=== PATIENT | female | born 1985 | race Caucasian/White ===

== ENCOUNTER 2018-08-30 10:29 | Observation (INO) | payer MEDICAID, SELFPAY ==
[2018-08-30 11:06] LABS: Absolute Lymphocytes (CBC) 1.1 K/uL (0.7-4.9); Absolute Monocytes 0.5 K/uL (0.1-1.3); Absolute Neutrophil 4.9 K/uL (1.8-8.0); Basophils % 0.8 % (0-1.3); Eosinophils % 2.3 % (0-4.4); Hematocrit 33.5 % (36.0-45.0); Lymphocytes % 15.9 % (15.3-44.8); Monocytes % 6.9 % (3.3-12.3)
[2018-08-30 11:15] LABS: Protime INR 1.18
[2018-08-30] MEDS ORDERED: ACETAMINOPHEN 500 MG TAB ONE (11:15)
[2018-08-30] MEDS ORDERED: NITROGLYCERIN 0.4 MG/TAB SL ONE (11:15)
[2018-08-30 11:27] LABS: ALT/SGPT 23 U/L (12-78); AST/SGOT 24 U/L (15-37); Albumin 2.9 g/dL (3.4-5.0); Alkaline Phosphatase 91 U/L (45-117); BUN Blood Urea Nitrogen 12 mg/dL (7-18); Bicarbonate 27 mmol/L (21-32); Bilirubin Direct 0.2 mg/dL (0-0.2); Bilirubin Total 0.8 mg/dL (0.2-1.0); Glucose Level 263 mg/dL (74-106); Magnesium 1.9 mg/dL (1.8-2.4); NT PRO-BNP 239 pg/mL (<125); Protein, Total 6.8 g/dL (6.4-8.2); Sodium Level 138 mmol/L (136-145); Troponin (Emerg Dept Use Only) < 0.02 ng/mL (0.0-0.045)
--- NOTE | 2018-08-30 11:43 | RAD REPORT ---
EXAM DESCRIPTION: RAD - Chest Pa And Lat (2 Views) - 08/30/2018 11:34 am CLINICAL HISTORY: SOB Chest pain. COMPARISON: Chest Pa And Lat (2 Views) dated 05/09/2017; Chest Single View dated 08/08/2016; CHEST PA AND LAT 2 VIEW dated 01/26/2009 FINDINGS: Mild interstitial pulmonary edema suspected. The heart is mildly enlarged in size. No disp laced fractures. IMPRESSION: Mild CHF versus volume overload pattern.
--- NOTE | 2018-08-30 12:48 | RAD REPORT ---
EXAM DESCRIPTION: CT - Chest For Pe Angio - 08/30/2018 12:36 pm CLINICAL HISTORY: Chest pain. SOB COMPARISON: No comparisons TECHNIQUE: CT angiogram of the pulmonary arteries was performed with MIP. All CT scans are performed using dose optimization technique as appropriate and may include automated exposure control or mA/KV adjustment according to patient size. FINDINGS: No evidence of pulmonary thromboembolism. No acute aortic finding demonstrated. Interstitial lung opacities are present bilaterally suggesting interstitial pneumonia or mild interst itial pulmonary edema. No significant pericardial or pleural fluid. Mild soft tissue prominence in the right hilum suggests mild adenopathy. No concerning bony finding. IMPRESSION: No evidence of pulmonary thromboembolism. Mild interstitial pulmonary edema versus interstitial pneumonitis.
[2018-08-30 13:00] LABS: Urine Blood NEGATIVE (NEG); Urine Glucose 2+ (NEG); Urine Protein TRACE (NEG); Urine Specific Gravity 1.015 (1.005-1.030)
--- NOTE | 2018-08-30 13:01 | EDPHYS ---
Physician Documentation [facility] Name: Pretty Wilson Age: 33 yrs Sex: Female : 1985 Arrival Date: 08/30/2018 Time: 10:32 Bed 5 Private MD: None, None ED Physician James Fowler HPI: 08/30 11:01 This 33 yrs old Female presents to ER via Ambulatory with complaints of Feet wa Swelling, Breathing Difficulty. 11:01 The patient has shortness of breath at rest, and the patient has a history of HTN, wa bronchitis. Onset: The symptoms/episode began/occurred gradually, 1 week(s) ago. Duration: The symptoms are continuous, and are steadily getting worse. The patient's shortness of breath is aggravated by coughing, exertion, light activity, is alleviated by nothing. Associated signs and symptoms: Pertinent positives: productive cough, lower extremity swelling, Pertinent negatives: chest pain, dizziness, fever, hemoptysis, loss of consciousness. Severity of symptoms: At their worst the symptoms were moderate in the emergency department the symptoms are worse moderately. The patient has experienced similar episodes in the past, a few times. The patient has not recently seen a physician. 33 yo F morbidly obese. smoke a pack of cigs per day. h/o HTN non-compliant with meds. no PMD. states Blood glucose has been in the 300's but does not carry a dx of DM nor take meds for it. c/o a week of worsening SOB with minimal exertion. also LE swelling bilaterally. admits to having to sit up to catch breath at night the past 1 week. denies chest pain or dizziness. admits to cough with yellow sputum. denies fever. allergic to motrin. past surgical history noted for tubal ligation and 3 c-sections in the past. 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 - Social history:: Smoking status: Patient uses tobacco products, smokes one pack cigarettes per day. - Ebola Screening: : No symptoms or risks identified at this time. - Family history:: Father has/had hypertension. - Hospitalizations: : No recent hospitalization is reported. ROS: 11:07 Constitutional: Negative for fever, chills, and weight loss, Eyes: Negative for injury, wa pain, redness, and discharge, ENT: Negative for injury, pain, and discharge, Neck: Negative for injury, pain, and swelling, Abdomen/GI: Negative for abdominal pain, nausea, vomiting, diarrhea, and constipation, Back: Negative for injury and pain, : Negative for injury, bleeding, discharge, and swelling, Neuro: Negative for headache, weakness, numbness, tingling, and seizure, Psych: Negative for depression, anxiety, suicide ideation, homicidal ideation, and hallucinations. 11:07 Cardiovascular: Positive for edema, paroxysmal nocturnal dyspnea, Negative for chest pain, orthopnea, palpitations. 11:07 Respiratory: Positive for cough, with yellow sputum, dyspnea on exertion, shortness of breath, at rest. Negative for wheezing. 11:07 MS/extremity: Positive for swelling, of the both lower extremities. 11:07 Skin: Positive for rash, diffusely, psoriatic rash. 11:07 All other systems are negative. Exam: 11:10 Head/Face: Normocephalic, atraumatic. Eyes: Pupils equal round and reactive to light, wa extra-ocular motions intact. Lids and lashes normal. Conjunctiva and sclera are non-icteric and not injected. Cornea within normal limits. Periorbital areas with no swelling, redness, or edema. ENT: Nares patent. No nasal discharge, no septal abnormalities noted. Tympanic membranes are normal and external auditory canals are clear. Oropharynx with no redness, swelling, or masses, exudates, or evidence of obstruction, uvula midline. Mucous membranes moist. Neck: Trachea midline, no thyromegaly or masses palpated, and no cervical lymphadenopathy. Supple, full range of motion without nuchal rigidity, or vertebral point tenderness. No Meningismus. Chest/axilla: Normal chest wall appearance and motion. Nontender with no deformity. No lesions are appreciated. Abdomen/GI: Soft, non-tender, with normal bowel sounds. No distension or tympany. No guarding or rebound. No evidence of tenderness throughout. Back: No spinal tenderness. No costovertebral tenderness. Full range of motion. Neuro: Awake and alert, GCS 15, oriented to person, place, time, and situation. Cranial nerves II-XII grossly intact. Motor strength 5/5 in all extremities. Sensory grossly intact. Cerebellar exam normal. Normal gait. Psych: Awake, alert, with orientation to person, place and time. Behavior, mood, and affect are within normal limits. 11:10 Constitutional: The patient appears in no acute distress, NAD. morbidly obese 11:10 Cardiovascular: Rate: tachycardic, Rhythm: regular, Pulses: no pulse deficits are appreciated, Heart sounds: normal, Edema: 2+ edema to level of left ankle, left foot, left toes, right ankle, right foot and right toes, JVD: is not appreciated. 11:10 Respiratory: the patient does not display signs of respiratory distress, Respirations: tachypnea, that is mild, Breath sounds: decreased breath sounds, that are moderate, all lung flields, Respiratory rate: mild tachypnea 11:10 Musculoskeletal/extremity: Extremities: noted bilateral swelling, edema, 1+ pitting. 11:10 Skin: diffuse psoriatic-like rash noted in all 4 extremities. Vital Signs: 10:38 BP 189 / 104; Pulse 138; Resp 20 S; Temp 97.5(TE); Pulse Ox 96% on R/A; aa5 11:16 BP 168 / 83; Pulse 126; Resp 18; Pulse Ox 97% on 2 lpm NC; hj 12:30 BP 170 / 80; Pulse 120; Resp 18; Pulse Ox 98% on 2 lpm NC; hj 13:46 BP 163 / 98; Pulse 118; Resp 18; Pulse Ox 98% on R/A; hj MDM: 10:36 Patient medically screened. ia 11:13 Differential diagnosis: morbidly obese pt with SOB. tachycardic with elevated BP. wa consider CHF, pna, COPD, PE. will resusc., work up and re-evaluate. Will hold ASA for now due to allergy to ibuprofen. 11:15 Data reviewed: vital signs, nurses notes, EKG. Test interpretation: by ED physician or ia midlevel provider: ECG, EKG: interp. by me: HR 128. sinus tach. isolated Q waves in III. no obvious zonal ischemia. 12:06 Test interpretation: by ED physician or midlevel provider: labs: noted for wa hyperglycemia at 263. BNP elevated at 239. anemia at 10.2/33.5. CXR noted for mild cardiomegaly and pulm edema. Response to treatment: the patient's symptoms have mildly improved after treatment, BP improved with nitro SL to 168/83. will give another dose. still tachy at 126. will await chest CT to r/o PE. 12:51 Test interpretation: by ED physician or midlevel provider: CT chest: no PE. pulm edema wa vs interstitial pneumonitis. 12:52 Response to treatment: the patient's symptoms have markedly improved after treatment, ia will admit for further care. nitro SL. lasix IV. empiric coverage with abx. will admit. BP improved. dyspnea improved. 12:57 Physician consultation: Lucille Rivera MD was called at 12:57. ED course: improved. see ia BP trends. dyspnea improved with ED interventions (see orders). will admit for further care. spoke with admit kathleen Rivera. accepted admit. will see pt in ED. 08/30 10:50 Order name: BMP; Complete Time: 11:44 ia 08/30 10:50 Order name: CBC with Diff ia 08/30 10:50 Order name: Hepatic Function; Complete Time: 11:45 ia 08/30 10:50 Order name: Magnesium; Complete Time: 11:46 ia 08/30 10:50 Order name: NT PRO-BNP; Complete Time: 11:45 ia 08/30 10:50 Order name: PT-INR; Complete Time: 11:45 ia 08/30 10:50 Order name: CT Chest For PE Angio; Complete Time: 12:49 ia 08/30 10:50 Order name: XRAY Chest Pa And Lat (2 Views); Complete Time: 11:45 ia 08/30 10:50 Order name: Troponin (emerg Dept Use Only); Complete Time: 11:46 ia 08/30 11:15 Order name: CBC Smear Scan [facility] 08/30 12:17 Order name: Urine Dipstick--Ancillary (enter results) 08/30 12:17 Order name: Urine --Ancillary (enter results) 08/30 13:09 Order name: TSH; Complete Time: 14:10 ia 08/30 14:11 Order name: Sputum Culture [facility] 08/30 10:50 Order name: EKG; Complete Time: 10:51 ia 08/30 10:50 Order name: Cardiac monitoring; Complete Time: : ia 08/30 10:50 Order name: EKG - Nurse/Tech; Complete Time: : ia 08/30 10:50 Order name: IV Saline Lock; Complete Time: : ia 08/30 10:50 Order name: Labs collected and sent; Complete Time: : ia 08/30 10:50 Order name: O2 Per Protocol; Complete Time: : ia 08/30 14:11 Order name: Heart Healthy [facility] 08/30 14:13 Order name: Echo with Doppler [facility] 08/30 10:50 Order name: O2 Sat Monitoring; Complete Time: : ia 08/30 10:58 Order name: Urine Dipstick-Ancillary (obtain specimen); Complete Time: 12:06 ia 08/30 10:58 Order name: Urine Test (obtain specimen); Complete Time: 12:06 ia Administered Medications: 11:00 Drug: Tylenol 1000 mg Route: PO; hj 11:17 Follow up: Response: No adverse reaction hj 11:00 Drug: Nitroglycerin 0.4 mg Route: Sublingual; hj 11:17 Follow up: Response: No adverse reaction hj 12:05 Drug: Nitroglycerin 0.4 mg Route: Sublingual; hj 12:12 Follow up: Response: No adverse reaction; Pain is decreased hj 12:51 Drug: Lasix 40 mg Route: IVP; Site: left forearm; hj 13:04 Follow up: Response: No adverse reaction hj 13:09 Drug: Metoprolol 25 mg Route: PO; hj 13:40 Follow up: Response: No adverse reaction hj 13:27 Drug: Zithromax 500 mg Route: IVPB; Infused Over: 1 hrs; Site: left forearm; hj 13:40 Follow up: IV Status: Infusion continued hj 14:01 Drug: Rocephin - (cefTRIAXone) 2 grams Route: IVPB; Infused Over: 30 mins; Site: left hj forearm; 14:02 Follow up: IV Status: Completed infusion hj 14:01 Drug: Zofran 4 mg Route: IVP; Site: left forearm; hj 14:01 Follow up: Response: No adverse reaction Disposition: 12:59 Critical Care:. ia Disposition: 08/30/18 13:00 Hospitalization ordered by Lucille Rivera for Observation. Preliminary diagnosis are Acute Dyspnea, Acute CHF, Acute Hyperglycemia. - Bed requested for Telemetry/MedSurg (observation). - Status is Observation. hj - Condition is Stable. - Problem is new. - Symptoms have improved. UTI on Admission? No Critical care time excluding procedures: 12:59 Critical care time: Bedside Care: 15 minutes, Consultation: 5 minutes, Family wa Intervention: 10 minutes. Total time: 30 minutes Signatures: Dispatcher [employer] EDMS Marilee Castaneda Audri, RN RN aa5 Adrian Cazares RN RN James Fowler MD MD wa Corrections: (The following items were deleted from the chart) 14:28 13:00 Hospitalization Ordered by Lucille Rivera MD for Observation. Preliminary bd diagnosis is Acute Dyspnea; Acute CHF; Acute Hyperglycemia. Bed requested for Telemetry/MedSurg (observation). Status is Observation. Condition is Stable. Problem is new. Symptoms have improved. UTI on Admission? No. wa 14:53 14:28 08/30/2018 13:00 Hospitalization Ordered by Lucille Rivera MD for Observation. hj Preliminary diagnosis is Acute Dyspnea; Acute CHF; Acute Hyperglycemia. Bed requested for Telemetry/MedSurg (observation). Status is Observation. Condition is Stable. Problem is new. Symptoms have improved. UTI on Admission? No. bd
--- NOTE | 2018-08-30 13:01 | ER ---
Nurse's Notes [facility] Name: Pretty Wilson Age: 33 yrs Sex: Female : 1985 Arrival Date: 08/30/2018 Time: 10:32 Bed 5 Private MD: None, None Diagnosis: Acute Dyspnea;Acute CHF;Acute Hyperglycemia Presentation: 08/30 10:37 Presenting complaint: Patient states: SOB, slight cough, and marge leg swelling that aa5 began 1 week ago. 10:37 Transition of care: patient was not received from another setting of care. Onset of aa5 symptoms was August 2018. Risk Assessment: Do you want to hurt yourself or someone else? Patient reports no desire to harm self or others. Care prior to arrival: None. 10:37 Acuity: MELYSSA 2 aa5 10:37 Method Of Arrival: Ambulatory aa5 10:50 Initial Sepsis Screen: Does the patient meet any 2 criteria? RR > 20 per min. Does the hj patient have a suspected source of infection?. Triage Assessment: 10:50 General: Appears in no apparent distress. uncomfortable, obese, Behavior is calm, hj cooperative, appropriate for age. Respiratory: Reports shortness of breath labored breathing Onset: The symptoms/episode began/occurred a week, the patient has moderate shortness of breath. 10:50 Pain: Denies pain. hj 10:50 EENT: No signs and/or symptoms were reported regarding the EENT system. Neuro: Level of hj Consciousness is awake, alert, obeys commands, Oriented to person, place, time, situation, Appropriate for age. Cardiovascular: Denies chest pain, Capillary refill < 3 seconds Patient's skin is warm and dry. GI: No signs and/or symptoms were reported involving the gastrointestinal system. : No signs and/or symptoms were reported regarding the genitourinary system. Derm: No signs and/or symptoms reported regarding the dermatologic system. Musculoskeletal: No signs and/or symptoms reported regarding the musculoskeletal system. 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 - Social history:: Smoking status: Patient uses tobacco products, smokes one pack cigarettes per day. - Ebola Screening: : No symptoms or risks identified at this time. - Family history:: Father has/had hypertension. - Hospitalizations: : No recent hospitalization is reported. Screenin:50 Abuse screen: Denies threats or abuse. Denies injuries from another. Nutritional hj screening: No deficits noted. Tuberculosis screening: No symptoms or risk factors identified. Fall Risk None identified. Assessment: 10:50 Cardiovascular: Rhythm is sinus tachycardia. Respiratory: Airway is patent Respiratory hj effort is even, labored, Respiratory pattern is regular, symmetrical, 10:50 General: Appears in no apparent distress. uncomfortable, obese, Behavior is calm, hj cooperative, appropriate for age. Pain: Denies pain. Neuro: Level of Consciousness is awake, alert, obeys commands, Oriented to person, place, time, situation, Appropriate for age. GI: No signs and/or symptoms were reported involving the gastrointestinal system. : No signs and/or symptoms were reported regarding the genitourinary system. EENT: No signs and/or symptoms were reported regarding the EENT system. Derm: No signs and/or symptoms reported regarding the dermatologic system. Musculoskeletal: No signs and/or symptoms reported regarding the musculoskeletal system. 12:01 Reassessment: Patient and/or family updated on plan of care and expected duration. Pain hj level reassessed. Patient is alert, oriented x 3, equal unlabored respirations, skin warm/dry/pink. Patient denies pain at this time. Patient states symptoms have improved. Patient states symptoms have not improved. bathroom;. 13:47 Reassessment: awaiting for room placment;. hj Vital Signs: 10:38 BP 189 / 104; Pulse 138; Resp 20 S; Temp 97.5(TE); Pulse Ox 96% on R/A; aa5 11:16 BP 168 / 83; Pulse 126; Resp 18; Pulse Ox 97% on 2 lpm NC; hj 12:30 BP 170 / 80; Pulse 120; Resp 18; Pulse Ox 98% on 2 lpm NC; hj 13:46 BP 163 / 98; Pulse 118; Resp 18; Pulse Ox 98% on R/A; hj ED Course: 10:32 Patient arrived in ED. mr 10:32 None, None is Private Physician. mr 10:34 Adrian Cazares, THIERRY is Primary Nurse. hj 10:36 James Fowler MD is Attending Physician. wa 10:37 Arm band placed on Patient placed in an exam room, on a stretcher. aa5 10:39 Triage completed. aa5 10:50 Initial lab(s) drawn, by me, sent to lab. Inserted saline lock: 22 gauge in left hj forearm, using aseptic technique. Blood collected. 10:54 EKG done, by transportation engineering technician. reviewed by James Fowler MD. at1 10:55 Patient has correct armband on for positive identification. Placed in gown. Bed in low hj position. Call light in reach. Side rails up X 1. 11:00 Radiology exam delayed due to lab results not completed at this time. (BUN/Creatinine). kw1 11:30 X-ray completed. Patient tolerated procedure well. Patient moved to radiology via ls3 wheelchair. Patient moved back from radiology. 11:31 XRAY Chest Pa And Lat (2 Views) In Process Unspecified. EDMS 11:32 Radiology exam delayed due to test not completed at this time. kw1 11:43 Radiology exam delayed due to test not completed at this time. kw1 12:[address] vr 12:37 CT Chest For PE Angio In Process Unspecified. EDMS 12:37 CT completed. Patient tolerated procedure well. Patient moved back from CT. vr 12:59 Lucille Rivera MD is Hospitalizing Provider. wa 14:42 No provider procedures requiring assistance completed. IV discontinued, intact, hj bleeding controlled, No redness/swelling at site. Pressure dressing applied. Administered Medications: 11:00 Drug: Tylenol 1000 mg Route: PO; hj 11:17 Follow up: Response: No adverse reaction hj 11:00 Drug: Nitroglycerin 0.4 mg Route: Sublingual; hj 11:17 Follow up: Response: No adverse reaction hj 12:05 Drug: Nitroglycerin 0.4 mg Route: Sublingual; hj 12:12 Follow up: Response: No adverse reaction; Pain is decreased hj 12:51 Drug: Lasix 40 mg Route: IVP; Site: left forearm; hj 13:04 Follow up: Response: No adverse reaction hj 13:09 Drug: Metoprolol 25 mg Route: PO; hj 13:40 Follow up: Response: No adverse reaction hj 13:27 Drug: Zithromax 500 mg Route: IVPB; Infused Over: 1 hrs; Site: left forearm; hj 13:40 Follow up: IV Status: Infusion continued hj 14:01 Drug: Rocephin - (cefTRIAXone) 2 grams Route: IVPB; Infused Over: 30 mins; Site: left hj forearm; 14:02 Follow up: IV Status: Completed infusion hj 14:01 Drug: Zofran 4 mg Route: IVP; Site: left forearm; hj 14:01 Follow up: Response: No adverse reaction Outcome: 13:00 Decision to Hospitalize by Provider. ga 14:42 Admitted to Tele accompanied by eron, family with patient, via wheelchair, room 403, with oxygen, with chart, Report called to THIERRY Winters 14:42 Condition: stable 14:42 Instructed on the need for admit, Demonstrated understanding of instructions. 14:53 Patient left the ED. Signatures: Dispatcher [employer] Rain Stanley mr Tamela Grider, RN RN Madelyn Cates Amanda, process development manager EKG Tat1 Adrian Cazares RN RN hj Appiah, William, MD MD wa Wilhelm, Kimberly kw1 Hussein Wright3
[2018-08-30] MEDS ORDERED: CEFTRIAXONE/SWI 1gm 0 GM/0 ML SYR ONE (13:11)
[2018-08-30] MEDS ORDERED: FUROSEMIDE 40 MG/4 ML VIAL ONE (13:11)
[2018-08-30 13:26] LABS: Blood Morphology Comment NOTED (NOT SEEN); Urine White Blood Cell Casts OK
[2018-08-30 13:27] LABS: Anisocytosis 2+; Platelet Estimate ADEQ
[2018-08-30] MEDS ORDERED: METOPROLOL TAR 25 MG TAB ONE (13:29)
[2018-08-30] MEDS ORDERED: AZITHROMYCIN IV 500 MG in NA CHLORIDE 0.9% 250 ML IVPB ONE (14:00)
[2018-08-30] MEDS ORDERED: CEFTRIAXONE/SWI 2gm 2 GM/20 ML SYR IVP ONE (14:00)
[2018-08-30] MEDS ORDERED: ONDANSETRON 4 MG/2 ML VIAL ONE (14:11)
--- NOTE | 2018-08-30 14:20 | EKG ---
Test Date: 2018-08-30 Test Time: 10:50:07 Coupon Clerk: CHERYL MEASUREMENT RESULTS: Intervals: Rate: 128 AK: 134 QRSD: 80 QT: 316 QTc: 461 Craig: P: 58 AK: 134 QRS: 18 T: 66 INTERPRETIVE STATEMENTS: Sinus tachycardia Possible Left atrial enlargement Borderline ECG Compared to ECG 08/08/2016 14:21:20 Sinus rhythm no longer present Electronically Signed On 08-30-18 14:19:17 CDT by Norm Boles
[2018-08-30] MEDS ORDERED: GLUCAGON 1 MG/VIAL IM PRN (15:21)
[2018-08-30] MEDS ORDERED: D50W 25 GM/50 ML SYRINGE IV PRN (15:21)
[2018-08-30 15:24] VITALS: BMI 76.1
[2018-08-30] MEDS: ENOXAPARIN 40 MG/0.4 ML SQ SCH (16:44)
[2018-08-30] MEDS: INSULIN -REGULAR HUMAN 50 UNIT/0.5 ML ML SQ SCH ×2 (16:45→20:25)
[2018-08-30] MEDS: FUROSEMIDE 20 MG/ 2ML VIAL IV SCH (16:46)
--- NOTE | 2018-08-30 16:49 | P.HP ---
Certification for Inpatient Patient admitted to: Observation With expected LOS: <2 Midnights Patient will require the following post-hospital care: None Practitioner: I am a practitioner with admitting privileges, knowledge of patient current condition, hospital course, and medical plan of care. Services: Services provided to patient in accordance with Admission requirements found in Title 42 Section 412.3 of the Code of Federal Regulations Patient History Date of Service: 08/30/18 Primary Care Provider: None Reason for admission: SOB and LE swelling History of Present Illness: 33 y/o F Morbidly obese and Smoker with Pmhx of Uncontrolled Diabetes and HTN due to medication noncompliance presented to the ED with C/o 1 week of SOB and LE Swelling. It has been getting progressively worse and thus patient decided to come to the ER. Pt admits to having to sit up to catch breath at night the past 1 week as well. She is unable to lie flat and now can barely finished 4 word sentences without being SOB. She also c/o admits to cough with Yellow sputum. Pt Denies chest pain, N/V, Abd pain or dizziness. Allergies ibuprofen Allergy (Verified 09/11/11 18:26) Itching/Hives/Rash Home Medications: NK [No Home Meds] 08/30/18 - Past Medical/Surgical History Has patient received pneumonia vaccine in the past: No Diabetic: Yes -: HTN -: frequent Bronchitis -: x 3 - Family History Father -: Heart disease, Hypertension, Diabetes Mother -: Heart disease, Hypertension, Diabetes, Kidney disease - Social History Smoking Status: Current every day smoker Alcohol use: No CD- Drugs: No Caffeine use: Yes Place of Residence: Home Review of Systems 10-point ROS is otherwise unremarkable Physical Examination - Vital Signs Temperature: 98.1 F Blood Pressure: 129/78 Pulse: 103 Respirations: 16 Pulse Ox (%): 93 - Physical Exam General: Alert, Oriented x3, Mild distress, Obese Neck: JVD distended Respiratory: Normal air movement, Crackles/rales Cardiovascular: Regular rate/rhythm, Normal S1 S2, Edema (2+ BL LE) Gastrointestinal: Normal bowel sounds, Soft and benign, Non-distended, No tenderness Musculoskeletal: No tenderness, Swelling Integumentary: Rash(es) (Psorasis) Neurological: Normal speech, Normal strength at 5/5 x4 extr, Normal tone Lymphatics: No axilla or inguinal lymphadenopathy - Studies Laboratory Data (last 24 hrs) 08/30/18 10:50: PT 13.8 H, INR 1.18 08/30/18 10:50: WBC 6.7, Hgb 10.2 L, Hct 33.5 L, Plt Count 218 08/30/18 10:50: Sodium 138, Potassium 4.0, BUN 12, Creatinine 0.55, Glucose 263 H, Magnesium 1.9, Total Bilirubin 0.8, AST 24, ALT 23, Alkaline Phosphatase 91 Assessment and Plan - Problems (Diagnosis) (1) Acute respiratory distress Current Visit: Yes Status: Acute Plan: Acute respiratory Distress 2.2 to CHF vs COPD excaerbation -Currently Saturating 87-90% on RA, and does get Tachypneic while completely 4 word senstences. -Will place on NC and wean as tolerated. (2) CHF exacerbation Current Visit: Yes Status: Acute Plan: BL LE 2+ edema, PE with Crackles consistent with CHF. 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: without truck 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 use Diabetes mellitus complication status: without complication Qualified Code(s): E11.9 - Type 2 diabetes mellitus without complications (5) HTN (hypertension) Current Visit: Yes Status: Acute Plan: Currently Elevated HTN -Will start on BB given concern for CHF and tachycardia Qualifiers: Hypertension type: essential hypertension Qualified Code(s): I10 - Essential (primary) hypertension (6) Obesity Current Visit: Yes Status: Chronic Qualifiers: Obesity type: due to excess calories Obesity classification: unspecified obesity classification Serious obesity comorbidity presence: with serious comorbidity Qualified Code(s): E66.09 - Other obesity due to excess calories Discharge Plan: Home Plan to discharge in: Greater than 2 days - Advance Directives Does patient have a Living Will: No Does patient have a Durable POA for Healthcare: No - Code Status/Comfort Care Code Status Assessed: Yes Critical Care: No
[2018-08-30 18:37] LABS: Urine Appearance CLEAR; Urine Bilirubin NEGATIVE (NEG); Urine Blood NEGATIVE (NEG); Urine Color YELLOW; Urine Glucose NEGATIVE (NEG); Urine Protein NEGATIVE (NEG); Urine Specific Gravity 1.025 (1.005-1.030); Urine Urobilinogen 0.2 mg/dL (0.2-1.0); Urine pH 5.5 (5.0-7.0)
[2018-08-30 19:05] LABS: Urine Microscopic Reflex ORDER UMIC
[2018-08-30] MEDS: LEVALBUTEROL 0.63 MG/3 ML NEB NEB SCH (19:27)
[2018-08-30] MEDS: IPRATROPIUM BROM 0.5MG/2.5ML NEB SCH (19:27)
[2018-08-30 19:32] LABS: Urine Bacteria <20 /HPF (<20); Urine Culture Reflex Order NOT NEEDED; Urine RBC <5 /HPF (NONE SEEN)
[2018-08-31] MEDS: LEVALBUTEROL 0.63 MG/3 ML NEB NEB SCH ×2 (01:20→08:30)
[2018-08-31] MEDS: IPRATROPIUM BROM 0.5MG/2.5ML NEB SCH ×2 (01:20→08:30)
[2018-08-31] MEDS ORDERED: METOPROLOL XL 25 MG TAB PO SCH (06:00)
[2018-08-31 06:36] LABS: Absolute Lymphocytes (CBC) 1.2 K/uL (0.7-4.9); Absolute Monocytes 0.4 K/uL (0.1-1.3); Basophils % 0.7 % (0-1.3); Eosinophils % 2.4 % (0-4.4); Hematocrit 32.4 % (36.0-45.0); Lymphocytes % 17.5 % (15.3-44.8); MPV 9.2 fL (7.6-11.3); Monocytes % 6.5 % (3.3-12.3); RBC Red Blood Cell Count 4.92 M/uL (3.86-4.86)
[2018-08-31 06:46] LABS: ALT/SGPT 25 U/L (12-78); AST/SGOT 24 U/L (15-37); Albumin 2.8 g/dL (3.4-5.0); Alkaline Phosphatase 81 U/L (45-117); BUN Blood Urea Nitrogen 13 mg/dL (7-18); Bicarbonate 29 mmol/L (21-32); Bilirubin Total 0.8 mg/dL (0.2-1.0); Glucose Level 198 mg/dL (74-106); Potassium 3.8 mmol/L (3.5-5.1); Protein, Total 6.4 g/dL (6.4-8.2); Sodium Level 139 mmol/L (136-145)
[2018-08-31] MEDS ORDERED: POTASSIUM CL SA 10 MEQ TAB PO ONE (07:23)
[2018-08-31] MEDS: INSULIN -REGULAR HUMAN 50 UNIT/0.5 ML ML SQ SCH ×2 (07:30→11:30)
[2018-08-31 08:44] VITALS: BP 134/71; TEMP 98.6
[2018-08-31] MEDS: FUROSEMIDE 20 MG/ 2ML VIAL IV SCH (08:50)
[2018-08-31] MEDS: ENOXAPARIN 40 MG/0.4 ML SQ SCH (08:50)
[2018-08-31 08:52] VITALS: O2SAT 94
--- NOTE | 2018-08-31 09:52 | ECHO ---
HEIGHT: 5 ft 4.5 in WEIGHT: 450 lb 8 oz DATE OF STUDY: 08/31/[address]: Lucille Rivera MD 2-DIMENSIONAL: YES M.MODE: YES DOPPLER: YES COLOR FLOW: YES TDS: NO PORTABLE: NO DEFINITY: NO BUBBLE STUDY: NO DIAGNOSIS: CONGESTIVE HEART FAILURE CARDIAC HISTORY: CATHERIZATION: NO SURGERY: NO PROSTHETIC VALVE: NO PACEMAKER: NO MEASUREMENTS (cm) DIASTOLIC (NORMALS) SYSTOLIC (NORMALS) IVSd 1.3 (0.6-1.2) LA Diam 4.3 (1.9-4.0) LVEF 69% LVIDd 5.5 (3.5-5.7) LVIDs 3.4 (2.0-3.5) %FS 39% LVPWd 1.2 (0.6-1.2) Ao Diam 2.8 (2.0-3.7) 2 DIMENSIONAL ASSESSMENT: RIGHT ATRIUM: NORMAL LEFT ATRIUM: DILATED RIGHT VENTRICLE: NORMAL LEFT VENTRICLE: NORMAL TRICUSPID VALVE: NORMAL MITRAL VALVE: NORMAL PULMONIC VALVE: NORMAL AORTIC VALVE: NORMAL PERICARDIAL EFFUSION: NONE AORTIC ROOT: NORMAL LEFT VENTRICULAR WALL MOTION: NORMAL EJECTION FRACTION. DOPPLER/COLOR FLOW: MILD TRICUSPID REGURGITATION RIGHT VENTRICULAR SYSTOLIC PRESSURE 43mmHg. COMMENTS: NORMAL LEFT VENTRICULAR SIZE. NORMAL LEFT VENTRICULAR EJECTION FRACTION. DECREASED LEFT VENTRICULAR COMPLIANCE. LEFT ATRIAL ENLARGEMENT. MILD PULMONARY HYPERTENSION RIGHT VENTRICULAR SYSTOLIC PRESSURE 43mmHg. TECHNOLOGIST: ARUNA YATES
--- NOTE | 2018-08-31 13:20 | P.SSS ---
Patient History Date of Service: 08/31/18 Primary Care Provider: None Reason for admission: SOB and LE swelling History of Present Illness: 33 y/o F Morbidly obese and Smoker with Pmhx of Uncontrolled Diabetes and HTN due to medication noncompliance presented to the ED with C/o 1 week of SOB and LE Swelling. It has been getting progressively worse and thus patient decided to come to the ER. Pt admits to having to sit up to catch breath at night the past 1 week as well. She is unable to lie flat and now can barely finished 4 word sentences without being SOB. She also c/o admits to cough with Yellow sputum. Pt Denies chest pain, N/V, Abd pain or dizziness. Allergies ibuprofen Allergy (Verified 09/11/11 18:26) Itching/Hives/Rash Home Medications: Budesonide/Formoterol Fumarate [Symbicort 80-4.5 Mcg Inhaler] 2 puff IH BID #1 hfa.aer.ad 08/31/18 Levalbuterol Tartrate [Xopenex Hfa] 15 gm IH Q4H PRN #1 hfa.aer.ad 08/31/18 Lisinopril 5 mg PO DAILY #30 tablet 08/31/18 Metformin ER [Glucophage ER*] 1,000 mg PO DAILY #30 tab.sa 08/31/18 Metoprolol Succinate [Toprol Xl*] 25 mg PO [id number] #30 tab 08/31/18 - Past Medical/Surgical History Has patient received pneumonia vaccine in the past: No Diabetic: Yes -: HTN -: frequent Bronchitis -: x 3 - Family History Father -: Heart disease, Hypertension, Diabetes Mother -: Heart disease, Hypertension, Diabetes, Kidney disease - Social History Smoking Status: Current every day smoker Alcohol use: No CD- Drugs: No Caffeine use: Yes Place of Residence: Home Review of Systems 10-point ROS is otherwise unremarkable Physical Examination - Vital Signs Temperature: 98.6 F Blood Pressure: 134/71 Pulse: 111 Respirations: 18 Pulse Ox (%): 98 - Physical Exam General: Alert, In no apparent distress HEENT: Atraumatic, PERRLA, Mucous membr. moist/pink, EOMI, Sclerae nonicteric Neck: Supple, 2+ carotid pulse no bruit, No LAD, Without JVD or thyroid abnormality Respiratory: Clear to auscultation bilaterally, Normal air movement Cardiovascular: Regular rate/rhythm, Normal S1 S2 Gastrointestinal: Normal bowel sounds, No tenderness Musculoskeletal: No tenderness Integumentary: No rashes Neurological: Normal gait, Normal speech, Normal strength at 5/5 x4 extr, Normal tone, Normal affect Lymphatics: No axilla or inguinal lymphadenopathy - Diagnosis (Problem(s)) (1) Acute respiratory distress Current Visit: Yes Status: Acute (2) CHF exacerbation Current Visit: Yes Status: Ruled-out Qualifiers: Heart failure type: diastolic Qualified Code(s): I50.33 - Acute on chronic diastolic (congestive) heart failure (3) COPD exacerbation Current Visit: Yes Status: Acute (4) Diabetes Current Visit: Yes Status: Acute Qualifiers: Diabetes mellitus 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 operator truck driver use Diabetes mellitus complication status: without complication Qualified Code(s): E11.9 - Type 2 diabetes mellitus without complications (5) HTN (hypertension) Current Visit: Yes Status: Acute Qualifiers: Hypertension type: essential hypertension Qualified Code(s): I10 - Essential (primary) hypertension (6) Obesity Current Visit: Yes Status: Chronic Qualifiers: Obesity type: due to excess calories Obesity classification: unspecified obesity classification Serious obesity comorbidity presence: with serious comorbidity Qualified Code(s): E66.09 - Other obesity due to excess calories Treatment Summary: Pt remained stable while here in the hospital Admitted for Acute respiratory Distress 2.2 to Diastolic Dysfunction, Uncontrolled HTN and Uncontrolled Diabetes. Started on IV lasix and ECHO was ordered. ECHO with Diastolic dysfunction and mild Pulmonary HTN. Pt with marked improvement after IV lasix and Duonebs. DC home with F.u with Cardiology and New ppx for metformin, metoprolol and Lisinopril - Disposition Disposition: ROUTINE DISCHARGE Condition: GOOD Patient Discharge Instructions: Please establish Care with PCP and F.u with Cardiology in 1 to 2 week post discharge. Your Echocardiogram is consistent with Pulmonary HTN and dilated Atrium. You will need to be on the following medication. 1. metoprolol 25mg daily. 2. Metformin 1000mg daily. 3. Lisinopril 5mg daily Diet: Regular Activity: Ad ricco
== END 2018-08-31 14:30 | disposition home or self-care (01) ==
LOC: ER 10:29 → ERHOLD 14:10 → 4TH 14:40
PROVIDERS: ADMIT Family Medicine; ATTEND Family Medicine
DX: I11.0 Hypertensive heart disease with heart failure (principal); I50.33 Acute on chronic diastolic (congestive) heart failure; R06.03 Acute respiratory distress; I27.20 Pulmonary hypertension, unspecified; J44.1 Chronic obstructive pulmonary disease with (acute) exacerbation; F17.210 Nicotine dependence, cigarettes, uncomplicated; E11.9 Type 2 diabetes mellitus without complications; E66.9 Obesity, unspecified; Z68.45 Body mass index [BMI] 70 or greater, adult; Z71.3 Dietary counseling and surveillance; Z88.6 Allergy status to analgesic agent; Z91.14 Patient's other noncompliance with medication regimen
CPT/HCPCS: 36415; 71046; 71275; 80048; 80053; 80076; 81003; 81015; 81025; 82962; 83735; 83880; 84443; 84484; 85025; 85610; 87070; 87086; 87088; 87205; 93005; 93306; 94760; 96374; 96375; 99285; G0378; J0456; J0696; J1650; J1940; J2405; Q9967

== ENCOUNTER 2019-06-20 21:14 | Emergency (ER) | payer SELFPAY ==
--- OUTSIDE RECORDS SUMMARY | 2019-06-20 21:15 | XMS REPORT ---
:1985 Author Organization [employer] Care Team Providers Name Role Phone Orin Briscoe Provider Role Unavailable Allergies No Known Allergies Problems Problem Type Condition Code Onset Dates Condition Status Problem Circulation problem I99.9 Active Problem Tobacco use Z72.0 Active Problem Anemia, unspecified type D64.9 Active Problem Morbid obesity E66.01 Active Problem Snoring R06.83 Active Problem Psoriasis L40.9 Active Problem Heart disease I51.9 Active Problem Peripheral edema R60.9 Active Problem Memory problem R41.3 Active Problem Apnea R06.81 Active Problem Congestive heart failure, I50.9 Active unspecified HF chronicity, unspecified heart failure type Problem Hypertension, unspecified type I10 Active Problem Uncontrolled type 2 diabetes E11.65 Active mellitus with hyperglycemia Problem Abnormal heart rhythm I49.9 Active Problem Low TSH level R79.89 Active Problem BMI 70 and over, adult Z68.45 Active Medications No Known Medications Results No Known Results Summary Purpose [employer] Submission
--- OUTSIDE RECORDS SUMMARY | 2019-06-20 21:15 | XMS REPORT ---
:1985 Author Organization [employer] Care Team Providers Name Role Phone KevinOrin estrada Provider Role Unavailable Allergies, Adverse Reactions, Alerts Substance Reaction Event Type Ibuprofen swelling of lips Drug Allergy Problems Problem Type Condition Code Onset Dates Condition Status Assessment Psoriasis L40.9 Active Assessment Tobacco use Z72.0 Active Assessment Apnea R06.81 Active Assessment Snoring R06.83 Active Assessment BMI 70 and over, adult Z68.45 Active Problem Abnormal heart rhythm I49.9 Active Assessment Morbid obesity E66.01 Active Problem BMI 70 and over, adult Z68.45 Active Assessment Follow-up exam Z09 Active Problem Circulation problem I99.9 Active Problem Tobacco use Z72.0 Active Problem Anemia, unspecified type D64.9 Active Problem Morbid obesity E66.01 Active Problem Snoring R06.83 Active Assessment Uncontrolled type 2 diabetes E11.65 Active mellitus with hyperglycemia Assessment Anemia, unspecified type D64.9 Active Problem Psoriasis L40.9 Active Assessment Low TSH level R79.89 Active Problem Heart disease I51.9 Active Problem Peripheral edema R60.9 Active Problem Memory problem R41.3 Active Problem Apnea R06.81 Active Assessment Hypertension, unspecified type I10 Active Assessment Peripheral edema R60.9 Active Assessment Congestive heart failure, I50.9 Active unspecified HF chronicity, unspecified heart failure type Problem Congestive heart failure, I50.9 Active unspecified HF chronicity, unspecified heart failure type Problem Hypertension, unspecified type I10 Active Problem Uncontrolled type 2 diabetes E11.65 Active mellitus with hyperglycemia Problem Low TSH level R79.89 Active Medications Medication Code Code Instructions Start End Status Dosage System Date Date Lisinopril ND 99406414907 10 MG Orally Active 1 tablet Once a day Symbicort ND 98213669108 80-4.5 MCG/ACT Active 2 puffs Inhalation Twice a day Xopenex HFA ND 88264939912 45 MCG/ACT Active 1 puff as Inhalation every needed 4 hrs MetFORMIN HCl ND 72942700190 1000 MG Orally Active 1 tablet ER (MOD) Once a day ProAir HFA [facility] 86033570442 108 (90 Base) Active 2 puffs as MCG/ACT needed Inhalation Every 4-6 hours Metoprolol [facility] 53163580516 25 mg Orally Active 1 capsule Succinate Once a day Furosemide [facility] 92589674194 20 mg Orally August Active 1 tablet as Once a day 2018 needed for swelling Results Name Result Date Reference Range Unit Abnormality Flag HEMOGLOBIN A1C ----A1C 7.3% [id number] Summary Purpose [employer]Works Submission
--- NOTE | 2019-06-20 22:39 | ER ---
Nurse's Notes [facility] Name: Pretty Wilson Age: 34 yrs Sex: Female : 1985 Arrival Date: 06/20/2019 Time: 21:17 Bed 14 Private MD: Diagnosis: Hordeolum internum left upper eyelid Presentation: 06/20 21:22 Presenting complaint: Patient states: L eye has a bump and is bruised since a few days ca1 ago. No visual problems reported. C/O pain on affected area. Transition of care: patient was not received from another setting of care. Mechanism of Injury: No Mechanism of Injury. The patient denies any loss of vision. Onset of symptoms was June 20, 2019. Risk Assessment: Do you want to hurt yourself or someone else? Patient reports no desire to harm self or others. Initial Sepsis Screen: Does the patient meet any 2 criteria? No. Patient's initial sepsis screen is negative. Does the patient have a suspected source of infection? No. Patient's initial sepsis screen is negative. Care prior to arrival: None. 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 - Coronavirus screen:: The patient has NOT traveled to [place], [place], or [place] in the past 14 days. The patient has NOT had contact with known/suspected case of Coronavirus?. - Social history:: Smoking status: Patient reports the use of cigarette tobacco products, smokes one-half pack cigarettes per day. - Ebola Screening: : Patient negative for fever greater than or equal to 101.5 degrees Fahrenheit, and additional compatible Ebola Virus Disease symptoms Patient denies exposure to infectious person Patient denies travel to an Ebola-affected area in the 21 days before illness onset No symptoms or risks identified at this time. Screenin:59 Abuse screen: Denies threats or abuse. Nutritional screening: No deficits noted. jb4 Tuberculosis screening: No symptoms or risk factors identified. Fall Risk None identified. Assessment: 21:59 General: Appears in no apparent distress. comfortable, Behavior is calm, cooperative, jb4 appropriate for age. Pain: Complains of pain in left upper eyelid Pain does not radiate. Pain currently is 0 out of 10 on a pain scale. at worst was 6 out of 10 on a pain scale. Quality of pain is described as aching, Pain began 2-3 days ago. Neuro: Level of Consciousness is awake, alert, obeys commands, confused, Oriented to person, place, time, situation. Cardiovascular: Patient's skin is warm and dry. Respiratory: Airway is patent Respiratory effort is even, unlabored, Respiratory pattern is regular, symmetrical. GI: No signs and/or symptoms were reported involving the gastrointestinal system. : No signs and/or symptoms were reported regarding the genitourinary system. EENT: Eyes are clear. Sclera/Cornea are clear in outer aspect of conjuctiva of right eye, iris of right eye, inner aspect of conjuctiva of right eye, outer aspect of conjuctiva of left eye, iris of left eye and inner aspect of conjunctiva of left eye Lid(s) w/ stye noted left upper eyelid. Derm: Skin is intact, Skin is pink, warm \T\ dry. Musculoskeletal: Circulation, motion, and sensation intact. Range of motion: intact in all extremities. 23:12 Reassessment: Patient appears in no apparent distress at this time. Patient and/or jb4 family updated on plan of care and expected duration. Pain level reassessed. Patient is alert, oriented x 3, equal unlabored respirations, skin warm/dry/pink. Vital Signs: 21:26 BP 146 / 82; Pulse 90; Resp 19 S; Temp 97.4(O); Pulse Ox 99% on R/A; Weight 204.12 kg ca1 (R); Height 5 ft. 5 in. (165.10 cm) (R); 23:12 BP 149 / 77; Pulse 81; Resp 16; Pulse Ox 99% on R/A; jb4 21:26 Body Mass Index 74.88 (204.12 kg, 165.10 cm) ca1 ED Course: 21:17 Patient arrived in ED. cl3 21:23 Triage completed. ca1 21:26 Arm band placed on right wrist. ca1 21:49 Jay Brian NP is PHCP. pm1 21:49 Peter Moran MD is Attending Physician. pm1 21:58 Chandra Ayoub, RN is Primary Nurse. jb4 21:59 Patient has correct armband on for positive identification. Bed in low position. Call jb4 light in reach. Side rails up X 1. 23:12 No provider procedures requiring assistance completed. Patient did not have IV access jb4 during this emergency room visit. Administered Medications: 22:45 Drug: Crucible 5 mg-325 mg 1 tabs {Note: Rass score 0.} Route: PO; jb4 23:14 Follow up: Response: No adverse reaction; Pain is decreased; RASS: Alert and Calm (0) jb4 Outcome: 22:38 Discharge ordered by MD. pm1 23:12 Discharged to home ambulatory, with family. jb4 23:12 Condition: stable 23:12 Discharge instructions given to patient, family, Instructed on discharge instructions, follow up and referral plans. medication usage, Demonstrated understanding of instructions, follow-up care, medications, Prescriptions given X 2. 23:14 Patient left the ED. jb4 Signatures: Jay Brian, [employer] pm1 Chandra Ayoub, RN RN jb4 Rosalva Kay RN RN ca1 Jessica Diaz cl3 Corrections: (The following items were deleted from the chart) 22:45 22:45 Crucible 5 mg-325 mg 1 tabs PO jb4 jb4
--- NOTE | 2019-06-20 22:39 | EDPHYS ---
Physician Documentation [facility] Name: Pretty Wilson Age: 34 yrs Sex: Female : 1985 Arrival Date: 06/20/2019 Time: 21:17 Bed 14 Private MD: ED Physician Peter Moran HPI: 06/20 22:33 This 34 yrs old Female presents to ER via Ambulatory with complaints of Left pm1 Eye Pain. 22:33 The patient is experiencing pain, to the left eye, possible stye. Onset: The pm1 symptoms/episode began/occurred 3 day(s) ago. Duration: the symptoms are continuous. Aggravated by nothing. Alleviated by nothing. Associated signs and symptoms: Pertinent negatives: fever, headache. Severity of symptoms: in the emergency department the symptoms are worse. The patient has not experienced similar symptoms in the past. It is unknown whether or not the patient has recently seen a physician. 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 - Coronavirus screen:: The patient has NOT traveled to [place], [place], or [place] in the past 14 days. The patient has NOT had contact with known/suspected case of Coronavirus?. - Social history:: Smoking status: Patient reports the use of cigarette tobacco products, smokes one-half pack cigarettes per day. - Ebola Screening: : Patient negative for fever greater than or equal to 101.5 degrees Fahrenheit, and additional compatible Ebola Virus Disease symptoms Patient denies exposure to infectious person Patient denies travel to an Ebola-affected area in the 21 days before illness onset No symptoms or risks identified at this time. ROS: 22:33 Constitutional: Negative for fever, chills, and weight loss. pm1 22:33 ENT: Negative for injury, pain, and discharge, Neck: Negative for injury, pain, and swelling, Cardiovascular: Negative for chest pain, palpitations, and edema, Respiratory: Negative for shortness of breath, cough, wheezing, and pleuritic chest pain, MS/Extremity: Negative for injury and deformity, Skin: Negative for injury, rash, and discoloration, Neuro: Negative for headache, weakness, numbness, tingling, and seizure. 22:33 Eyes: Positive for pain, swelling, of the left upper eyelid, Negative for discharge, visual disturbance. 22:33 All other systems are negative. Exam: 22:33 Constitutional: This is a well developed, well nourished patient who is awake, alert, pm1 and in no acute distress. Head/Face: Normocephalic, atraumatic. 22:33 ENT: Nares patent. No nasal discharge, no septal abnormalities noted. Tympanic membranes are normal and external auditory canals are clear. Oropharynx with no redness, swelling, or masses, exudates, or evidence of obstruction, uvula midline. Mucous membranes moist. Cardiovascular: Regular rate and rhythm with a normal S1 and S2. No gallops, murmurs, or rubs Respiratory: Lungs have equal breath sounds bilaterally, clear to auscultation and percussion. No rales, rhonchi or wheezes noted. No increased work of breathing, no retractions or nasal flaring. 22:33 Eyes: Pupils: no acute changes, Extraocular movements: no acute changes, Conjunctiva: normal, Lids and lashes: stye, on the left lid, upper. 22:33 Skin: Appearance: normal except for affected area, consistent with eczema, on the right arm and left arm. 22:33 Neuro: Orientation: is normal, Motor: is normal, moves all fours. Vital Signs: 21:26 BP 146 / 82; Pulse 90; Resp 19 S; Temp 97.4(O); Pulse Ox 99% on R/A; Weight 204.12 kg ca1 (R); Height 5 ft. 5 in. (165.10 cm) (R); 23:12 BP 149 / 77; Pulse 81; Resp 16; Pulse Ox 99% on R/A; jb4 21:26 Body Mass Index 74.88 (204.12 kg, 165.10 cm) ca1 MDM: 21:58 Patient medically screened. pm1 22:33 Data reviewed: vital signs. Data interpreted: Pulse oximetry: on room air is 99 %. pm1 Interpretation: normal. Counseling: I had a detailed discussion with the patient and/or guardian regarding: the historical points, exam findings, and any diagnostic results supporting the discharge/admit diagnosis, the need for outpatient follow up, for definitive care, an opthalmologist, to return to the emergency department if symptoms worsen or persist or if there are any questions or concerns that arise at home. Administered Medications: 22:45 Drug: [place] 5 mg-325 mg 1 tabs {Note: Rass score 0.} Route: PO; jb4 23:14 Follow up: Response: No adverse reaction; Pain is decreased; RASS: Alert and Calm (0) jb4 Disposition: 06/21 05:19 Co-signature as Attending Physician, Peter Moran MD I agree with the assessment and 4 plan of care. Disposition: 06/20/19 22:38 Discharged to Home. Impression: Hordeolum internum left upper eyelid. - Condition is Stable. - Discharge Instructions: Stye. - Prescriptions for Tylenol- Codeine #3 300-30 mg Oral Tablet - take 2 tablets by ORAL route every 6 hours As needed; 20 tablet. Erythromycin 5 mg/gram (0.5 %) Ophthalmic Ointment - apply 1 centimeter by OPHTHALMIC route every 8 hours for 7 days; 1 tube. - Medication Reconciliation Form, Thank You Letter, Antibiotic Education, Prescription Opioid Use form. - Follow up: Emergency Department; When: As needed; Reason: Worsening of condition. Follow up: Private Physician; When: 2 - 3 days; Reason: Recheck today's complaints, Continuance of care, Re-evaluation by your physician. - Problem is new. - Symptoms have improved. Signatures: Jay Brian NP [employer] pm1 Chandra Ayoub RN RN 4 Peter Moran MD MD [facility] Rosalva Kay RN RN ca1 Corrections: (The following items were deleted from the chart) 06/20 23:14 22:38 06/20/2019 22:38 Discharged to Home. Impression: Hordeolum internum left upper jb4 eyelid. Condition is Stable. Forms are Medication Reconciliation Form, Thank You Letter, Antibiotic Education, Prescription Opioid Use. Follow up: Emergency Department; When: As needed; Reason: Worsening of condition. Follow up: Private Physician; When: 2 - 3 days; Reason: Recheck today's complaints, Continuance of care, Re-evaluation by your physician. Problem is new. Symptoms have improved. pm1
[2019-06-20] MEDS ORDERED: HYDROCODONE/APAP 5/325 MG TAB ONE (22:41)
[2019-06-22 23:55] VITALS: TEMP 97.4; O2SAT 99
[2019-06-22 23:56] VITALS: BP 149/77
== END 2019-06-20 23:14 | disposition home or self-care (01) ==
LOC: ER 21:14
DX: H00.024 Hordeolum internum left upper eyelid (principal); I10 Essential (primary) hypertension; E11.9 Type 2 diabetes mellitus without complications; F17.210 Nicotine dependence, cigarettes, uncomplicated; Z88.6 Allergy status to analgesic agent
CPT/HCPCS: 99283

== ENCOUNTER 2019-06-27 12:33 | Emergency (ER) | payer SELFPAY ==
--- OUTSIDE RECORDS SUMMARY | 2019-06-27 12:35 | XMS REPORT ---
[...] Medications Results No Known Results Summary Purpose eClinicalCeram Hyd Submission
--- OUTSIDE RECORDS SUMMARY | 2019-06-27 12:35 | XMS REPORT ---
[...] Status Dosage System Date Date Lisinopril ND 88802478516 10 MG Orally Active 1 tablet Once a day Symbicort ND 82141396050 80-4.5 MCG/ACT Active 2 puffs Inhalation Twice a day Xopenex HFA ND 15407309429 45 MCG/ACT Active 1 puff as Inhalation every needed 4 hrs MetFORMIN HCl ND 05358555652 1000 MG Orally Active 1 tablet ER (MOD) Once a day ProAir HFA [facility] 36301180358 108 (90 Base) Active 2 puffs as MCG/ACT needed Inhalation Every 4-6 hours Metoprolol [facility] 97259358261 25 mg Orally Active 1 capsule Succinate Once a day Furosemide [facility] 22869860201 20 mg Orally August Active 1 tablet as Once a day 2018 needed for swelling Results Name Result Date Reference Range Unit Abnormality Flag HEMOGLOBIN A1C ----A1C 7.3% [id number] Summary Purpose eClinicalWorks Submission
[2019-06-27] MEDS ORDERED: ALBUTEROL 2.5 MG/3 ML NEB SOL ONE (13:25)
[2019-06-27] MEDS ORDERED: IPRATROPIUM BROM 0.5MG/2.5ML ONE (13:25)
[2019-06-27 13:28] LABS: Urine Blood NEGATIVE (NEG); Urine Glucose NEGATIVE (NEG); Urine Protein NEGATIVE (NEG); Urine Specific Gravity 1.015 (1.005-1.030)
--- NOTE | 2019-06-27 14:06 | RAD REPORT ---
EXAM DESCRIPTION: Leonor Harkins (2 Views)06/27/2019 1:59 pm CLINICAL HISTORY: Cough COMPARISON: 2014 FINDINGS: The lungs appear clear of acute infiltrate. The heart is mildly enlarged IMPRESSION: No acute abnormalities displayed
--- NOTE | 2019-06-27 14:07 | RAD REPORT ---
EXAM DESCRIPTION: RAD - Forearm Right - 06/27/2019 1:59 pm CLINICAL HISTORY: Right arm pain FINDINGS: No fracture is seen. No bony lesion. Negative ulnar variance
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
[2019-06-27 14:56] VITALS: BP 151/99; TEMP 98.4
[2019-06-27 14:57] VITALS: O2SAT 97
== END 2019-06-27 14:34 | disposition home or self-care (01) ==
LOC: ER 12:33
DX: J06.9 Acute upper respiratory infection, unspecified (principal); M54.5 Low back pain; M79.631 Pain in right forearm; V43.52XA Car driver injured in collision with other type car in traffic accident, initial encounter; Y93.89 Activity, other specified; Y92.410 Unspecified street and highway as the place of occurrence of the external cause
CPT/HCPCS: 71046; 81003; 81025; 87804; 99284

== ENCOUNTER 2019-07-09 11:21 | Emergency (ER) | payer SELFPAY ==
--- OUTSIDE RECORDS SUMMARY | 2019-07-09 11:23 | XMS REPORT ---
[...] Medications Results No Known Results Summary Purpose eClinicalProspect Accelerator Submission
--- OUTSIDE RECORDS SUMMARY | 2019-07-09 11:23 | XMS REPORT ---
[...] Status Dosage System Date Date Lisinopril ND 23267293688 10 MG Orally Active 1 tablet Once a day Symbicort ND 16010906100 80-4.5 MCG/ACT Active 2 puffs Inhalation Twice a day Xopenex HFA ND 74824080834 45 MCG/ACT Active 1 puff as Inhalation every needed 4 hrs MetFORMIN HCl ND 59155204199 1000 MG Orally Active 1 tablet ER (MOD) Once a day ProAir HFA [facility] 82962322597 108 (90 Base) Active 2 puffs as MCG/ACT needed Inhalation Every 4-6 hours Metoprolol [facility] 25908894638 25 mg Orally Active 1 capsule Succinate Once a day Furosemide [facility] 24442794462 20 mg Orally August Active 1 tablet as Once a day 2018 needed for swelling Results Name Result Date Reference Range Unit Abnormality Flag HEMOGLOBIN A1C ----A1C 7.3% [id number] Summary Purpose eClinicalWorks Submission
[2019-07-09] MEDS ORDERED: lisinopriL 10 MG TAB ONE (12:18)
--- NOTE | 2019-07-09 12:20 | RAD REPORT ---
EXAM DESCRIPTION: RAD - Chest Single View - 07/09/2019 12:09 pm CLINICAL HISTORY: COUGH Chest pain. COMPARISON: Chest Pa And Lat (2 Views) dated 06/27/2019; Chest Pa And Lat (2 Views) dated 08/30/2018; Chest Pa And Lat (2 Views) dated 05/09/2017; Chest Single View dated 08/08/2016 FINDINGS: Portable technique limits examination quality. The lungs are grossly clear. The heart is mildly enlarged in size. No displaced fractures. IMPRESSION: No acute intrathoracic process suspected.
[2019-07-09 13:25] LABS: Absolute Lymphocytes (CBC) 2.1 K/uL (0.7-4.9); Basophils % 0.2 % (0-1.3); Hematocrit 34.7 % (36.0-45.0); Lymphocytes % 24.3 % (15.3-44.8); MPV 10.1 fL (7.6-11.3); RBC Red Blood Cell Count 5.17 M/uL (3.86-4.86)
[2019-07-09 13:46] LABS: ALT/SGPT 17 U/L (12-78); AST/SGOT 16 U/L (15-37); Albumin 3.1 g/dL (3.4-5.0); Alkaline Phosphatase 75 U/L (45-117); BUN Blood Urea Nitrogen 13 mg/dL (7-18); Bicarbonate 24 mmol/L (21-32); Bilirubin Total 0.6 mg/dL (0.2-1.0); Glucose Level 116 mg/dL (74-106); Potassium 4.7 mmol/L (3.5-5.1); Sodium Level 142 mmol/L (136-145)
--- NOTE | 2019-07-09 13:51 | EDPHYS ---
Physician Documentation [facility] Name: Pretty Wilson Age: 34 yrs Sex: Female : 1985 Arrival Date: 07/09/2019 Time: 11:26 Bed 6 Private MD: ED Physician Daniel Sánchez HPI: 11:55 This 34 yrs old Female presents to ER via Unassigned with complaints of High melissa Blood Pressure. 11:55 The patient has elevated blood pressure and discovered this at home. Onset: The melissa symptoms/episode began/occurred 3 day(s) ago. Modifying factors: The symptoms are aggravated by activity, The symptoms are alleviated by remaining still, prescription meds. Associated signs and symptoms: Pertinent positives: headache. Severity of symptoms: At its worst the blood pressure was moderate, in the emergency department the blood pressure is unchanged. The patient has experienced similar episodes in the past, multiple times. 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 - Social history:: Smoking status: Patient reports the use of cigarette tobacco products, smokes one pack cigarettes per day. - Family history:: not pertinent. ROS: 11:55 Constitutional: Negative for fever, chills, and weight loss, Eyes: Negative for injury, melissa pain, redness, and discharge, ENT: Negative for injury, pain, and discharge, Neck: Negative for injury, pain, and swelling, Cardiovascular: Negative for chest pain, palpitations, and edema, Respiratory: Negative for shortness of breath, cough, wheezing, and pleuritic chest pain, Abdomen/GI: Negative for abdominal pain, nausea, vomiting, diarrhea, and constipation, Back: Negative for injury and pain, : Negative for injury, bleeding, discharge, and swelling, MS/Extremity: Negative for injury and deformity, Skin: Negative for injury, rash, and discoloration, Neuro: Negative for headache, weakness, numbness, tingling, and seizure, Psych: Negative for depression, anxiety, suicide ideation, homicidal ideation, and hallucinations, Allergy/Immunology: Negative for hives, rash, and allergies, Endocrine: Negative for neck swelling, polydipsia, polyuria, polyphagia, and marked weight changes, Hematologic/Lymphatic: Negative for swollen nodes, abnormal bleeding, and unusual bruising. Exam: 11:57 Constitutional: This is a well developed, well nourished patient who is awake, alert, melissa and in no acute distress. Head/Face: Normocephalic, atraumatic. Eyes: Pupils equal round and reactive to light, extra-ocular motions intact. Lids and lashes normal. Conjunctiva and sclera are non-icteric and not injected. Cornea within normal limits. Periorbital areas with no swelling, redness, or edema. ENT: Nares patent. No nasal discharge, no septal abnormalities noted. Tympanic membranes are normal and external auditory canals are clear. Oropharynx with no redness, swelling, or masses, exudates, or evidence of obstruction, uvula midline. Mucous membranes moist. Neck: Trachea midline, no thyromegaly or masses palpated, and no cervical lymphadenopathy. Supple, full range of motion without nuchal rigidity, or vertebral point tenderness. No Meningismus. Chest/axilla: Normal chest wall appearance and motion. Nontender with no deformity. No lesions are appreciated. Cardiovascular: Regular rate and rhythm with a normal S1 and S2. No gallops, murmurs, or rubs. Normal PMI, no JVD. No pulse deficits. Respiratory: Lungs have equal breath sounds bilaterally, clear to auscultation and percussion. No rales, rhonchi or wheezes noted. No increased work of breathing, no retractions or nasal flaring. Abdomen/GI: Soft, non-tender, with normal bowel sounds. No distension or tympany. No guarding or rebound. No evidence of tenderness throughout. Back: No spinal tenderness. No costovertebral tenderness. Full range of motion. Skin: Warm, dry with normal turgor. Normal color with no rashes, no lesions, and no evidence of cellulitis. MS/ Extremity: Pulses equal, no cyanosis. Neurovascular intact. Full, normal range of motion. Neuro: Awake and alert, GCS 15, oriented to person, place, time, and situation. Cranial nerves II-XII grossly intact. Motor strength 5/5 in all extremities. Sensory grossly intact. Cerebellar exam normal. Normal gait. Psych: Awake, alert, with orientation to person, place and time. Behavior, mood, and affect are within normal limits. 11:57 Musculoskeletal/extremity: DVT Exam: No signs of deep vein thrombosis. no pain, no swelling, no tenderness, negative Homans' sign noted on exam, no appreciated bluish discoloration, no erythema, no increased warmth. 13:49 Cardiovascular: Rate: normal, Rhythm: regular, Pulses: no pulse deficits are melissa appreciated, Heart sounds: normal, normal S1and S2, no S3 or S4, no murmur, no rub, no gallop, Edema: is not appreciated, JVD: is not appreciated. Vital Signs: 11:45 BP 182 / 81; Pulse 98; Resp 16 S; Temp 97.9(O); Pulse Ox 100% on R/A; ia1 13:37 BP 144 / 97; Pulse 94; Resp 16 S; Pulse Ox 100% on R/A; jl7 14:21 BP 140 / 88; Pulse 90; Resp 16 S; Pulse Ox 100% on R/A; jl7 MDM: 11:41 Patient medically screened. [facility] 11:57 Data reviewed: vital signs, nurses notes, lab test result(s), EKG, radiologic studies, melissa plain films. 11:54 Order name: CBC with Diff [facility] 11:54 Order name: Comprehensive Metabolic Panel; Complete Time: 13:49 [facility] 11:54 Order name: EKG; Complete Time: 11:55 [facility] 11:54 Order name: Chest Single View XRAY; Complete Time: 13:13 [facility] 14:02 Order name: CBC Smear Scan ED[facility] 11:54 Order name: EKG - Nurse/Tech; Complete Time: 14:13 [facility] 12:38 Order name: Labs - recollect needed: cbc recollect; Complete Time: 13:35 12:45 Order name: Labs - recollect needed: chemistry; Complete Time: 13:35 eb Administered Medications: 12:27 Drug: Lisinopril 10 mg Route: PO; jl7 13:30 Follow up: Response: No adverse reaction; Blood pressure is lowered [facility] Disposition: 07/09/19 13:50 Discharged to Home. Impression: Essential (primary) hypertension, Type 2 diabetes mellitus. - Condition is Stable. - Discharge Instructions: Type 2 Diabetes Mellitus, Diagnosis, Adult, Hypertension, Hypertension, Ywvm-[id number], How to Take Your Blood Pressure, Tqnc-bc-Qabo, Aspirin and Your Heart, Type 2 Diabetes Mellitus, Diagnosis, Adult, Cudg-mz-Jrvk, Managing Your Hypertension. - Prescriptions for Lisinopril 10 mg Oral Tablet - take 1 tablet by ORAL route once daily; 20 tablet. - Medication Reconciliation Form, Thank You Letter, Antibiotic Education, Prescription Opioid Use, Work release form form. - Follow up: Private Physician; When: 2 - 3 days; Reason: Recheck today's complaints, Continuance of care, Re-evaluation by your physician. Follow up: Dmitry Saavedra; When: 2 - 3 days; Reason: Recheck today's complaints, Re-evaluation by your physician. - Problem is new. - Symptoms have improved. Signatures: Dispatcher [employer] EDDaniel Georges MD MD cha Williams, Irene, RN RN iw Leal, Jahala, RN RN jl7 Yasmine Clement Ivonne ia1 Corrections: (The following items were deleted from the chart) 12:27 11:55 Urine Test [place]. [place] [id number] 12:28 11:55 Urine Dipstick-Ancillary ordered. melissa [facility] 14:23 13:50 07/09/2019 13:50 Discharged to Home. Impression: Essential (primary) [facility] hypertension; Type 2 diabetes mellitus. Condition is Stable. Discharge Instructions: Hypertension, Hypertension, Ktwr-bs-[id number], How to Take Your Blood Pressure, Hwam-bc-Pdmx, Aspirin and Your Heart, Managing Your Hypertension. Prescriptions for Lisinopril 10 mg Oral Tablet - take 1 tablet by ORAL route once daily; 20 tablet. and Forms are Medication Reconciliation Form, Thank You Letter, Antibiotic Education, Prescription Opioid Use. Follow up: Private Physician; When: 2 - 3 days; Reason: Recheck today's complaints, Continuance of care, Re-evaluation by your physician. Follow up: Dmitry Saavedra; When: 2 - 3 days; Reason: Recheck today's complaints, Re-evaluation by your physician. Problem is new. Symptoms have improved. melissa
--- NOTE | 2019-07-09 13:51 | ER ---
Nurse's Notes [facility] Name: Pretty Wilson Age: 34 yrs Sex: Female : 1985 Arrival Date: 07/09/2019 Time: 11:26 Bed 6 Private MD: Diagnosis: Essential (primary) hypertension;Type 2 diabetes mellitus Presentation: 11:45 Chief complaint: Patient states: Out of BP meds , x2 days intermittent palpitations. ia1 11:45 Coronavirus screen: The patient has NOT traveled to [place] in the past 14 days. Proceed ia1 with normal triage procedures. Ebola Screen: No symptoms or risks identified at this time. Initial Sepsis Screen: Does the patient meet any 2 criteria? No. Patient's initial sepsis screen is negative. Does the patient have a suspected source of infection? No. Patient's initial sepsis screen is negative. Risk Assessment: Do you want to hurt yourself or someone else? Patient reports no desire to harm self or others. 11:45 Method Of Arrival: Ambulatory ia1 11:45 Acuity: MELYSSA 3 jl7 12:00 Onset of symptoms was July 07, 2019. 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 - Social history:: Smoking status: Patient reports the use of cigarette tobacco products, smokes one pack cigarettes per day. - Family history:: not pertinent. Screenin:45 Abuse screen: Denies threats or abuse. Denies injuries from another. Nutritional jl7 screening: No deficits noted. Tuberculosis screening: No symptoms or risk factors identified. Fall Risk None identified. Assessment: 11:45 General: Appears in no apparent distress. uncomfortable, Behavior is calm, cooperative, jl7 appropriate for age. Pain: Denies pain. Neuro: Level of Consciousness is awake, alert, obeys commands, Oriented to person, place, time, situation. Cardiovascular: Patient's skin is warm and dry. Respiratory: Airway is patent Respiratory effort is even, unlabored, Respiratory pattern is regular, symmetrical. Derm: Skin is pink, warm \T\ dry. 13:00 Reassessment: Patient appears in no apparent distress at this time. No changes from jl7 previously documented assessment. Patient and/or family updated on plan of care and expected duration. Pain level reassessed. Patient is alert, oriented x 3, equal unlabored respirations, skin warm/dry/pink. Vital Signs: 11:45 BP 182 / 81; Pulse 98; Resp 16 S; Temp 97.9(O); Pulse Ox 100% on R/A; ia1 13:37 BP 144 / 97; Pulse 94; Resp 16 S; Pulse Ox 100% on R/A; jl7 14:21 BP 140 / 88; Pulse 90; Resp 16 S; Pulse Ox 100% on R/A; jl7 ED Course: 11:26 Patient arrived in ED. mr 11:34 Desean Cruz RN is Primary Nurse. jl7 11:41 Daniel Sánchez MD is Attending Physician. melissa 11:45 Patient has correct armband on for positive identification. Placed in gown. Bed in low jl7 position. Call light in reach. Side rails up X 1. 11:45 Initial lab(s) drawn, by me, sent to lab. Missed attempt(s): 22 gauge in left forearm. jl7 Bleeding controlled, band aid applied, catheter tip intact. 11:57 Triage completed. ia1 12:11 Chest Single View XRAY In Process Unspecified. EDMS 12:28 Arm band placed on right wrist. jl7 13:50 Dmitry Saavedra MD is Referral Physician. melissa 14:21 No provider procedures requiring assistance completed. Patient did not have IV access jl7 during this emergency room visit. Administered Medications: 12:27 Drug: Lisinopril 10 mg Route: PO; jl7 13:30 Follow up: Response: No adverse reaction; Blood pressure is lowered jl7 Outcome: 13:50 Discharge ordered by . melissa 14:21 Attestation : No documentation by student nurse for this pt. jl7 14:21 Discharged to home ambulatory. 14:21 Condition: good 14:21 Discharge instructions given to patient, Instructed on discharge instructions, follow up and referral plans. medication usage, Demonstrated understanding of instructions, follow-up care, medications, Prescriptions given X 1. 14:23 Patient left the ED. jl7 Signatures: Dispatcher [employer] EDDaniel Georges MD MD cha Rivera, Desean Becerril RN RN jl7 Ita Kilpatrick ia1 Corrections: (The following items were deleted from the chart) 13:36 11:45 Acuity: MELYSSA 3 ia1 jlYadiel
[2019-07-09 14:02] LABS: Blood Morphology Comment NOTED (NOT SEEN); Hypochromasia 1+; Platelet Estimate ADEQ; White Blood Cell Scan OK
[2019-07-09 14:45] VITALS: TEMP 97.9; O2SAT 100
[2019-07-09 14:48] VITALS: BP 140/88
--- NOTE | 2019-07-11 15:39 | EKG ---
Test Date: 2019-07-09 Test Time: 13:45:56 Bank Analyst: MACI MEASUREMENT RESULTS: Intervals: Rate: 84 PA: 134 QRSD: 88 QT: 400 QTc: 472 Casey: P: 60 PA: 134 QRS: 64 T: 51 INTERPRETIVE STATEMENTS: Normal sinus rhythm Right atrial enlargement Borderline ECG Compared to ECG 08/30/2018 10:50:07 Sinus tachycardia no longer present Electronically Signed On 07-11-19 15:38:11 RN PARALEGAL by Norm Boles
== END 2019-07-09 14:23 | disposition home or self-care (01) ==
LOC: ER 11:21
DX: I10 Essential (primary) hypertension (principal); E11.9 Type 2 diabetes mellitus without complications
CPT/HCPCS: 36415; 71045; 80053; 85025; 93005; 99284

== ENCOUNTER 2019-11-27 11:16 | Emergency (ER) | payer SELFPAY ==
--- OUTSIDE RECORDS SUMMARY | 2019-11-27 11:19 | XMS REPORT | Continuity of Care Document ---
:1985 Author Organization [facility] Address [address] [place] [address] Dr. Robertson [address] [place] [id number] Care Team Providers Name Role Phone Unavailable Unavailable Unavailable Problems Condition Condition Condition Status Onset Resolution Last Treating Co mments Source Name Details Category Date Date Treatment Clinician Date Psoriasis Psoriasis Problem [facility] Tobacco Tobacco Problem [facility] Apnea Apnea Problem [facility] Snoring Snoring Problem [facility] BMI 70 and BMI 70 and Problem Active [facility] over, over, [facility] adult adult [facility] Abnormal Abnormal Problem Active [facility] heart heart [facility] rhythm rhythm [facility] Morbid Morbid Problem Active [facility] obesity obesity [facility] Circulatio Circulatio Problem Active [facility] n problem n problem [facility] Anemia, Anemia, Problem Active [facility] unspecifie unspecifie Aida kes - d type d type [facility] Uncontroll Uncontroll Problem Active [facility] ed type 2 ed type 2 [facility] - diabetes diabetes Memori a mellitus mellitus l with with [facility] hyperglyce hyperglyce en t [facility] Low TSH Low TSH Problem Active [facility] level level [facility] Heart Heart Problem Active [facility] disease disease [facility] Peripheral Peripheral Problem Active [facility] edema edema [facility] Memory Memory Problem Active [facility] problem problem [facility] Hypertensi Hypertensi Problem Active [facility] on, on, [facility] - unspecifie unspecifie Me moria d type d type l [facility] Congestive Congestive Problem Active [facility] heart heart [facility] - failure, failure, Memori a unspecifie unspecifie l d HF d HF Outpati chronicity chronicity en t , , Clinics unspecifie unspecifie d heart d heart failure failure type type Allergies, Adverse Reactions, Alerts Allergy Allergy Status Severity Reaction(s) Onset Inactive Treating Comm ents Source Name Type Date Date Clinician Ibuprofe Adverse Active swelling of [facility] Reaction lips [facility] Medications Ordered Filled Start Stop Current Ordering Indication Dosage Frequency Signature Comments Components Source Medication Medication Date Date Medication? Clinician (SIG) Name Name Clobetasol Clobetasol 2019- No Orin as [facility] Propionate Propionate 3-16 -15 Millender directed [facility] 00:[facility]: 00:00 [facility] 00 :00 l [facility] ent Clinics Clobetasol Clobetasol 2019- No Orin [address] [facility] Propionate Propionate 3-16 -15 Millender applicatio [facility] - 00:00: 00:00 n to [facility]oria 00 :00 affected l areas; Outpati avoid ent face, Clinics groin, or axillae Lisinopril Lisinopril Yes Orin [address] [facility]ender [facility] MetFORMIN MetFORMIN Yes Orin [address] [address] HCl ER HCl ER Millender [facility] (MOD) (MOD) [facility] Metoprolol Metoprolol Yes Orin [address] [facility] Succinate Succinate Millender [facility] Symbicort Symbicort Yes Orin [address] [facility] Xopenex HFA Xopenex HFA Yes Orin [address] [facility] [address] Millender needed [facility] Furosemide Furosemide Yes Orin [address] [facility] Millender as needed [facility] for [facility] swelling l Outpati ent Clinics ProAir HFA ProAir HFA Yes Orin [address] Millender [facility] Procedures This patient has no known procedures. Encounters Start End Encounter Admission Attending Care Care Encounter Source Date/Time Date/Time Type Type Clinicians Facility Department ID 2019-08-04 2019-08-04 [facility] [id number] [facility] [address] 14:[facility]00 14:56[facility]00 [facility] 2019-07-25 2019-07-25 [facility] [id number] [address] 11:00[facility]00 11:00:00 [facility] 2019-07-20 2019-07-20 [facility] [id number] 13:53:00 13:53:00 [facility] 2018-09-17 2018-09-17 [facility] [id number] [address] 08:05:00 08:05:00 [facility] 2018-09-03 2018-09-03 [facility] [id number] [facility] 14:00[facility]00 14:00:00 [facility] Results This patient has no known results.
--- NOTE | 2019-11-27 12:23 | RAD REPORT ---
EXAM DESCRIPTION: US - Abdomen Exam Limited - 11/27/2019 12:07 pm CLINICAL HISTORY: evaluate abscess to right lateral abd Pain and swelling COMPARISON: No comparisons FINDINGS: Complex cystic collection is present along the area of interest measuring 3.4 x 1.5 cm and just beneath the skin surface, likely representing a subcutaneous abscess.
[2019-11-27] MEDS ORDERED: LIDOCAINE 1% MPF 5 ML VIAL ONE (12:48)
[2019-11-27] MEDS ORDERED: SMZ./TMP. 800/160 MG TABLET ONE (12:49)
[2019-11-27] MEDS ORDERED: HYDROCODONE/APAP 5/325 MG TAB ONE (12:56)
--- NOTE | 2019-11-27 13:50 | EDPHYS ---
Physician Documentation [facility] Name: Pretty Wilson Age: 34 yrs Sex: Female : 1985 Arrival Date: 11/27/2019 Time: 11:21 Bed 18 Private MD: ED Physician Daniel Sánchez HPI: 11/26 12:38 This 34 yrs old Female presents to ER via Ambulatory with complaints of kb Abscess. 13:45 the patient presents with a swollen area of the posterior aspect of right lateral kb abdomen. Description: erythematous, swollen. Onset: The symptoms/episode began/occurred 9 day(s) ago. Possible cause(s): unknown. Associated signs and symptoms: Pertinent positives: erythema, swelling, Pertinent negatives: discharge, drainage, foreign body sensation, fever, headache, nausea, shortness of breath, vomiting. Modifying factors: the symptoms are alleviated by nothing, the symptoms are aggravated by nothing. Severity of symptoms: At their worst the symptoms were moderate, in the emergency department the symptoms are unchanged. The patient has not experienced similar symptoms in the past. The patient has not recently seen a physician. Pt reports reddened area to right lateral abdomen for 9 days. . Historical: - Allergies: 11:41 Ibuprofen; ss - PMHx: 11:41 CHF; Diabetes - NIDDM; frequent bronchitis; Hypertension; psoriasis; ss - PSHx: 11:41 ; Tubal ligation; ss - Immunization history:: Adult Immunizations up to date. - Social history:: Smoking status: Patient denies any tobacco usage or history of. ROS: 13:45 Constitutional: Negative for fever, chills, and weight loss, Cardiovascular: Negative kb for chest pain, palpitations, and edema, Respiratory: Negative for shortness of breath, cough, wheezing, and pleuritic chest pain, Abdomen/GI: Negative for abdominal pain, nausea, vomiting, diarrhea, and constipation, MS/Extremity: Negative for injury and deformity, Neuro: Negative for headache, weakness, numbness, tingling, and seizure. 13:45 Skin: Positive for abscess, of the posterior aspect of right lateral abdomen. Exam: 13:45 Constitutional: This is a well developed, well nourished patient who is awake, alert, kb and in no acute distress. Head/Face: Normocephalic, atraumatic. Chest/axilla: Normal chest wall appearance and motion. Nontender with no deformity. No lesions are appreciated. Cardiovascular: Regular rate and rhythm with a normal S1 and S2. No gallops, murmurs, or rubs. Normal PMI, no JVD. No pulse deficits. Respiratory: Lungs have equal breath sounds bilaterally, clear to auscultation and percussion. No rales, rhonchi or wheezes noted. No increased work of breathing, no retractions or nasal flaring. Abdomen/GI: Soft, non-tender, with normal bowel sounds. No distension or tympany. No guarding or rebound. No evidence of tenderness throughout. Back: No spinal tenderness. No costovertebral tenderness. Full range of motion. MS/ Extremity: Pulses equal, no cyanosis. Neurovascular intact. Full, normal range of motion. Neuro: Awake and alert, GCS 15, oriented to person, place, time, and situation. Cranial nerves II-XII grossly intact. Motor strength 5/5 in all extremities. Sensory grossly intact. Cerebellar exam normal. Normal gait. 13:45 Skin: abscess, that is moderate sized, of the posterior aspect of right lateral abdomen, with fluctuance, with induration. Vital Signs: 11:38 Pulse 105; Resp 18; Temp 98.1(TE); Pulse Ox 99% on R/A; Weight 195.04 kg; Height 5 ft. ss 5 in. (165.10 cm); 11:42 BP 149 / 96; ss 11:38 Body Mass Index 71.56 (195.04 kg, 165.10 cm) ss Procedures: 13:45 I \T\ D: Incision and drainage was performed for an abscess of the right posterior aspect kb of right lateral abdomen Prepped with Betadine, Anesthetized with 1 ml's 1% Lidocaine. Incised with #11 blade. Drained large amount purulent fluid. Packed with pt refused packing. Dressing: sterile 4x4 gauze, the patient tolerated the procedure well. MDM: 11:43 Patient medically screened. kb 13:45 Data reviewed: vital signs, nurses notes. Data interpreted: Pulse oximetry: on room air kb is 99 %. Interpretation: normal. Counseling: I had a detailed discussion with the patient and/or guardian regarding: the historical points, exam findings, and any diagnostic results supporting the discharge/admit diagnosis, the need for outpatient follow up, a family practitioner, to return to the emergency department if symptoms worsen or persist or if there are any questions or concerns that arise at home. 11/26 11:44 Order name: US Abdomen Limited; Complete Time: 12:27 kb 11/26 12:29 Order name: I\T\D Setup; Complete Time: 12:52 kb Administered Medications: 12:52 Drug: Bactrim (160 mg-800 mg (DS) 1 tablet Route: PO; ph 13:33 Follow up: Response: No adverse reaction ss 12:53 Drug: [place] 5 mg-325 mg 1 tabs Route: PO; ph 13:33 Follow up: Response: No adverse reaction ss 13:33 Drug: Lidocaine (1 %) 1 vials {Note: Administered by Jayna Mancuso NP.} Volume: 5 ml; ss Route: Infiltration; 14:00 Follow up: Response: No adverse reaction ph 13:55 Not Given (Other Intervention Used): Zofran (Ondansetron) 4 mg IVP once; over 2 minutes ss 14:00 Drug: Zofran (Ondansetron) 4 mg Route: PO; ph 14:00 Follow up: Response: No adverse reaction ph 14:02 Follow up: Response: Medication administered at discharge. ss Disposition: 18:08 Co-signature as Attending Physician, Daniel Snáchez MD I agree with the assessment and melissa plan of care. Disposition: 11/27/19 13:49 Discharged to Home. Impression: Cutaneous abscess of abdominal wall. - Condition is Stable. - Discharge Instructions: Skin Abscess, Ntod-af-Rafy, Incision and Drainage, Care After. - Prescriptions for Bactrim DS 800- 160 mg Oral Tablet - take 1 tablet by ORAL route every 12 hours for 10 days; 20 tablet. - Medication Reconciliation Form, Thank You Letter, Antibiotic Education, Prescription Opioid Use form. - Follow up: Emergency Department; When: As needed; Reason: Worsening of condition. Follow up: Private Physician; When: 2 - 3 days; Reason: Recheck today's complaints, Continuance of care, Re-evaluation by your physician. Signatures: Dispatcher [employer] EDJayna Tapia, Daniel Luevano MD MD cha Smirch, Shelby, RN RN ss Opal Valentin RN RN ph Corrections: (The following items were deleted from the chart) 14:04 13:49 11/27/2019 13:49 Discharged to Home. Impression: Cutaneous abscess of abdominal ss wall. Condition is Stable. Forms are Medication Reconciliation Form, Thank You Letter, Antibiotic Education, Prescription Opioid Use. Follow up: Emergency Department; When: As needed; Reason: Worsening of condition. Follow up: Private Physician; When: 2 - 3 days; Reason: Recheck today's complaints, Continuance of care, Re-evaluation by your physician. kb
--- NOTE | 2019-11-27 13:50 | ER ---
Nurse's Notes [facility] Name: Pretty Wilson Age: 34 yrs Sex: Female : 1985 Arrival Date: 11/27/2019 Time: 11:21 Bed 18 Private MD: Diagnosis: Cutaneous abscess of abdominal wall Presentation: 11/26 11:38 Chief complaint: Patient states: abscess to R side of abd that began 8-9 days ago. ss Coronavirus screen: Patient denies a cough. Patient denies shortness of breath or difficulty breathing. Patient denies measured and/or subjective temperature greater than 100.4F prior to today's visit. Patient denies travel on a cruise ship or to a country the [facility] currently lists as an affected area. Patient denies contact with known and/or suspected case of COVID-19. Ebola Screen: Patient denies exposure to infectious person. Patient denies travel to an Ebola-affected area in the 21 days before illness onset. Initial Sepsis Screen: Does the patient meet any 2 criteria? No. Patient's initial sepsis screen is negative. Does the patient have a suspected source of infection? No. Patient's initial sepsis screen is negative. Risk Assessment: Do you want to hurt yourself or someone else? Patient reports no desire to harm self or others. Onset of symptoms was November 18, 2019. 11:38 Method Of Arrival: Ambulatory 11:38 Acuity: MELYSSA 4 ss Historical: - Allergies: 11:41 Ibuprofen; ss - PMHx: 11:41 CHF; Diabetes - NIDDM; frequent bronchitis; Hypertension; psoriasis; ss - PSHx: 11:41 ; Tubal ligation; ss - Immunization history:: Adult Immunizations up to date. - Social history:: Smoking status: Patient denies any tobacco usage or history of. Screenin:10 Abuse screen: Denies threats or abuse. Denies injuries from another. Nutritional ss screening: No deficits noted. Tuberculosis screening: Never had TB. Fall Risk None identified. Assessment: 12:10 General: Appears uncomfortable, Behavior is calm, cooperative. General: Appears obese. ss Pain: Complains of pain in posterior aspect of right lateral abdomen Pain currently is 6 out of 10 on a pain scale. Quality of pain is described as tender, Pain began 8-9 days ago Is continuous. Neuro: Level of Consciousness is awake, alert, obeys commands, Oriented to person, place, time, situation. Cardiovascular: Capillary refill < 3 seconds is brisk in bilateral fingers. Respiratory: Respiratory effort is even, unlabored, Respiratory pattern is regular, symmetrical. Derm: Skin is intact, is healthy with good turgor, Skin is pink, warm \T\ dry. normal. Derm: Abscess located on posterior aspect of right lateral abdomen is half dollar sized, has purulent drainage, is red. Musculoskeletal: Circulation, motion, and sensation intact. Range of motion: intact in all extremities. Vital Signs: 11:38 Pulse 105; Resp 18; Temp 98.1(TE); Pulse Ox 99% on R/A; Weight 195.04 kg; Height 5 ft. ss 5 in. (165.10 cm); 11:42 BP 149 / 96; ss 11:38 Body Mass Index 71.56 (195.04 kg, 165.10 cm) ED Course: 11:21 Patient arrived in ED. bp1 11:40 Triage completed. ss 11:41 Arm band placed on left wrist. ss 11:43 Jayna Pineda FNP-C is PHCP. kb 11:43 Daniel Sánchez MD is Attending Physician. kb 12:06 Ultrasound completed. Patient tolerated well. Note: pt ambulated to/from us no issues. sg3 12:07 US Abdomen Limited In Process Unspecified. EDMS 12:10 Jennifer Rausch, THIERRY is Primary Nurse. ss 12:10 Patient has correct armband on for positive identification. Bed in low position. Call light in reach. 14:03 Assist provider with I \T\ D: of an abscess on right abd Performed by Jayna HANKINS Patient tolerated well. Patient did not have IV access during this emergency room visit. Administered Medications: 12:52 Drug: Bactrim (160 mg-800 mg (DS) 1 tablet Route: PO; ph 13:33 Follow up: Response: No adverse reaction ss 12:53 Drug: [place] 5 mg-325 mg 1 tabs Route: PO; ph 13:33 Follow up: Response: No adverse reaction ss 13:33 Drug: Lidocaine (1 %) 1 vials {Note: Administered by Jayna Mancuso NP.} Volume: 5 ml; ss Route: Infiltration; 14:00 Follow up: Response: No adverse reaction ph 13:55 Not Given (Other Intervention Used): Zofran (Ondansetron) 4 mg IVP once; over 2 minutes ss 14:00 Drug: Zofran (Ondansetron) 4 mg Route: PO; ph 14:00 Follow up: Response: No adverse reaction ph 14:02 Follow up: Response: Medication administered at discharge. Outcome: 13:49 Discharge ordered by . kb 14:03 Discharged to home ambulatory. ss 14:03 Condition: good 14:03 Demonstrated understanding of instructions, follow-up care, medications, wound care. 14:04 Patient left the ED. Signatures: Dispatcher [employer] EDMS Jayna Pineda, SMALL ENGINE TRAINER-C SMALL ENGINE TRAINER-Jennifer Shearer RN RN Opal Valentin RN RN [facility] Hospital[facility], Anabel sg3 Karen Tellez [facility]
[2019-11-27] MEDS ORDERED: ONDANSETRON 4 MG (ODT) TAB ONE (14:06)
[2019-11-27 14:08] VITALS: TEMP 98.1; O2SAT 99
[2019-11-27 14:12] VITALS: BP 149/96
== END 2019-11-27 14:04 | disposition home or self-care (01) ==
LOC: ER 11:16
PROC: 0J980ZZ Drainage of Abdomen Subcutaneous Tissue and Fascia, Open Approach (ICD-10-PCS; principal; 2019-11-27)
DX: L02.211 Cutaneous abscess of abdominal wall (principal); I10 Essential (primary) hypertension; Z88.6 Allergy status to analgesic agent
CPT/HCPCS: 76705; 99283

== ENCOUNTER 2021-05-03 23:14 | Observation (INO) | payer SELFPAY ==
--- OUTSIDE RECORDS SUMMARY | 2021-05-03 23:16 | XMS REPORT | Continuity of Care Document ---
:[address] [facility] t Address [address] [place] [address] Care Team Providers Name Role Phone Unavailable Unavailable Unavailable Problems This patient has no known problems. Allergies, Adverse Reactions, Alerts Allergy Allergy Status Severity Reaction(s) Onset Inactive Treating Comm ents Source Name Type Date Date Clinician Ibuprofe Adverse Active swelling of [facility] lips [facility] Medications Ordered Filled Start Stop Current Ordering Indication Dosage Frequency Signature Comments Components Source Medication Medication Date Date Medication? Clinician (SIG) Name Name Metformin Metformin Yes Orin [address] [facility] HCl HCl 8-31 [facility] with a [facility] Lisinopril Lisinopril Yes Orin 1 tablet [facility] [...] Date/Time Type Type Clinicians Facility Department ID 2021-02-21 2021-02-21 Out[facility] [id number] [facility] 2021-02-11 2021-02-11 [facility] [id number] [facility] 2021 2021 [facility] [id number] [facility] 2020-11-29 2020-11-29 [facility] [id number] [facility] 2020-08-30 2020-08-30 [facility] [id number] [facility] 2020-06-06 2020-06-06 [facility] [id number] [facility] 2020-01-09 2020-01-09 [facility] [id number] [facility] 11[facility]40[facility] 11:40:00 [facility] Outpat[facility] Clin[facility] 2020-01-09 2020-01-09 [facility] [id number] [facility] 2019-08-04 2019-08-04 [facility] [id number] [facility] 14:56[facility]00 14:56:00 [facility] Medicine [facility] Medicine Outpat[facility] Clinics 2019-07-25 2019-07-25 [facility] [id number] 11:00[facility]00 11:00:00 [facility] Medicine [facility] Medicine Outpat[facility] Clinics 2019-07-20 2019-07-20 [facility] [id number] 13:53:00 13:53:00 [facility] ent Clinics 2018-09-17 2018-09-17 Outpatient Rhonda Ellist [id number] [address] 08:05:00 08:05:00 [facility] ent [facility] 2018-09-03 2018-09-03 Outpatient Rhonda Jiménez [id number] 14:00:00 14:00:00 [facility] ent Clinics Results This patient has no known results.
[2021-05-04 01:39] LABS: Urine Blood Trace-intact (Negative); Urine Glucose 2+ (Negative); Urine Protein Negative (Negative); Urine Specific Gravity 1.025 (1.005-1.030)
[2021-05-04 01:47] LABS: Absolute Lymphocytes (CBC) 1.9 K/uL (0.7-4.9); Hematocrit 32.8 % (36.0-45.0); Lymphocytes % 19.5 % (15.3-44.8); MPV 8.7 fL (7.6-11.3); RBC Red Blood Cell Count 5.14 M/uL (3.86-4.86)
[2021-05-04 01:49] LABS: Urine Specific Gravity/Preg 1.025 (1.005-1.030)
--- NOTE | 2021-05-04 01:54 | ER ---
Nurse's Notes [facility] Name: Pretty Wilson Age: 36 yrs Sex: Female : 1985 Arrival Date: 05/03/2021 Time: 23:20 Bed 6 Private MD: Diagnosis: Cutaneous abscess of other sites-right breast;Cellulitis of other sites-right breast Presentation: 05/03 23:46 Chief complaint: Patient states: " This really nasty thing." Patient exposes sore on tw5 right breast. Coronavirus screen: Vaccine status: Patient reports being unvaccinated. Ebola Screen: Patient negative for fever greater than or equal to 101.5 degrees Fahrenheit, and additional compatible Ebola Virus Disease symptoms Patient denies exposure to infectious person. Patient denies travel to an Ebola-affected area in the 21 days before illness onset. Initial Sepsis Screen: Does the patient meet any 2 criteria? HR > 90 bpm. Does the patient have a suspected source of infection? Yes: Skin breakdown/wound. Risk Assessment: Do you want to hurt yourself or someone else? Patient reports no desire to harm self or others. Onset of symptoms is unknown. 23:46 Method Of Arrival: Wheelchair tw5 23:46 Acuity: MELYSSA 3 tw5 Triage Assessment: 23:48 General: Appears obese, unkempt, Behavior is calm, cooperative, appropriate for age. tw5 Pain: Complains of pain in right breast Pain currently is 6 out of 10 on a pain scale. 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 - Social history:: Smoking status: Patient reports the use of cigarette tobacco products, smokes one pack cigarettes per day. Screenin:50 Abuse screen: Denies threats or abuse. Denies injuries from another. Nutritional tw5 screening: No deficits noted. Tuberculosis screening: No symptoms or risk factors identified. Fall Risk No fall in past 12 months (0 pts). Secondary diagnosis (15 points) Vital Signs: 23:45 BP 113 / 67; Pulse 104; Resp 18; Temp 98.7; Pulse Ox 99% on R/A; Weight 183.7 kg; tw5 Height 5 ft. 5 in. (165.10 cm); Pain 6/10; 23:45 Body Mass Index 67.39 (183.70 kg, 165.10 cm) tw5 ED Course: 23:20 Patient arrived in ED. bp1 23:48 Triage completed. tw5 23:48 Arm band placed on left wrist. tw5 05/04 01:11 Daniel Bermudez PA is PHCP. cp 01:11 Daniel Sánchez MD is Attending Physician. cp 01:51 Garret Rhodes MD is Hospitalizing Provider. cp 02:05 Mando Cornelius, THIERRY is Primary Nurse. mr2 06:49 Primary Nurse role handed off by Mando Cornelius, RN cs9 Administered Medications: 02:20 Drug: morphine 4 mg Route: IVP; Site: left antecubital; mr2 02:30 Drug: vancoMYCIN 1 grams Route: IVPB; Infused Over: 2 hrs; Site: left antecubital; mr2 02:40 Drug: Zosyn (piperacillin-tazobactam) 4.5 grams Route: IVPB; Infused Over: 60 mins; mr2 Site: left antecubital; Outcome: 01:54 Decision to Hospitalize by Provider. cp 18:48 Patient left the ED. vg1 Signatures: Daniel Bermudez PA PA Madelyn Garrido RN RN vg1 Karen Tellez [facility] Mando Cornelius, THIERRY RN mr2 Tamy Ward tw5 Juliana [place] cs9
--- NOTE | 2021-05-04 01:54 | EDPHYS ---
Physician Documentation [facility] Name: Pretty Wilson Age: 36 yrs Sex: Female : 1985 Arrival Date: 05/03/2021 Time: 23:20 Bed 6 Private MD: ISAMAR Physician Daniel Sánchez HPI: 05/04 01:00 This 36 yrs old Female presents to ER via Wheelchair with complaints of Boil, Wound cp Infection. 01:00 The patient presents with an abscess of the right breast, The patient presents with cp cellulitis of the right breast. Description: draining, erythematous, warm. Onset: The symptoms/episode began/occurred 1 week(s) ago. Associated signs and symptoms: Pertinent positives: drainage, erythema, Pertinent negatives: fever. 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 - Social history:: Smoking status: Patient reports the use of cigarette tobacco products, smokes one pack cigarettes per day. ROS: 05/04 01:05 Constitutional: Negative for body aches, chills, fever, poor PO intake. cp 01:05 Eyes: Negative for injury, pain, redness, and discharge. cp 01:05 ENT: Negative for ear pain, sore throat, difficulty swallowing, difficulty handling secretions. 01:05 Cardiovascular: Negative for chest pain. 01:05 Respiratory: Negative for cough, shortness of breath, wheezing. 01:05 Abdomen/GI: Negative for abdominal pain, nausea, vomiting, and diarrhea. 01:05 Skin: Positive for abscess, cellulitis, of the right breast. 01:05 Neuro: Negative for altered mental status, headache, weakness. 01:05 All other systems are negative. Exam: 01:10 Constitutional: The patient appears in no acute distress, alert, awake, cp non-diaphoretic, non-toxic, well developed, well nourished, obese. 01:10 Head/Face: Normocephalic, atraumatic. cp 01:10 Eyes: Periorbital structures: appear normal, Conjunctiva: normal, no exudate, no injection, Sclera: no appreciated abnormality, Lids and lashes: appear normal, bilaterally. 01:10 ENT: External ear(s): are unremarkable, Nose: is normal, Mouth: Lips: moist, Oral mucosa: moist, Posterior pharynx: Airway: no evidence of obstruction, patent. 01:10 Chest/axilla: Breasts: abscess, that is moderate-sized, with discharge, with warmth, cellulitis, that is moderate, of the right breast. 01:10 Cardiovascular: Rate: tachycardic, Rhythm: regular. 01:10 Respiratory: the patient does not display signs of respiratory distress, Respirations: normal, no use of accessory muscles, no retractions, labored breathing, is not present, Breath sounds: are clear throughout, no decreased breath sounds. 01:10 Neuro: Orientation: to person, place \\T\\ time. Mentation: is normal. Vital Signs: 05/03 23:45 BP 113 / 67; Pulse 104; Resp 18; Temp 98.7; Pulse Ox 99% on R/A; Weight 183.7 kg; tw5 Height 5 ft. 5 in. (165.10 cm); Pain 6/10; 23:45 Body Mass Index 67.39 (183.70 kg, 165.10 cm) tw5 MDM: 05/04 01:18 Patient medically screened. [facility] 01:45 Differential diagnosis: abscess, cellulitis, sepsis. 02:00 Physician consultation: Chandra Rivera MD was called at 01:50, was contacted at 01:50, regarding consult, patient's condition, and will see patient later today, would like admission per Dr. Casey Ray. 02:15 Data reviewed: vital signs, nurses notes, lab test result(s), I have discussed the patient's presentation/case with the attending Emergency Department Physician;. 05/04 01:10 Order name: Basic Metabolic Panel; Complete Time: 02:11 tw5 05/04 01:10 Order name: CBC with Diff; Complete Time: 02:06 tw5 05/04 01:51 Interpretation: Normal except: RBC 5.14; HGB 10.0; HCT 32.8; MCV 63.9; MCH 19.4; MCHC cp 30.4; RDW 19.6. 05/04 01:10 Order name: Hepatic Function; Complete Time: 02:11 [email or web address] 05/04 01:10 Order name: Lipase; Complete Time: 02:11 tw 05/04 01:18 Order name: Wound Culture [facility] [[email or web address] 05/04 01:19 Order name: Wound Culture 05/04 01:19 Order name: Lactate; Complete Time: 17:09 05/04 01:19 Order name: Procalcitonin; Complete Time: 17:09 05/04 01:19 Order name: Blood Culture Adult (2) 05/04 01:20 Order name: COVID-19 SARS RT PCR (Document "Date of Onset" if Symptomatic); Complete la Time: 17:05/04 01:39 Order name: Urine Dipstick-Ancillary; Complete Time: 01:47 [facility] 05/04 01:51 Interpretation: Normal except: UGLUC 2+; UKET Trace; UBLD Trace-intact. 05/04 01:40 Order name: Urine Dipstick-Ancillary [facility] 05/04 01:45 Order name: Urine --Ancillary (enter results); Complete Time: 01:50 [facility] 05/04 00:56 Order name: Urine Dipstick-Ancillary (obtain specimen) [facility] [[email or web address] 05/04 01:10 Order name: IV Saline Lock [facility] [[email or web address] 05/04 01:10 Order name: Labs collected and sent [facility] [[email or web address] 05/04 01:19 Order name: Urine Test (obtain specimen) 05/04 01:48 Order name: CBC Smear Scan; Complete Time: 02:06 EDPR 05/04 01:54 Order name: NPO 05/04 02:23 Order name: BNP; Complete Time: 17:09 la 05/04 02:23 Order name: Troponin (emerg Dept Use Only); Complete Time: 17:09 la1 05/04 02:23 Order name: Chest Single View XRAY [facility] 05/04 07:13 Order name: RAD; Complete Time: 17:09 EDMS 05/04 09:35 Order name: Glucose, Ancillary Testing; Complete Time: 17:09 EDPR 05/04 13:02 Order name: Glucose, Ancillary Testing; Complete Time: 17:09 EDMS 05/04 17:39 Order name: Glucose, Ancillary Testing EDMS Administered Medications: 02:20 Drug: morphine 4 mg Route: IVP; Site: left antecubital; mr2 02:30 Drug: vancoMYCIN 1 grams Route: IVPB; Infused Over: 2 hrs; Site: left antecubital; mr2 02:40 Drug: Zosyn (piperacillin-tazobactam) 4.5 grams Route: IVPB; Infused Over: 60 mins; mr2 Site: left antecubital; Disposition Summary: 05/04/21 01:54 Hospitalization Ordered Hospitalization Status: Observation cp Provider: Garret Rhodes cp Condition: Stable cp Problem: new cp Symptoms: have improved cp Bed/Room Type: Standard cp Location: [facility] ER HOLD(05/04/21 18:08) iw Room Assignment: ERHOLD-(05/04/21 18:08) iw Diagnosis - Cutaneous abscess of other sites - right breast cp - Cellulitis of other sites - right breast cp Forms: - Medication Reconciliation Form cp - SBAR form cp Addendum: 05/07/2021 12:46 Co-signature as Attending Physician, Daniel Sánchez MD I agree with the assessment and c mata plan of care. Signatures: Dispatcher [employer] EDMS Marilee Castaneda Martha RN Daniel Womack MD MD cha Williams, Irene, RN RN iw Casey Ray, [employer] Daniel Bermudez PA PA cp Heriberto Go MD MD pa2 Mando Cornelius RN RN mr2 Tamy Ward tw5 Corrections: (The following items were deleted from the chart) 05/04 01:40 01:19 Wound Culture ordered. EDMS EDMS 02:35 01:54 Telemetry/MedSurg (observation) cp mw 02:35 01:54 cp mw 14:51 02:35 [facility] ER HOLD mw bd 14:51 02:35 ERHOLD- mw bd 18:08 14:51 Telemetry/MedSurg (observation) bd iw 18:08 14:51 212 bd iw
[2021-05-04 02:05] LABS: Anisocytosis 1+; Blood Morphology Comment NOTED (NOT SEEN); Elliptocytes 1+; Hypochromasia 2+; Platelet Estimate ADEQ; White Blood Cell Scan OK (OK)
[2021-05-04 02:09] LABS: ALT/SGPT 18 U/L (12-78); AST/SGOT 5 U/L (15-37); Alkaline Phosphatase 94 U/L (45-117); BUN Blood Urea Nitrogen 10 mg/dL (7-18); Bicarbonate 28 mmol/L (21-32); Bilirubin Direct 0.1 mg/dL (0-0.2); Bilirubin Total 0.6 mg/dL (0.2-1.0); Glucose Level 272 mg/dL (74-106); Lipase 170 U/L (73-393); Potassium 3.7 mmol/L (3.5-5.1); Protein, Total 7.4 g/dL (6.4-8.2); Sodium Level 138 mmol/L (136-145)
[2021-05-04] MEDS ORDERED: VANCOMYCIN 1 GM/VIAL ONE ×2 (02:09→10:47)
[2021-05-04] MEDS ORDERED: MORPHINE 4 MG/ML SYR ONE (02:09)
[2021-05-04] MEDS ORDERED: PIPERACIL/TAZO 3.375 GM VIAL IV ONE ×3 (02:09→16:12)
[2021-05-04] MEDS ORDERED: NA CHLORIDE 0.9% 0 ML ONE (02:09)
[2021-05-04] MEDS ORDERED: NA CHLORIDE 0.9% 100 ML ONE ×2 (02:11→10:47)
--- NOTE | 2021-05-04 02:31 | P.HP ---
Certification for Inpatient Patient admitted to: Inpatient With expected LOS: >2 Midnights Patient will require the following post-hospital care: None Practitioner: I am a practitioner with admitting privileges, knowledge of patient current condition, hospital course, and medical plan of care. Services: Services provided to patient in accordance with Admission requirements found in Title 42 Section 412.3 of the Code of Federal Regulations Patient History Date of Service: 05/04/21 Reason for admission: Breast abscess History of Present Illness: 36-year-old female with history of CHF, diabetes mellitus type 2, obesity, hypertension presents the emergency department for breast abscess. Patient reports approximate 1 week ago she noticed that a small cystlike structure to the medial aspect of her right breast has been present for many years was becoming inflamed over the course of last 1 week she has developed cellulitis of the right breast in addition to a approximate golf ball sized abscess to the right medial breast. Patient was evaluated in the emergency department labs were significant for white blood cell count 9.7 hemoglobin 10 hematocrit 32.8 glucose 272. Due to large abscess with surrounding cellulitis emergency department provider believes patient would best benefit from surgical incision and drainage in the operating room. General surgery was consulted while patient was in the emergency department recommends admission to the hospital service given patient's comorbidities with consultation for general surgery, IV antibiotics and n.p.o. Allergies ibuprofen Allergy (Verified 09/11/11 18:26) Itching/Hives/Rash Home Medications: Budesonide/Formoterol Fumarate [Symbicort 80-4.5 Mcg Inhaler] 2 puff IH BID #1 hfa.aer.ad 08/31/18 Levalbuterol Tartrate [Xopenex Hfa] 15 gm IH Q4H PRN #1 hfa.aer.ad 08/31/18 Metformin ER [Glucophage ER*] 1,000 mg PO DAILY #30 tab.sa 08/31/18 Metoprolol Succinate [Toprol Xl*] 25 mg PO [id number] #30 tab 08/31/18 lisinopriL [Lisinopril] 5 mg PO DAILY #30 tablet 08/31/18 - Past Medical/Surgical History Diabetic: Yes -: HTN -: frequent Bronchitis -: CHF -: Diabetes mellitus type 2 -: x 3 -: Tubal Psychosocial/ Personal History: Unemployed, lives with family - Family History Father -: Heart disease, Hypertension, Diabetes Mother -: Heart disease, Hypertension, Diabetes, Kidney disease - Social History Smoking Status: Current every day smoker Counseled patient to stop smoking for: less than 10 minutes Smoking therapy provided: No (Patient declined) Alcohol use: No CD- Drugs: No Caffeine use: Yes Place of Residence: Home Review of Systems 10-point ROS is otherwise unremarkable Integumentary: As per HPI Physical Examination - Physical Exam General: Alert, In no apparent distress, Oriented x3 HEENT: Atraumatic, PERRLA, Mucous membr. moist/pink, EOMI, Sclerae nonicteric Neck: Supple, 2+ carotid pulse no bruit, No LAD, Without JVD or thyroid abnormality Respiratory: Clear to auscultation bilaterally, Normal air movement Cardiovascular: Regular rate/rhythm, Normal S1 S2 Gastrointestinal: Normal bowel sounds, No tenderness Musculoskeletal: No tenderness Integumentary: Tenderness/swelling, Erythema, Warmth, Other (Approximate golf ball sized abscess medial aspect of right breast with surrounding cellulitis) Neurological: Normal gait, Normal speech, Normal strength at 5/5 x4 extr, Normal tone, Normal affect Lymphatics: No axilla or inguinal lymphadenopathy - Studies Laboratory Data (last 24 hrs) 05/04/21 01:27: WBC 9.70, Hgb 10.0 L, Hct 32.8 L, Plt Count 258 05/04/21 01:27: Sodium 138, Potassium 3.7, BUN 10, Creatinine 0.61, Glucose 272 H, Total Bilirubin 0.6, AST 5 L, ALT 18, Alkaline Phosphatase 94, Lipase 170 Assessment and Plan - Plan Assessment: Abscess of the right breast with surrounding cellulitis Diabetes mellitus type 2 with hyperglycemianot insulin-dependent Chronic diastolic congestive heart failure Hypertension Tobacco abuse Morbid obesity Plan: Abscess of the right breast with surrounding cellulitis: N.p.o., vancomycin/Zosyn for cellulitis/abscess. General surgery consult in place. As needed pain medications. Diabetes mellitus type 2 with hyperglycemianot insulin-dependent: Every 6 hours Accu-Chek, sliding scale insulin, A1c with morning labs. Chronic diastolic congestive heart failure: Last echocardiogram demonstrated normal ejection fraction, patient does not appear to be overloaded at this time, troponin/BNP/chest x-ray pending given patient likely have surgical intervention. Obtain and continue medications as appropriate Hypertension: Obtain and continue medication Tobacco abuse: Counseled on need for tobacco cessation, offered nicotine patch but patient declined at this time. Morbid obesity: Counseled on lifestyle change. DVT PPX: SCDs at this time given plan for surgical intervention Code status: Full code Discharge Plan: Home Plan to discharge in: 48 Hours - Advance Directives Does patient have a Living Will: No Does patient have a Durable POA for Healthcare: No - Code Status/Comfort Care Code Status Assessed: Yes (Full code) Critical Care: No Time Spent Managing Pts Care (In Minutes): 55
[2021-05-04 02:44] LABS: NT PRO-BNP 47 pg/mL (<125); Troponin (Emerg Dept Use Only) < 0.02 ng/mL (0.0-0.045)
--- NOTE | 2021-05-04 07:12 | RAD REPORT ---
EXAM DESCRIPTION: RAD - Chest Single View - 05/04/2021 2:55 am CLINICAL HISTORY: abscess/pre-op COMPARISON: Chest Single View dated 07/09/2019; Chest Pa And Lat (2 Views) dated 06/27/2019; Chest Pa And Lat (2 Views) dated 08/30/2018; Chest Pa And Lat (2 Views) dated 05/09/2017 FINDINGS: Lines: None. Lungs: No evidence of edema or pneumonia. Pleural: No significant pleural effusions or pneumothorax. Cardiac: The heart size is within normal limits. Bones: No acute fractures. Other: IMPRESSION: No acute cardiopulmonary disease.
[2021-05-04] MEDS ORDERED: DOXYCYCLINE 100 MG CAP PO SCH (09:23)
[2021-05-04] MEDS ORDERED: MORPHINE 2 MG/ML SYR IV PRN (09:23)
[2021-05-04] MEDS: INSULIN -REGULAR HUMAN 50 UNIT/0.5 ML ML SQ SCH ×3 (09:23→16:30)
[2021-05-04] MEDS ORDERED: VANCOMYCIN 1 GM in NA CHLORIDE 0.9% 250 ML IVPB SCH (09:23)
[2021-05-04 10:31] VITALS: BMI 67.3
[2021-05-04] MEDS ORDERED: DOXYCYCLINE 100 MG CAP PO ONE (10:47)
[2021-05-04] MEDS ORDERED: NA CHLORIDE 0.9% 250 ML ONE ×2 (10:48→16:19)
[2021-05-04] MEDS: PIPER TAZO 3.375 GM in NA CHLORIDE 0.9% 100 ML IV SCH ×2 (10:51→16:20)
[2021-05-04] MEDS ORDERED: MORPHINE 2 MG/ML SYR ONE (10:54)
[2021-05-04] MEDS ORDERED: VANCOMYCIN 2 GM in NA CHLORIDE 0.9% 500 ML IVPB SCH (11:00)
[2021-05-04 16:29] VITALS: BP 130/81; TEMP 97.3
--- NOTE | 2021-05-04 17:29 | P.DS ---
Admission Date: 05/04/21 Discharge Date: 05/04/21 Disposition: ROUTINE DISCHARGE Discharge Condition: FAIR Reason for Admission: Breast abscess Consultations: Erika Brief History of Present Illness: Pt aW R sided abscess and mastitis Hospital Course: AGe 36 aw Abscess and mastitis of R breast/ SB DrJovon James PT was DC on on Clinamicin fir 10 days/ Microcutic anemia with normalWBC/ Tx with Vanc and Zosyn and Doxy while in ER/ Labs ordered Vital Signs/Physical Exam: Temp Pulse Resp BP Pulse Ox 97.3 F 90 17 130/81 100 05/04/21 16:00 05/04/21 16:00 05/04/21 16:00 05/04/21 16:00 05/04/21 16:00 Laboratory Data at Discharge: WBC 9.70 K/uL (4.3-10.9) 05/04/21 01:27 Hgb 10.0 g/dL (12.0-15.0) L 05/04/21 01:27 Hct 32.8 % (36.0-45.0) L 05/04/21 01:27 Plt Count 258 K/uL (152-406) 05/04/21 01:27 Sodium 138 mmol/L (136-145) 05/04/21 01:27 Potassium 3.7 mmol/L (3.5-5.1) 05/04/21 01:27 BUN 10 mg/dL (7-18) 05/04/21 01:27 Creatinine 0.61 mg/dL (0.55-1.3) 05/04/21 01:27 Glucose 272 mg/dL (74-106) H 05/04/21 01:27 Total Bilirubin 0.6 mg/dL (0.2-1.0) 05/04/21 01:27 AST 5 U/L (15-37) L 05/04/21 01:27 ALT 18 U/L (12-78) 05/04/21 01:27 Alkaline Phosphatase 94 U/L (45-117) 05/04/21 01:27 Lipase 170 U/L (73-393) 05/04/21 01:27 Home Medications: Metformin ER [Glucophage ER*] 1,000 mg PO DAILY #30 tab.sa 08/31/18 Metoprolol Succinate [Toprol Xl*] 25 mg PO [id number] #30 tab 08/31/18 clindamycin HCL [Clindamycin HCl] 300 mg PO Q6HR 10 Days #30 capsule 05/04/21 lisinopriL [Lisinopril] 10 mg PO DAILY 05/04/21 New Medications: clindamycin HCL [Clindamycin HCl] 300 mg PO Q6HR 10 Days #30 capsule Followup: Unknown,U [Primary Care Provider] -
--- NOTE | 2021-05-04 17:43 | P.CNS ---
Date of Consult: 05/04/21 PC: I was asked to see this 36-year-old female in regards to a abscess on her right breast. HPC: Patient noticed a lump on the medial portion of her right breast a couple of weeks ago. Over the course of the last week or so has had an area of induration redness that is now developed into a multifocal abscess. Has been draining some purulent material that has a foul odor. PSHx: Previous episodes of abscesses with MRSA PMHx: Diabetes, coronary artery disease, cardiac failure Social Hx: States she is allergic to ibuprofen Sys R: No cough, wheeze, shortness of breath. No chest pain or palpitations. Denies any urinary complaints O/E: Wake alert vital signs are stable HEENT: Negative Breast: On the medial aspect of the breast just at the inframammary fold has an area of multifocal abscesses that are draining. The total abscessed area is approximately 2.5 cm in size. There is an area of demarcation approximately the same distance from the central portion where normal breast tissue could be palpated. Chest: Chest movement equal bilaterally Abd: NAD [place]: Negative Data: Normal white cell count [hemoglobin 10] Impression: Patient is area of abscess formation on the inner medial portion of her right breast. Has been on antibiotics in the hospital. Plan: I have discussed this with the patient. We will hold on doing incision and drainage at this time. We will treat with p.o. antibiotics as outpatient. She will see me Thursday in my office. Once this abscess and infected area has resolved, she will get a mammogram. I estimate that to be in about 4 to 6 weeks. At that time we will determine if any further treatment is required. Patient is comfortable with this plan. It is , and we will try and get her prescriptions filled. She will be seeing me on Thursday in my office.
[2021-05-04 19:16] VITALS: O2SAT 99
== END 2021-05-04 18:48 | disposition home or self-care (01) ==
LOC: ER 23:14 → ERHOLD 05-04 02:32 → INTOOBSV 05-04 02:32 → 2ND 05-04 17:47
PROVIDERS: ADMIT Internal Medicine Sleep Medicine; ATTEND Internal Medicine Sleep Medicine
DX: N61.1 Abscess of the breast and nipple (principal); E11.65 Type 2 diabetes mellitus with hyperglycemia; I11.0 Hypertensive heart disease with heart failure; I50.32 Chronic diastolic (congestive) heart failure; I25.10 Atherosclerotic heart disease of native coronary artery without angina pectoris; E66.01 Morbid (severe) obesity due to excess calories; Z68.44 Body mass index [BMI] 60.0-69.9, adult; F17.210 Nicotine dependence, cigarettes, uncomplicated; Z71.6 Tobacco abuse counseling; Z20.822 Contact with and (suspected) exposure to COVID-19; Z86.14 Personal history of Methicillin resistant Staphylococcus aureus infection; Z88.6 Allergy status to analgesic agent; Z98.51 Tubal ligation status; Z82.49 Family history of ischemic heart disease and other diseases of the circulatory system; Z83.3 Family history of diabetes mellitus
CPT/HCPCS: 36415; 71045; 80048; 80076; 81003; 81025; 82947; 83605; 83690; 83880; 84145; 84484; 85025; 87040; 87070; 87205; 96374; 96375; 99282; G0378; J2270; J2543; J3370; J7040; J7050; U0003

== ENCOUNTER 2022-02-03 05:56 | Emergency (ER) | payer SELFPAY ==
--- OUTSIDE RECORDS SUMMARY | 2022-02-03 05:59 | XMS REPORT | Continuity of Care Document ---
:1985 Author Organization [facility] t Address [address] [place] [address] Care Team Providers Name Role Phone Praveena Santana Attending Clinician Unavailable Orin Briscoe Attending Clinician Unavailable Problems This patient has no known problems. Allergies, Adverse Reactions, Alerts Allergy Allergy Status Severity Reaction(s) Onset Inactive Treating Comm ents Source Name Type Date Date Clinician Ibuprofe Adverse Active swelling of Co mmon n Reaction lips [facility] Medications Ordered Filled Start Stop Current Ordering Indication Dosage Frequency Signature Comments Components Source Medication Medication Date Date Medication? Clinician (SIG) Name Name Metformin Metformin Yes Orin 1 tablet Common HCl HCl 8-31 [facility] 00:00: meal - [facility] Lisinopril Lisinopril Yes Orin 1 tablet Common Millender [facility] MetFORMIN MetFORMIN Yes Orin 1 tablet Common HCl ER HCl ER Millender Spirit (MOD) (MOD) [facility] Metoprolol Metoprolol Yes Orin 1 capsule Common Succinate Succinate Millender [facility] Symbicort Symbicort Yes Orin 2 puffs C ommon Millender [facility] Xopenex HFA Xopenex HFA Yes Orin 1 puff as Common Millender needed [facility] Furosemide Furosemide Yes Orin 1 tablet Common Millender as needed Spiri t for - [facility] swelling [facility] ProAir HFA ProAir HFA Yes Orin 2 puffs as Common Millender needed [facility] Procedures This patient has no known procedures. Encounters Start End Encounter Admission Attending Care Care Encounter Source Date/Time Date/Time Type Type Clinicians Facility Department ID 2021-09-09 Outpatient [place], STLMLC STLMLC [id number] Common 11:46:00 Praveena [facility] 2021-06-05 Outpatient [place], STLMLC STLMLC [id number] Common 13:55:56 Praveena [id number] [facility] 2021-06-05 Outpatient [place], STLMLC STLMLC [id number] Common 12:40:15 Praveena [id number] [facility] 2021-06-05 Outpatient STLMLC STLMLC [id number] Common 12:24:00 [id number] [facility] 2021-06-05 Outpatient [place], STLMLC STLMLC [id number] Common 11:42:03 Orin [id number] [facility] 2021-06-05 Outpatient [place], STLMLC STLMLC [id number] Common 11:14:01 Orin [id number] [facility] 2021-05-09 2021-05-09 ambulatory STLMLC STLMLC [id number] Common 00:00:00 00:00:00 [facility] 2021-02-21 2021-02-21 Outpatient STLMLC STLMLC [id number] Common 00:00:00 00:00:00 [facility] 2021-02-11 2021-02-11 Outpatient STLMLC STLMLC [id number] Common 00:00:00 00:00:00 [facility] 2021 2021 Outpatient STLMLC STLMLC [id number] Common 00:00:00 00:00:00 [facility] 2020-11-29 2020-11-29 Outpatient STLMLC STLMLC [id number] Common 00:00:00 00:00:00 [facility] 2020-08-30 2020-08-30 Outpatient STLMLC STLMLC [id number] Common 00:00:00 00:00:00 [facility] 2020-06-06 2020-06-06 Outpatient STLMLC STLMLC [id number] Common 00:00:00 00:00:00 [facility] 2020-01-09 2020-01-09 [id number] Common 11:40:00 11:40:[address] [facility] 2020-01-09 2020-01-09 Outpatient STLMLC STLMLC [id number] Common 00:00:00 00:00:00 [facility] 2019-08-04 2019-08-04 [facility] [id number] Common 14:56:00 14:56:[address] [facility] 2019-07-25 2019-07-25 [facility] [id number] Common 11:00:00 11:00:[address] [facility] 2019-07-20 2019-07-20 [facility] [id number] Common 13:53:00 13:53:[address] [facility] 2018-09-17 2018-09-17 [facility] [id number] Common 08:05:00 08:05:[address] [facility] 2018-09-03 2018-09-03 [facility] [id number] Common 14:00:00 14:00:[address] [facility] Results This patient has no known results.
[2022-02-03] MEDS ORDERED: LIDOCAINE 1% MPF 2 ML AMPULE ONE (06:25)
[2022-02-03] MEDS ORDERED: LORAZEPAM 1 MG TABLET ONE (07:10)
--- NOTE | 2022-02-03 07:45 | ER ---
Nurse's Notes [facility] Name: Pretty Wilson Age: 37 yrs Sex: Female : 1985 Arrival Date: 02/03/2022 Time: 05:59 Bed 5 Private MD: Diagnosis: Foreign body in right ear Presentation: 02/03 06:12 Chief complaint: Patient states: there is a bug in my right ear "I tried to get it out bb with water but it didn't come out". Coronavirus screen: At this time, the client does not indicate any symptoms associated with coronavirus-19. Ebola Screen: No symptoms or risks identified at this time. Initial Sepsis Screen: Does the patient meet any 2 criteria? No. Patient's initial sepsis screen is negative. Does the patient have a suspected source of infection? No. Patient's initial sepsis screen is negative. Risk Assessment: Do you want to hurt yourself or someone else? Patient reports no desire to harm self or others. Onset of symptoms was February 03, 2022. 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 - Social history:: Smoking status: unknown. Screenin:32 Abuse screen: Denies threats or abuse. Denies injuries from another. Nutritional ha1 screening: No deficits noted. Tuberculosis screening: No symptoms or risk factors identified. Fall Risk None identified. Assessment: 06:15 General: Appears uncomfortable, Behavior is cooperative, anxious. Pain: Denies pain. ha1 Neuro: Level of Consciousness is awake, alert, obeys commands, Oriented to person, place, time, situation. Cardiovascular: Patient's skin is warm and dry. Respiratory: Airway is patent Trachea midline Respiratory effort is even, unlabored, Respiratory pattern is regular, symmetrical. GI: No signs and/or symptoms were reported involving the gastrointestinal system. EENT: Ear canal w/ foreign body noted from right ear Reports a bag went into the ear.. 06:50 Reassessment: Patient and/or family updated on plan of care and expected duration. Pain ha1 level reassessed. awaiting for removal of insect. 07:15 Reassessment: Patient and/or family updated on plan of care and expected duration. Pain em6 level reassessed. General: Appears uncomfortable, Behavior is cooperative. Pain: Denies pain. Neuro: Level of Consciousness is awake, alert, obeys commands, Oriented to person, place, time, situation. Cardiovascular: Patient's skin is warm and dry. Respiratory: Airway is patent Respiratory effort is even, unlabored, Respiratory pattern is regular, symmetrical. GI: No signs and/or symptoms were reported involving the gastrointestinal system. EENT: Ear canal w/ foreign body noted from right ear. Musculoskeletal: Circulation, motion, and sensation intact. Range of motion: intact in all extremities. Vital Signs: 06:12 BP 145 / 60; Pulse 95; Resp 20 S; Temp 98.1(O); Pulse Ox 100% on R/A; Weight 195.04 kg bb (R); Height 5 ft. 5 in. (165.10 cm) (R); Pain 0/10; 06:15 BP 145 / 60; Pulse 95; Resp 19 S; Pulse Ox 100% on R/A; ha1 07:00 BP 142 / 65; Pulse 90; Resp 20; Pulse Ox 100% ; ha1 06:12 Body Mass Index 71.56 (195.04 kg, 165.10 cm) ED Course: 05:59 Patient arrived in ED. ja2 06:00 Stacey Sánchez MD is Attending Physician. sd2 06:14 Triage completed. bb 06:14 Arm band placed on Patient placed in an exam room, on a stretcher, on pulse oximetry. bb 06:28 Cindy Panda, THIERRY is Primary Nurse. ha1 06:32 Patient has correct armband on for positive identification. Bed in low position. Call ha1 light in reach. Side rails up X 1. 07:54 No provider procedures requiring assistance completed. Patient did not have IV access em6 during this emergency room visit. Administered Medications: 06:54 Drug: Lidocaine (1 %) 5 mg {Note: administered in the ear by in shift. for insect ha1 removal.} Route: Infiltration; 07:50 Follow up: Response: No adverse reaction em6 07:03 Drug: Ativan (LORazepam) 1 mg Route: PO; ha1 07:50 Follow up: Response: No adverse reaction; RASS: Alert and Calm (0) em6 Medication: 07:49 VIS not applicable for this client. em6 Outcome: 07:44 Discharge ordered by . sd2 07:54 Discharged to home ambulatory, with family. em6 07:54 Condition: stable 07:54 Discharge instructions given to patient, family, Instructed on discharge instructions, follow up and referral plans. Demonstrated understanding of instructions, follow-up care. 07:55 Patient left the ED. em6 Signatures: Sheryl Duncan RN RN Rupa Hough Stephanie, MD MD sd2 Cindy Panda RN RN ha1 Vivi Schwartz RN RN em6
--- NOTE | 2022-02-03 07:45 | EDPHYS ---
Physician Documentation [facility] Name: Pretty Wilson Age: 37 yrs Sex: Female : 1985 Arrival Date: 02/03/2022 Time: 05:59 Bed 5 Private MD: ED Physician Stacey Sánchez HPI: 02/03 06:29 This 37 yrs old Female presents to ER via Ambulatory with complaints of Foreign Body In sd2 Ear. 06:29 37 yo F presents with CC of foreign body in R ear. Reports woke up feeling as if a bug sd2 was in her ear moving around. Reports she dropped water into the ear but it did not come out. Denies any other complaints. . 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 - Social history:: Smoking status: unknown. ROS: 06:29 Constitutional: Negative for fever, chills, and weight loss, Eyes: Negative for injury, sd2 pain, redness, and discharge, ENT: Negative for injury and discharge, Positive for pain and foreign body. Cardiovascular: Negative for chest pain, palpitations, and edema, Respiratory: Negative for shortness of breath, cough, wheezing. Skin: Negative for injury, rash, and discoloration. Exam: 06:29 Constitutional: This is a well developed, well nourished patient who is awake, alert, sd2 and in no acute distress. Head/Face: Normocephalic, atraumatic. Eyes: EOMI, normal conjunctiva bilaterally ENT: Nares patent. No nasal discharge, no septal abnormalities noted. Foreign body visualized within R ear. Lidocaine dropped into the ear and insect able to be visualized with some surrounding oozing in the ear canal. Oropharynx with no redness, swelling, or masses, exudates, or evidence of obstruction, uvula midline. Mucous membranes moist. Vital Signs: 06:12 BP 145 / 60; Pulse 95; Resp 20 S; Temp 98.1(O); Pulse Ox 100% on R/A; Weight 195.04 kg bb (R); Height 5 ft. 5 in. (165.10 cm) (R); Pain 0/10; 06:15 BP 145 / 60; Pulse 95; Resp 19 S; Pulse Ox 100% on R/A; ha1 07:00 BP 142 / 65; Pulse 90; Resp 20; Pulse Ox 100% ; ha1 06:12 Body Mass Index 71.56 (195.04 kg, 165.10 cm) bb Procedures: 06:29 Performed Foreign body removal from ear. Lidocaine 2 mL dropped into the ear to kill sd2 visualized insect. Following this insect was able to be fully visualized up against the TM. Attempted removal with alligator forceps unsuccessful as patient not tolerating well and will not allow me to go into the ear canal deep enough to remove the insect. Further attempts made with irrigation with lukewarm water in a 60 cc syringe attached to an 18G angiocatheter and was successful with insect removed in whole. Pt tolerated the procedure well without complication. . MDM: 06:29 Patient medically screened. sd2 06:29 Differential Diagnosis Foreign body, TM rupture, abrasion among others. Data reviewed: sd2 vital signs, nurses notes. Administered Medications: 06:54 Drug: Lidocaine (1 %) 5 mg {Note: administered in the ear by in shift. for insect ha1 removal.} Route: Infiltration; 07:50 Follow up: Response: No adverse reaction em6 07:03 Drug: Ativan (LORazepam) 1 mg Route: PO; ha1 07:50 Follow up: Response: No adverse reaction; RASS: Alert and Calm (0) em6 Disposition Summary: 02/03/22 07:44 Discharge Ordered Location: Home sd2 Problem: new sd2 Symptoms: are resolved sd2 Condition: Stable sd2 Diagnosis - Foreign body in right ear sd2 Followup: sd2 - With: Private Physician - When: 2 - 3 days - Reason: Recheck today's complaints, Continuance of care, Re-evaluation by your physician Discharge Instructions: - Discharge Summary Sheet sd2 - Ear Foreign Body sd2 Forms: - Medication Reconciliation Form sd2 - Thank You Letter sd2 - Antibiotic Education sd2 - Prescription Opioid Use sd2 Signatures: Sheryl Duncan RN RN Satcey Evans MD MD sd2 Cindy Panda RN RN ha1 Vivi Schwartz RN RN em6 Corrections: (The following items were deleted from the chart) 07:44 06:29 Performed Foreign body removal from ear. Lidocaine 2 mL dropped into the ear to sd2 kill visualized insect. Following this insect was able to be fully visualized up against the TM. Attempted removal with alligator forceps unsuccessful as patient not tolerating well and will not allow me to go into the ear canal deep enough to remove the insect. . sd2
[2022-02-05 07:56] VITALS: TEMP 98.1; O2SAT 100
[2022-02-05 08:10] VITALS: BP 142/65
== END 2022-02-03 07:55 | disposition home or self-care (01) ==
LOC: ER 05:56
PROC: 09C3XZZ Extirpation of Matter from Right External Auditory Canal, External Approach (ICD-10-PCS; principal; 2022-02-03)
DX: T16.1XXA Foreign body in right ear, initial encounter (principal)
CPT/HCPCS: 99283

== ENCOUNTER 2022-04-05 21:18 | Emergency (ER) | payer SELFPAY ==
--- OUTSIDE RECORDS SUMMARY | 2022-04-05 21:21 | XMS REPORT | Continuity of Care Document ---
:1985 Author Organization [facility] t Address [address] [place] [address] Care Team Providers Name Role Phone Esther Praveena Attending Clinician Unavailable Orin Briscoe Attending Clinician Unavailable Problems Condition Condition Condition Status Onset Resolution Last Treating Co mments Source Name Details Category Date Date Treatment Clinician Date [id number] Anemia, Problem Active Commo n unspecifie [facility] d type [facility] Disorder Circulatio Problem Active Com mon of n problem [facility] cardiovasc [facility] ular [facility] [id number] Peripheral Problem Active Co mmon edema [facility] [id number] Tobacco Problem Active Commo n use [facility] [id number] Apnea Problem Active Common [facility] Heart Heart Problem Active Common disease disease [facility] [id number] Morbid Problem Active Common obesity [facility] [id number] Psoriasis Problem Active Commo n [facility] [id number] Uncontroll Problem Active Co mmon ed type 2 [facility] diabetes [facility] mellitus [facility] hyperglyce [facility] [id number] BMI 70 and Problem Active Co mmon over, [facility] adult [facility] [id number] Snoring Problem Active Common [facility] [id number] Acute pain Problem Active Com mon of right [facility] knee [facility] Memory Memory Problem Active Common problem problem [facility] [id number] Low TSH Problem Active Commo n level [facility] [id number] Congestive Problem Active Com mon heart [facility] failure, - [facility] chronicity [facility] unspecifie d heart failure type [id number] Hypertensi Problem Active Com mon on, Spirit unspecifie - [facility] d type [facility] Cardiac Abnormal Problem Active Common arrhythmia heart [facility] rhythm - [facility] Allergies, Adverse Reactions, Alerts Allergy Allergy Status Severity Reaction(s) Onset Inactive Treating Comm ents Source Name Type Date Date Clinician ibuprofe ibuprofe Active swelling of C ommon n n lips [facility] Social History Social Habit Start Date Stop Date Quantity Comments Source History of Tobacco Current Smoker Co mmon [facility] - [facility] Use [facility] Sex Assigned At Com [facility] Smoking Status Start Date Stop Date Source Current Smoker 2021-02-10 00:00:00 Common Spiri t [facility] Medications Ordered Filled Start Stop Current Ordering Indication Dosage Frequency Signature Comments Components Source Medication Medication Date Date Medication? Clinician (SIG) Name Name Triamcinolo Triamcinolo No 1{appli Triamcinol ne ne 8-03 cation} one Acetonide Acetonide 00:00: Acetonide 0.1 % 0.1 % 00 0.1 % Triamcinolo Triamcinolo No 1{appli Triamcinol ne ne 8-03 cation} one Acetonide Acetonide 00:00: Acetonide 0.1 % 0.1 % 00 0.1 % Triamcinolo Triamcinolo No 1{appli ne ne 8-03 cation} Acetonide Acetonide 00:00: 0.1 % 0.1 % 00 Triamcinolo Triamcinolo No 1{appli Triamcinol ne ne 8-03 cation} one Acetonide Acetonide 00:00: Acetonide 0.1 % 0.1 % 00 0.1 % Triamcinolo Triamcinolo No 1{appli Triamcinol ne ne 8-03 cation} one Acetonide Acetonide 00:00: Acetonide 0.1 % 0.1 % 00 0.1 % Metformin Metformin Yes Orin 1 tablet Common HCl HCl 8-31 Millender with a Spirit 00:00: meal - [facility] 00 [facility] metFORMIN metFORMIN 0 No 1{table QD metFORMIN HCl 1000 MG HCl 1000 MG 8-31 t_with_ HCl 1000 00:00: a_meal} MG 00 metFORMIN metFORMIN No 1{table QD metFORMIN HCl 1000 MG HCl 1000 MG 8-31 t_with_ HCl 1000 00:00: a_meal} MG 00 Metformin Metformin No 1{table QD Metformin HCl 1000 MG HCl 1000 MG 8-31 t_with_ HCl 1000 00:00: a_meal} MG 00 Metformin Metformin No 1{table QD Metformin HCl 1000 MG HCl 1000 MG 8-31 t_with_ HCl 1000 00:00: a_meal} MG 00 metFORMIN metFORMIN No 1{table QD HCl 1000 MG HCl 1000 MG 8-31 t_with_ 00:00: a_meal} 00 metFORMIN metFORMIN No 1{table QD metFORMIN HCl 1000 MG HCl 1000 MG 8-31 t_with_ HCl 1000 00:00: a_meal} MG 00 metFORMIN metFORMIN No 1{table QD metFORMIN HCl 1000 MG HCl 1000 MG 8-31 t_with_ HCl 1000 00:00: a_meal} MG 00 Metoprolol Metoprolol No 1{capsu QD Metoprolol Succinate Succinate le} Succinate 25 MG 25 MG 25 MG Furosemide Furosemide No QD Furosemide 20 mg 20 mg 20 mg Metoprolol Metoprolol No 1{capsu QD Metoprolol Succinate Succinate le} Succinate 25 MG 25 MG 25 MG ProAir HFA ProAir HFA No 2{puffs ProAir HFA 108 (90 108 (90 _as_nee 108 (90 Base) Base) ded} Base) MCG/ACT MCG/ACT MCG/ACT Lisinopril Lisinopril No 1{table QD Lisinopril 10 MG 10 MG t} 10 MG Furosemide Furosemide No QD Furosemide 20 mg 20 mg 20 mg Symbicort Symbicort No 2{puffs BID Symbicort 80-4.5 80-4.5 } 80-4.5 MCG/ACT MCG/ACT MCG/ACT Lisinopril Lisinopril Yes Orin 1 tablet Common [facility] - [facility] MetFORMIN MetFORMIN Yes Orin 1 tablet Common HCl ER HCl ER [facility] (MOD) (MOD) - [facility] Metoprolol Metoprolol Yes Orin 1 capsule Common Succinate Succinate Millender [facility] Symbicort Symbicort Yes Orin 2 puffs C ommon Millender [facility] Xopenex HFA Xopenex HFA Yes Orin 1 puff as Common Millender needed [facility] Furosemide Furosemide Yes Orin 1 tablet Common Millender as needed Spiri t for - [facility] swelling [facility] ProAir HFA ProAir HFA Yes Orin 2 puffs as Common Millender needed [facility] Lisinopril Lisinopril No 1{table QD Lisinopril 10 MG 10 MG t} 10 MG Furosemide Furosemide No QD Furosemide 20 mg 20 mg 20 mg Metoprolol Metoprolol No Metoprolol Succinate Succinate Succinate ER 25 MG ER 25 MG ER 25 MG ProAir HFA ProAir HFA No 2{puffs ProAir HFA 108 (90 108 (90 _as_nee 108 (90 Base) Base) ded} Base) MCG/ACT MCG/ACT MCG/ACT Symbicort Symbicort No 2{puffs BID Symbicort 80-4.5 80-4.5 } 80-4.5 MCG/ACT MCG/ACT MCG/ACT Lisinopril Lisinopril No 1{table QD Lisinopril 10 MG 10 MG t} 10 MG Symbicort Symbicort No 2{puffs BID Symbicort 80-4.5 80-4.5 } 80-4.5 MCG/ACT MCG/ACT MCG/ACT ProAir HFA ProAir HFA No 2{puffs ProAir HFA 108 (90 108 (90 _as_nee 108 (90 Base) Base) ded} Base) MCG/ACT MCG/ACT MCG/ACT Metoprolol Metoprolol No Metoprolol Succinate Succinate Succinate ER 25 MG ER 25 MG ER 25 MG Furosemide Furosemide No QD Furosemide 20 mg 20 mg 20 mg Symbicort Symbicort No 2{puffs BID Symbicort 80-4.5 80-4.5 } 80-4.5 MCG/ACT MCG/ACT MCG/ACT Furosemide Furosemide No QD Furosemide 20 mg 20 mg 20 mg Metoprolol Metoprolol No 1{capsu QD Metoprolol Succinate Succinate le} Succinate 25 mg 25 mg 25 mg Lisinopril Lisinopril No 1{table QD Lisinopril 10 MG 10 MG t} 10 MG ProAir HFA ProAir HFA No 2{puffs ProAir HFA 108 (90 108 (90 _as_nee 108 (90 Base) Base) ded} Base) MCG/ACT MCG/ACT MCG/ACT Xopenex HFA Xopenex HFA No 1{puff_ 6xD Xopenex 45 MCG/ACT 45 MCG/ACT as_need HFA 45 ed} MCG/ACT MetFORMIN MetFORMIN No 1{table QD MetFORMIN HCl ER HCl ER t} HCl ER (MOD) 1000 (MOD) 1000 (MOD) 1000 MG MG MG ProAir HFA ProAir HFA No 2{puffs ProAir HFA 108 (90 108 (90 _as_nee 108 (90 Base) Base) ded} Base) MCG/ACT MCG/ACT MCG/ACT Lisinopril Lisinopril No 1{table QD Lisinopril 10 MG 10 MG t} 10 MG Furosemide Furosemide No QD Furosemide 20 mg 20 mg 20 mg Metoprolol Metoprolol No 1{capsu QD Metoprolol Succinate Succinate le} Succinate 25 mg 25 mg 25 mg Symbicort Symbicort No 2{puffs BID Symbicort 80-4.5 80-4.5 } 80-4.5 MCG/ACT MCG/ACT MCG/ACT Lisinopril Lisinopril No 1{table QD 10 MG 10 MG t} Symbicort Symbicort No 2{puffs BID 80-4.5 80-4.5 } MCG/ACT MCG/ACT Metoprolol Metoprolol No 1{capsu QD Succinate Succinate le} 25 mg 25 mg ProAir HFA ProAir HFA No 2{puffs 108 (90 108 (90 _as_nee Base) Base) ded} MCG/ACT MCG/ACT Furosemide Furosemide No QD 20 mg 20 mg Symbicort Symbicort No 2{puffs BID Symbicort 80-4.5 80-4.5 } 80-4.5 MCG/ACT MCG/ACT MCG/ACT ProAir HFA ProAir HFA No 2{puffs ProAir HFA 108 (90 108 (90 _as_nee 108 (90 Base) Base) ded} Base) MCG/ACT MCG/ACT MCG/ACT Lisinopril Lisinopril No 1{table QD Lisinopril 10 MG 10 MG t} 10 MG Vital Signs Vital Name Observation Time Observation Value Comments Source blood pressure 2021-02-11 13:20:00 134 mm[Hg] Common [facility] systolic [facility] blood pressure 2021-02-11 13:20:00 74 mm[Hg] Common [facility] - diastolic [facility] height 2021-02-11 13:20:00 64.00 [in_i] Common [facility] weight 2021-02-11 13:20:00 425 [lb_av] [facility] temperature 2021-02-11 13:20:00 97.2 [degF] [facility] bmi 2021-02-11 13:20:00 72.94 kg/m2 [facility] oximetry 2021-02-11 13:20:00 97 % [facility] respiratory rate 2021-02-11 13:20:00 20 /min Comm on [facility] height 2020-08-30 15:20:00 64.00 [in_i] [facility] weight 2020-08-30 15:20:00 430 [lb_av] [facility] temperature 2020-08-30 15:20:00 97.5 [degF] [facility] bmi 2020-08-30 15:20:00 73.8 kg/m2 [facility] oximetry 2020-08-30 15:20:00 97 % [facility] respiratory rate 2020-08-30 15:20:00 15 /min Comm on [facility] blood pressure 2020-08-30 15:20:00 120 mm[Hg] [facility] systolic [facility] blood pressure 2020-08-30 15:20:00 80 mm[Hg] Common [facility] diastolic [facility] Procedures This patient has no known procedures. Encounters Start End Encounter Admission Attending Care Care Encounter Source Date/Time Date/Time Type Type Clinicians Facility Department ID 2021-09-09 Outpatient [place], STLMLC STLMLC [id number] Common 11:46:00 Praveena [facility] 2021-06-05 Outpatient [place], STLMLC STLMLC [id number] Common 13:55:56 Praveena [id number] [facility] 2021-06-05 Outpatient [place], STLMLC STLMLC [id number] Common 12:40:15 Praveena [id number] [facility] 2021-06-05 Outpatient STLMLC STLMLC [id number] Common 12:24:00 [id number] [facility] 2021-06-05 Outpatient Millender, STLMLC STLMLC [id number] Common 11:42:03 Orin [id number] [facility] 2021-06-05 Outpatient Millender, STLMLC STLMLC [id number] Common 11:14:01 Orin [id number] [facility] 2021-05-09 2021-05-09 (TEL) STLMLC STLMLC [id number] Co mmon 00:00:00 00:00:00 [facility] 2021-02-21 2021-02-21 (TEL) STLMLC STLMLC [id number] Co mmon 00:00:00 00:00:00 [facility] 2021-02-11 2021-02-11 OFFICE STLMLC STLMLC [id number] Co mmon 00:00:00 00:00:00 VISIT EST Spir it PT LEVEL 3 [facility] 2021 2021 (TEL) STLMLC STLMLC [id number] Co mmon 00:00:00 00:00:00 [facility] 2020-11-29 2020-11-29 (TEL) STLMLC STLMLC [id number] Co mmon 00:00:00 00:00:00 [facility] 2020-08-30 2020-08-30 OFFICE STLMLC STLMLC [id number] Co mmon 00:00:00 00:00:00 VISIT EST Spir it PT LEVEL 3 - [facility] 2020-06-06 2020-06-06 (TEL) STLMLC STLMLC [id number] Co mmon 00:00:00 00:00:00 [facility] 2020-01-09 2020-01-09 [id number] Common 11:40:00 11:40:00 t [facility] [address] [facility] 2020-01-09 2020-01-09 Outpatient STLMLC STLMLC [id number] Common 00:00:00 00:00:00 [facility] 2019-08-04 2019-08-04 [facility] [id number] Common 14:56:00 14:56:00 t [facility] [address] [facility] 2019-07-25 2019-07-25 [facility] [id number] Common 11:00:00 11:00:00 t [facility] [address] [facility] 2019-07-20 2019-07-20 [facility] [id number] Common 13:53:00 13:53:00 t [facility] [address] [facility] 2018-09-17 2018-09-17 [facility] [id number] Common 08:05:00 08:05:00 t [facility] [address] [facility] 2018-09-03 2018-09-03 [facility] [id number] Common 14:00:00 14:00:00 t [facility] [address] [facility] Results Test Description Test Time Test Comments Results Result Comments Source HEMOGLOBIN A1C 2021-02-11 00:00:00 Test Item Value Reference Range Interpretation Comme nts A1C (test code = 4548-4) 8.3% HEMOGLOBIN A1C Test Item Value Reference Range Interpretation Comments A1C (test code = 4548-4) 8.2
--- NOTE | 2022-04-05 22:19 | EDPHYS ---
Physician Documentation [facility] Name: Pretty Wilson Age: 37 yrs Sex: Female : 1985 Arrival Date: 04/05/2022 Time: 21:21 Bed 11 Private MD: ED Physician Mendez Barton HPI: 04/05 22:25 This 37 yrs old Female presents to ER via Ambulatory with complaints of Ear Pain. snw 22:25 The patient presents with swelling, tenderness. The complaints affect the right ear. snw Onset: The symptoms/episode began/occurred gradually, 2 month(s) ago, and became persistent. Associated signs and symptoms: The patient has no apparent associated signs or symptoms. Severity of symptoms: At their worst the symptoms were moderate severe. It is unknown whether or not the patient has had similar symptoms in the past. The patient has not recently seen a physician. 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 Last tetanus immunization: unknown. - Social history:: Smoking status: Patient reports the use of cigarette tobacco products, smokes one pack cigarettes per day. ROS: 22:24 Constitutional: Negative for fever, chills, and weight loss, Eyes: Negative for injury, snw pain, redness, and discharge, Neck: Negative for injury, pain, and swelling, Cardiovascular: Negative for chest pain, palpitations, and edema, Respiratory: Negative for shortness of breath, cough, wheezing, and pleuritic chest pain, Abdomen/GI: Negative for abdominal pain, nausea, vomiting, diarrhea, and constipation, Back: Negative for injury and pain, : Negative for injury, bleeding, discharge, and swelling, MS/Extremity: Negative for injury and deformity, Skin: Negative for injury, rash, and discoloration, Neuro: Negative for headache, weakness, numbness, tingling, and seizure. 22:24 ENT: Positive for ear pain, foreign body sensation. Exam: 22:21 Head/Face: Normocephalic, atraumatic. Eyes: Pupils equal round and reactive to light, snw extra-ocular motions intact. Lids and lashes normal. Conjunctiva and sclera are non-icteric and not injected. Cornea within normal limits. Periorbital areas with no swelling, redness, or edema. 22:21 Neck: Trachea midline, no thyromegaly or masses palpated, and no cervical lymphadenopathy. Supple, full range of motion without nuchal rigidity, or vertebral point tenderness. No Meningismus. Chest/axilla: Normal chest wall appearance and motion. Nontender with no deformity. No lesions are appreciated. Cardiovascular: Regular rate and rhythm with a normal S1 and S2. No gallops, murmurs, or rubs. Normal PMI, no JVD. No pulse deficits. 22:21 Abdomen/GI: Soft, non-tender, with normal bowel sounds. No distension or tympany. No guarding or rebound. No evidence of tenderness throughout. Back: No spinal tenderness. No costovertebral tenderness. Full range of motion. Skin: Warm, dry with normal turgor. Normal color with no rashes, no lesions, and no evidence of cellulitis. multiple areas of silvery plaques/scales MS/ Extremity: Pulses equal, no cyanosis. Neurovascular intact. Full, normal range of motion. 22:21 Constitutional: The patient appears alert, awake, obese, uncomfortable. 22:21 ENT: Ear canal(s): dry scaly flaking to canal, unable to see down to TM on right, TM's: not visable, because of discharge, Nose: is normal, Mouth: is normal, Posterior pharynx: Tonsils: bilaterally enlarged. 22:21 Respiratory: the patient does not display signs of respiratory distress, Respirations: normal, Breath sounds: wheezing: expiratory is heard in the right upper lobe. Vital Signs: 21:48 BP 157 / 102; Pulse 107; Resp 20; Temp 98.1; Pulse Ox 99% ; Weight 195.04 kg; Height 5 kb3 ft. 5 in. (165.10 cm); Pain 5/10; 22:05 BP 147 / 83; Pulse 115; Resp 15; Temp 98.9; Pulse Ox 99% ; rv1 21:48 Body Mass Index 71.56 (195.04 kg, 165.10 cm) kb3 MDM: 22:00 Patient medically screened. snw 22:24 Data reviewed: vital signs, nurses notes. Data interpreted: Pulse oximetry: on room air snw is 99 %. Interpretation: normal. Counseling: I had a detailed discussion with the patient and/or guardian regarding: the historical points, exam findings, and any diagnostic results supporting the discharge/admit diagnosis, the need for outpatient follow up, to return to the emergency department if symptoms worsen or persist or if there are any questions or concerns that arise at home. Response to treatment: the patient's symptoms have mildly improved after treatment. Special discussion: I have referred the patient to see his PCP for further evaluation of high blood pressure. Based on the history and exam findings, there is no indication for further emergent testing or inpatient evaluation. I discussed with the patient/guardian the need to see the licensing engineer for further evaluation of the symptoms. I discussed with the patient/guardian the need to see the ENT specialist for further evaluation of the symptoms. I discussed with the patient/guardian the need to see the primary care provider for further evaluation of the symptoms. Administered Medications: No medications were administered Disposition: 04/06 02:12 Co-signature as Attending Physician, Mendez Barton MD I agree with the assessment and rt plan of care. Disposition Summary: 04/05/22 22:18 Discharge Ordered Location: Home snw Condition: Stable snw Diagnosis - Essential (primary) hypertension snw - Bronchitis, not specified as acute or chronic snw - Psoriasis, unspecified snw Followup: snw - With: Emergency Department - When: As needed - Reason: Worsening of condition Followup: snw - With: Private Physician - When: 2 - 3 days - Reason: Recheck today's complaints, Continuance of care, Re-evaluation by your physician Discharge Instructions: - Discharge Summary Sheet snw - Acute Bronchitis, Adult snw - Hypertension, Adult snw - Psoriasis snw - Cough, Adult snw - DASH Eating Plan snw - Rehydration, Adult snw Forms: - Medication Reconciliation Form snw - Thank You Letter snw - Antibiotic Education snw - Prescription Opioid Use snw Prescriptions: - LORTISONE LOTION - instill 1 application by OTIC route 1-2 times daily; 30 milliliter; Refills: 0, snw Product Selection Permitted - albuterol sulfate 90 mcg/actuation Inhalation HFA aerosol inhaler - inhale 2 puff by INHALATION route every 4-6 hours; 1 vial; Refills: 0, Product snw Selection Permitted - Zyrtec 10 mg Oral Tablet - take 1 tablet by ORAL route once daily As needed; 20 tablet; Refills: 0, snw Product Selection Permitted - Metoprolol Tartrate 25 mg Oral Tablet - take 1 tablet by ORAL route 2 times per day with a meal; 20 tablet; Refills: 0, snw Product Selection Permitted - Lisinopril 10 mg Oral Tablet - take 1 tablet by ORAL route once daily; 20 tablet; Refills: 0, Product snw Selection Permitted - Pepcid 20 mg Oral Tablet - take 1 tablet by ORAL route once daily; 20 tablet; Refills: 0, Product snw Selection Permitted Signatures: Nicole Winn FNP-C [employer] Neela Oviedo RN RN kb3 Mendez Barton MD MD rt
--- NOTE | 2022-04-05 22:19 | ER ---
Nurse's Notes [facility] Name: Pretty Wilson Age: 37 yrs Sex: Female : 1985 Arrival Date: 04/05/2022 Time: 21:21 Bed 11 Private MD: Diagnosis: Essential (primary) hypertension;Bronchitis, not specified as acute or chronic;Psoriasis, unspecified Presentation: 04/05 21:48 Chief complaint: Patient states: right ear pain and itching x2 months, since she was kb3 seen in this ED with a bug in the right ear. Coronavirus screen: Vaccine status: Patient reports being unvaccinated. Client denies travel out of the [place] in the last 14 days. Ebola Screen: Patient negative for fever greater than or equal to 101.5 degrees Fahrenheit, and additional compatible Ebola Virus Disease symptoms Patient denies exposure to infectious person. Patient denies travel to an Ebola-affected area in the 21 days before illness onset. Initial Sepsis Screen: Does the patient meet any 2 criteria? No. Patient's initial sepsis screen is negative. Does the patient have a suspected source of infection? No. Patient's initial sepsis screen is negative. Risk Assessment: Do you want to hurt yourself or someone else? Patient reports no desire to harm self or others. Onset of symptoms was February 03, 2022. 21:48 Method Of Arrival: Ambulatory 3 21:48 Acuity: MELYSSA 4 kb3 Triage Assessment: 21:51 General: Appears in no apparent distress. Behavior is calm, cooperative. Pain: kb3 Complains of pain in right ear Pain does not radiate. Pain currently is 5 out of 10 on a pain scale. Quality of pain is described as Itching pressure. C[employer]IED [employer]: 21:51 LMP 03/11/2022 kb3 Historical: - Allergies: 21:51 Ibuprofen; kb3 - Home Meds: 21:51 Lisinopril [Active]; Metoprolol [Active]; kb3 - PMHx: 21:51 CHF; Diabetes - NIDDM; frequent bronchitis; Hypertension; psoriasis; kb3 - PSHx: 21:51 section; Ligation of fallopian tube; kb3 - Immunization history:: Adult Immunizations up to date, Client reports having NOT received the Covid vaccine. Last tetanus immunization: unknown. - Social history:: Smoking status: Patient reports the use of cigarette tobacco products, smokes one pack cigarettes per day. Screenin:34 Abuse screen: Denies threats or abuse. Denies injuries from another. Nutritional kd3 screening: No deficits noted. Tuberculosis screening: No symptoms or risk factors identified. Fall Risk None identified. Assessment: 22:34 General: Appears uncomfortable, Behavior is calm, cooperative. Neuro: Level of kd3 Consciousness is awake, alert, obeys commands, Oriented to person, place, time, situation. EENT: Tympanic membrane reddened on right ear. Vital Signs: 21:48 BP 157 / 102; Pulse 107; Resp 20; Temp 98.1; Pulse Ox 99% ; Weight 195.04 kg; Height 5 kb3 ft. 5 in. (165.10 cm); Pain 5/10; 22:05 BP 147 / 83; Pulse 115; Resp 15; Temp 98.9; Pulse Ox 99% ; rv1 21:48 Body Mass Index 71.56 (195.04 kg, 165.10 cm) kb3 ED Course: 21:21 Patient arrived in ED. bp1 21:22 [facility]C [facility] snw 21:22 Mendez Barton MD is Attending Physician. snw 21:51 Triage completed. kb3 21:51 Arm band placed on right wrist. kb3 22:34 Leah Fernandez, RN is Primary Nurse. kd3 22:34 Patient has correct armband on for positive identification. kd3 22:34 No provider procedures requiring assistance completed. Patient did not have IV access kd3 during this emergency room visit. Administered Medications: No medications were administered Medication: 22:35 VIS not applicable for this client. kd3 Outcome: 22:18 Discharge ordered by . snw 22:34 Discharged to home ambulatory. kd3 22:34 Condition: stable 22:34 Discharge instructions given to patient, Instructed on discharge instructions, follow up and referral plans. medication usage, Demonstrated understanding of instructions, follow-up care, medications, Prescriptions given X 5 22:35 Patient left the ED. kd3 Signatures: Nicole Winn FNP-C [employer]-Cs[employer] ZohaibodilonKaren dunlap bp1 Leah Fernandez, RN RN kd3 Neela Oviedo RN RN kb3 Fajardo, Heike rv1
== END 2022-04-05 22:35 | disposition home or self-care (01) ==
LOC: ER 21:18
DX: J40 Bronchitis, not specified as acute or chronic (principal); L40.9 Psoriasis, unspecified; I10 Essential (primary) hypertension
CPT/HCPCS: 99282

== ENCOUNTER 2024-02-21 18:21 | Emergency (ER) | payer SELFPAY ==
--- OUTSIDE RECORDS SUMMARY | 2024-02-21 18:24 | XMS REPORT | Continuity of Care Document ---
Author Name Unknown Address [address] [facility] [facility] [address] [place] [address] [facility] Address [address] [place] [address] Care Team Providers Care Director Of Casework Name Role Phone Gregorio Ramos Primary Care Physician [phone] Praveena Santana Attending Clinician Unavailable Orin Briscoe Attending Clinician Unavailable Problems Condition Name Condition Details Condition Category Status Onset Date Resolution Date Last Treatment Date Treating Clinician Comments Source [id number] Anemia, unspecifie d type Problem Active [facility] Disorder of cardiovasc ular system Circulatio n problem Problem Active [facility] [id number] Peripheral edema Problem Active [facility] [id number] Tobacco use Problem Active [facility] [id number] Apnea Problem Active [facility] Heart disease Heart disease Problem Active [facility] [id number] Morbid obesity Problem Active [facility] [id number] Psoriasis Problem Active [facility] [id number] Uncontroll ed type 2 diabetes mellitus with hyperglyce megan Problem Active [facility] [id number] BMI 70 and over, adult Problem Active [facility] [id number] Snoring Problem Active [facility] [id number] Acute pain of right knee Problem Active [facility] Memory problem Memory problem Problem Active [facility] [id number] Low TSH level Problem Active [facility] [id number] Congestive heart failure, unspecifie d HF chronicity , unspecifie d heart failure type Problem Active [facility] [id number] Hypertensi on, unspecifie d type Problem Active [facility] Cardiac arrhythmia Abnormal heart rhythm Problem Active [facility] Allergies, Adverse Reactions, Alerts Allergy Name Allergy Type Status Severity Reaction(s) Onset Date Inactive Date Treating Clinician Comments Source ibuprofe n Propensi ty to adverse reaction to drug Active 12-22 00:00: 00 Kaiden Dawson ibuprofe n ibuprofe n Active swelling of lips [facility] Social History Social Habit Start Date Stop Date Quantity Comments Source History of Tobacco Use Current Smoker [facility] Sex Assigned At [facility] Smoking Status Start Date Stop Date Source Current Smoker 2021-02-10 00:00:00 [facility] Medications Ordered Medication Name Filled Medication Name Start Date Stop Date Current Medication? Ordering Clinician Indication Dosage Frequency Signature (SIG) Comments Components Source rosuvastati n 5 mg tablet 12-22 00:00: 00 Yes 1mg Kaiden Dawson metoprolol tartrate 25 mg tablet 12-22 00:00: 00 Yes mg Kaiden Dawson albuterol sulfate HFA 90 mcg/actuati on aerosol inhaler 12-22 00:00: 00 Yes 1mcg/ac tuation Kaiden Dawson cetirizine 10 mg tablet 12-22 00:00: 00 Yes 1mg Kaiden Dawson lisinopril 20 mg tablet 12-22 00:00: 00 Yes 1mg Kaiden Dawson Victoza 2-Aldo 0.6 mg/0.1 mL (18 mg/3 mL) subcutaneou s pen injector 10-06 00:00: 00 Yes (18 mg/3 mL) Kaiden Dawson lisinopril 20 mg tablet 10-06 00:00: 00 Yes 1mg Kaiden Dawson rosuvastati n 5 mg tablet 10-06 00:00: 00 Yes 1mg Kaiden Dawson rosuvastati n 5 mg tablet 09-23 00:00: 00 Yes 1mg Kaiden Dawson metformin 500 mg tablet 09-22 00:00: 00 Yes mg Kaiden Dawson metoprolol tartrate 25 mg tablet 09-22 00:00: 00 Yes mg Kaiden Dawson cetirizine 10 mg tablet 09-22 00:00: 00 Yes 1mg Kaiden Dawson lisinopril 20 mg tablet 09-22 00:00: 00 Yes 1mg Kaiden Dawson azithromyci n 250 mg tablet 09-22 00:00: 00 Yes mg Kaiden Dawson methylpredn isolone 4 mg tablets in a dose pack 09-22 00:00: 00 Yes mg Kaiden Dawson Bromfed DM 2 mg-30 mg-10 mg/5 mL oral syrup 09-22 00:00: 00 Yes 10mg/5 mL Kaiden Dawson TAKE 1 TABLET TWICE DAILY. 06-25 00:00: 00 Yes 25 Kaiden Dawson TAKE 2 TABLETS ONCE A DAY WITH FOOD 06-25 00:00: 00 Yes 500 Kaiden Dawson TAKE 1 TABLET DAILY. 06-25 00:00: 00 Yes 10 Kaiden Dawson TAKE 1 TABLET DAILY. 06-25 00:00: 00 09-22 00:00 :00 No 10 Kaiden Dawson metformin 500 mg tablet 05-16 00:00: 00 Yes mg Kaiden Dawson lisinopril 10 mg tablet 05-16 00:00: 00 Yes mg Kaiden Dawson metoprolol tartrate 25 mg tablet 05-16 00:00: 00 Yes mg Kaiden Dawson Triamcinolo ne Acetonide 0.1 % Triamcinolo ne Acetonide 0.1 % 12-11 00:00: 00 No 1{appli cation} Triamcinol one Acetonide 0.1 % Triamcinolo ne Acetonide 0.1 % Triamcinolo ne Acetonide 0.1 % 12-11 00:00: 00 No 1{appli cation} Triamcinol one Acetonide 0.1 % Metformin HCl Metformin HCl 01-08 00:00: 00 Yes Orin Briscoe 1 tablet with a meal [facility] metFORMIN HCl 1000 MG metFORMIN HCl 1000 MG 01-08 00:00: 00 No 1{table t_with_ a_meal} QD metFORMIN HCl 1000 MG metFORMIN HCl 1000 MG metFORMIN HCl 1000 MG 01-08 00:00: 00 No 1{table t_with_ a_meal} QD metFORMIN HCl 1000 MG Lisinopril Lisinopril Yes Orin Millender 1 tablet [facility] MetFORMIN HCl ER (MOD) MetFORMIN HCl ER (MOD) Yes Orin Brownender 1 tablet [facility] Metoprolol Succinate Metoprolol Succinate Yes Orin Brownender 1 capsule [facility] Symbicort Symbicort Yes Orin Brownender 2 puffs [facility] Xopenex HFA Xopenex HFA Yes Orin Brownender 1 puff as needed [facility] Furosemide Furosemide Yes Orin Millender 1 tablet as needed for swelling [facility] ProAir HFA ProAir HFA Yes Orin Brownender 2 puffs as needed [facility] Lisinopril 10 MG Lisinopril 10 MG No 1{table t} QD Lisinopril 10 MG Furosemide 20 mg Furosemide 20 mg No QD Furosemide 20 mg Metoprolol Succinate ER 25 MG Metoprolol Succinate ER 25 MG No Metoprolol Succinate ER 25 MG ProAir HFA 108 (90 Base) MCG/ACT ProAir HFA 108 (90 Base) MCG/ACT No 2{puffs _as_nee ded} ProAir HFA 108 (90 Base) MCG/ACT Symbicort 80-4.5 MCG/ACT Symbicort 80-4.5 MCG/ACT No 2{puffs } BID Symbicort 80-4.5 MCG/ACT Lisinopril 10 MG Lisinopril 10 MG No 1{table t} QD Lisinopril 10 MG Symbicort 80-4.5 MCG/ACT Symbicort 80-4.5 MCG/ACT No 2{puffs } BID Symbicort 80-4.5 MCG/ACT ProAir HFA 108 (90 Base) MCG/ACT ProAir HFA 108 (90 Base) MCG/ACT No 2{puffs _as_nee ded} ProAir HFA 108 (90 Base) MCG/ACT Metoprolol Succinate ER 25 MG Metoprolol Succinate ER 25 MG No Metoprolol Succinate ER 25 MG Furosemide 20 mg Furosemide 20 mg No QD Furosemide 20 mg Metoprolol Succinate 25 mg Metoprolol Succinate 25 mg No 1{capsu le} QD Metoprolol Succinate 25 mg Xopenex HFA 45 MCG/ACT Xopenex HFA 45 MCG/ACT No 1{puff_ as_need ed} 6xD Xopenex HFA 45 MCG/ACT MetFORMIN HCl ER (MOD) 1000 MG MetFORMIN HCl ER (MOD) 1000 MG No 1{table t} QD MetFORMIN HCl ER (MOD) 1000 MG Vital Signs Vital Name Observation Time Observation Value Comments S ource blood pressure systolic 2021-02-11 13:20:00 134 mm[Hg] [facility] blood pressure diastolic 2021-02-11 13:20:00 74 mm[Hg] [facility] height 2021-02-11 13:20:00 64.00 [in_i] Com [facility] weight 2021-02-11 13:20:00 425 [lb_av] Comm on [facility] temperature 2021-02-11 13:20:00 97.2 [degF] Com [facility] bmi 2021-02-11 13:20:00 72.94 kg/m2 Comm on [facility] oximetry 2021-02-11 13:20:00 97 % [facility] respiratory rate 2021-02-11 13:20:00 20 /min [facility] height 2020-08-30 15:20:00 64.00 [in_i] Com [facility] weight 2020-08-30 15:20:00 430 [lb_av] Comm on [facility] temperature 2020-08-30 15:20:00 97.5 [degF] Com mon [facility] bmi 2020-08-30 15:20:00 73.8 kg/m2 Com[facility] n [facility] oximetry 2020-08-30 15:20:00 97 % Commo n [facility] respiratory rate 2020-08-30 15:20:00 15 /min [facility] blood pressure systolic 2020-08-30 15:20:00 120 mm[Hg] [facility] blood pressure diastolic 2020-08-30 15:20:00 80 mm[Hg] Common [facility] BP Systolic 2023-12-23 17:42:00 146 mm[Hg] Step hen F Samir BP Diastolic 2023-12-23 17:42:00 85 mm[Hg] [facility] phen F Samir Weight Measured 2023-12-23 17:42:00 411.00 pounds Kaiden F Samir Height Measured 2023-12-23 17:42:00 65.00 inches Kaiden F Samir Body Temperature 2023-12-23 17:42:00 97.30 degrees Kaiden F Samir Heart Rate 2023-12-23 17:42:00 100.00 /min Step hen F Samir Respiratory Rate 2023-12-23 17:42:00 18.00 /min Kaiden F Samir BP Systolic 2023-12-23 17:27:00 146 mm[Hg] Step hen F Samir BP Diastolic 2023-12-23 17:27:00 85 mm[Hg] [place] phen F Saimr Weight Measured 2023-12-23 17:27:00 411.00 pounds Kaiden F Samir Height Measured 2023-12-23 17:27:00 65.00 inches Kaiden F Samir Body Temperature 2023-12-23 17:27:00 97.30 degrees Kaiden F Samir Heart Rate 2023-12-23 17:27:00 100.00 /min Step hen F Samir Respiratory Rate 2023-12-23 17:27:00 18.00 /min Kaiden F Samir BP Systolic 2023-10-07 13:51:00 Step hen F Samir BP Diastolic 2023-10-07 13:51:00 [place] phen F Samir Weight Measured 2023-10-07 13:51:00 399.40 pounds Kaiden F Samir Height Measured 2023-10-07 13:51:00 65.00 inches Kaiden F Samir Body Temperature 2023-10-07 13:51:00 97.70 degrees Kaiden F Samir Heart Rate 2023-10-07 13:51:00 Miriam en F Samir Respiratory Rate 2023-10-07 13:51:00 Kaiden F Samir Respiratory Rate 2023-10-07 13:34:00 18.00 /min Kaiden F Samir BP Systolic 2023-10-07 13:34:00 129 mm[Hg] Step hen F Samir BP Diastolic 2023-10-07 13:34:00 77 mm[Hg] [place] phen F Samir Weight Measured 2023-10-07 13:34:00 399.40 pounds Kaiden F Samir Height Measured 2023-10-07 13:34:00 65.00 inches Kaiden F Samir Body Temperature 2023-10-07 13:34:00 97.70 degrees Kaiden F Samir Heart Rate 2023-10-07 13:34:00 91.00 /min Miriam en F Samir Heart Rate 2023-09-23 14:17:00 100.00 /min Step hen F Samir Respiratory Rate 2023-09-23 14:17:00 17.00 /min Kaiden F Samir BP Systolic 2023-09-23 14:17:00 148 mm[Hg] Step hen F Samir BP Diastolic 2023-09-23 14:17:00 88 mm[Hg] [place] phen F Samir Weight Measured 2023-09-23 14:17:00 408.80 pounds Kaiden F Samir Height Measured 2023-09-23 14:17:00 65.00 inches Kaiden F Samir Body Temperature 2023-09-23 14:17:00 97.30 degrees Kaiden F Samir BP Systolic 2023-09-23 13:37:00 148 mm[Hg] Step hen F Samir BP Diastolic 2023-09-23 13:37:00 88 mm[Hg] [place] phen F Samir Weight Measured 2023-09-23 13:37:00 408.80 pounds Kaiden F Samir Height Measured 2023-09-23 13:37:00 65.00 inches Kaiden F Samir Body Temperature 2023-09-23 13:37:00 97.30 degrees Kaiden F Samir Heart Rate 2023-09-23 13:37:00 100.00 /min Step hen F Samir Respiratory Rate 2023-09-23 13:37:00 17.00 /min Kaiden F Samir BP Systolic 2023-06-25 17:31:00 Step hen F Samir BP Diastolic 2023-06-25 17:31:00 [place] phen F Samir Weight Measured 2023-06-25 17:31:00 409.00 pounds Kaiden F Samir Height Measured 2023-06-25 17:31:00 65.00 inches Kaiden F Samir Body Temperature 2023-06-25 17:31:00 Kaiden F Samir Heart Rate 2023-06-25 17:31:00 Miriam en F Samir Respiratory Rate 2023-06-25 17:31:00 Kaiden F Samir BP Systolic 2023-06-25 17:01:00 137 mm[Hg] Step hen F Samir BP Diastolic 2023-06-25 17:01:00 89 mm[Hg] [place] phen F Samir Weight Measured 2023-06-25 17:01:00 409.00 pounds Kaiden F Samir Height Measured 2023-06-25 17:01:00 65.00 inches Kaiden F Samir Body Temperature 2023-06-25 17:01:00 98.40 degrees Kaiden F Samir Heart Rate 2023-06-25 17:01:00 85.00 /min Miriam en F Samir Respiratory Rate 2023-06-25 17:01:00 Kaiden F Samir Encounters Start Date/Time End Date/Time Encounter Type Admission Type Attending [facility] Facility Care Department Encounter ID Source 2021-09-09 11:46:00 Outpatient Praveena Santana [facility] [id number] [facility] 2021-06-05 13:55:56 Outpatient Praveena Santana [facility] [id number] [facility] 2021-06-05 12:40:15 Outpatient Praveena Santana [facility] [id number] [facility] 2021-06-05 12:24:00 [facility]patient [facility] [id number] [facility] 2021-06-05 11:42:03 Outpatient Orin Briscoe [facility] [id number] [facility] 2021-06-05 11:14:01 Outpatient Orin Briscoe [facility] [id number] [facility] 2023-12-23 17:24:49 2023-12-23 17:24:49 Outpatient [facility] S[facility] [id number] Kaiden Dawson 2023-12-23 00:00:00 2023-12-23 00:00:00 Outpatient Visit [facility] [id number] Kaiden Dawson 2023-10-07 13:33:55 2023-10-07 13:33:55 Outpatient S[facility] [id number] [id number] Kaiden Dawson 2023-10-07 00:00:00 2023-10-07 00:00:00 Outpatient Visit [facility] [id number] Kaiden Dawson 2023-09-23 13:37:26 2023-09-23 13:37:26 Outpatient SFA SFA [id number] Kaiden Dawson 2023-09-23 00:00:00 2023-09-23 00:00:00 Outpatient Visit [facility] [id number] Kaiden Dawson 2023-06-25 17:13:30 2023-06-25 17:13:30 Outpatient SFA SFA [id number] Kaiden Dawson 2021-05-09 00:00:00 2021-05-09 00:00:00 (TEL) [facility] [id number] [facility] 2021-02-21 00:00:00 2021-02-21 00:00:00 (TEL) STLMLC STL[facility]C [id number] [facility] 2021-02-11 00:00:00 2021-02-11 00:00:00 OFFICE VISIT EST PT LEVEL 3 [facility]C STL[facility]C [id number] [facility] 2021 00:00:00 2021 00:00:00 (TEL) STLMLC STLMLC [id number] [facility] 2020-11-29 00:00:00 2020-11-29 00:00:00 (TEL) STLMLC STLMLC [id number] [facility] 2020-08-30 00:00:00 2020-08-30 00:00:00 OFFICE VISIT EST PT LEVEL 3 STLMLC STLMLC [id number] [facility] 2020-06-06 00:00:00 2020-06-06 00:00:00 (TEL) STLMLC STLMLC [id number] [facility] 2020-01-09 11:40:00 2020-01-09 11:40:00 [facility] [id number] [facility] 2020-01-09 00:00:00 2020-01-09 00:00:00 Outpatient [facility] STL[facility] [id number] [facility] 2019-08-04 14:56:00 2019-08-04 14:56:00 [facility] [id number] [facility] 2019-07-25 11:00:00 2019-07-25 11:00:00 [facility] [id number] [facility] 2019-07-20 13:53:00 2019-07-20 13:53:[address] [facility] [address] [facility] [id number] [facility] 2018-09-17 08:05:00 2018-09-17 08:05:00 [facility] [id number] [facility] 2018-09-03 14:00:00 2018-09-03 14:00:00 [facility] [id number] [facility] Results Test Description Test Time Test Comments Results Result Co mments Source LIPID [id number] 05:22:09* Test Item Value Reference Range Interpretation Comme nts CHOLESTEROL (test code = 2210) 168 MG/DL <200 TRIGLYCERIDES (test code = 2232) 144 MG/DL <150 HDL CHOLESTEROL (test code = 2220) 32 MG/DL >39 L CALC LDL CHOL (test code = 2237) 110 MG/DL <100 H NOTE: CALCULATED LDL IS BASED ON JARET-ARAUZ METHOD WHICHINCLUDES ADJUSTABLE TRIGLYCERIDE:VLDL CHOLESTEROL RATIO.THIS FACTOR VARIES BY MEASURED TRIGLYCERIDE AND NON-HDLCHOLESTEROL CONCENTRATIONS WITH INCREASED CALCULATED LDL SEENIN HIGHER TRIGLYCERIDE OR LOWER NON-HDL SPECIMENS. FOR MOREINFORMATION, SEE CLIENT ANNOUNCEMENT AT [email or web address] RISK RATIO LDL/HDL (test code = 2238) 3.44 RATIO <3.22 H COMPREHENSIVE METABOLIC [id number] 05:22:09* Test Item Value Reference Range Interpretation Comme nts GLUCOSE (test code = 2217) 256 MG/DL 70-99 H BUN (test code = 2208) 8 MG/DL 6-20 CREATININE (test code = 2214) 0.45 MG/DL 0.60-1.30 L eGFR (2020 CKD-EPI) (test code = 64234) 125 ML/MIN/1.73 >60 CALC BUN/CREAT (test code = 2235) 18 RATIO 6-28 SODIUM (test code = 223) 140 MEQ/L 133-146 POTASSIUM (test code = 2228) 4.5 MEQ/L 3.5-5.4 CHLORIDE (test code = 2215) 101 MEQ/L 95-107 CARBON DIOXIDE (test code = 2206) 26 MEQ/L 19-31 CALCIUM (test code = 2209) 9.0 MG/DL 8.5-10.5 PROTEIN, TOTAL (test code = 222) 6.7 G/DL 6.1-8.3 ALBUMIN (test code = 220) 3.9 G/DL 3.5-5.2 CALC GLOBULIN (test code = 2240) 2.8 G/DL 1.9-3.7 CALC A/G RATIO (test code = 2234) 1.4 RATIO 1.0-2.6 BILIRUBIN, TOTAL (test code = 2207) 0.6 MG/DL <=1.2 ALKALINE PHOSPHATASE (test code = 2204) 93 U/L 40-112 AST (test code = 2218) 13 U/L 9-40 ALT (test code = 2219) 14 U/L 5-40 HEMOGLOBIN [id number] 03:26:04* Test Item Value Reference Range Interpretation Comme nts HEMOGLOBIN A1c (test code = 69819) 8.0 % 4.2-5.6 H [employer] GUIDELINES FOR HGB A1C: PREDIABETES/INCREASED RISK . . . . . . . 5.7-6.4% DIAGNOSIS OF DIABETES . . . . . . . . . >=6.5% WITH CONFIRMATION OR APPROPRIATE SYMPTOMS NOTE: ASSAY MAY BE AFFECTED BY HEMOGLOBINOPATHIES (SICKLE CELL ANEMIA, S-C DISEASE, OTHERS) OR ARTIFICIALLY LOWERED BY DECREASED RED CELL SURVIVAL (HEMOLYTIC ANEMIAS, BLOOD LOSS, ETC.). CONSIDER ALTERNATE TESTING OR LABORATORY CONSULTATION. HEMOGLOBIN [id number] 00:00:00* Test Item Value Reference Range Interpretation Comme [facility] HEMOGLOBIN A1c (test code = 13890) 8.0 % Kaiden Homer SamirLIPID [id number] 00:00:00* Test Item Value Reference Range Interpretation Comme nts CHOLESTEROL (test code = 2210) 168 MG/DL TRIGLYCERIDES (test code = 2232) 144 MG/DL HDL CHOLESTEROL (test code = 2220) 32 MG/DL CALC LDL CHOL (test code = 2237) 110 MG/DL RISK RATIO LDL/HDL (test cod e = 2238) 3.44 RATIO Kaiden Homer SamirCOMPREHENSIVE METABOLIC [id number] 00:00:00* Test Item Value Reference Range Interpretation Comme nts GLUCOSE (test code = 2217) 256 MG/DL BUN (test code = 2208) 8 MG/DL CREATININE (test code = 2214) 0.45 MG/DL eGFR (2020 CKD-EPI) (test code = 66149) 125 ML/MIN/1.73 CALC BUN/CREAT (test code = 2235) 18 RATIO SODIUM (test code = 2231) 140 MEQ/L POTASSIUM (test code = 2228) 4.5 MEQ/L CHLORIDE (test code = 2215) 101 MEQ/L CARBON DIOXIDE (test code = 2206) 26 MEQ/L CALCIUM (test code = 2209) 9.0 MG/DL PROTEIN, TOTAL (test code = 2229) 6.7 G/DL ALBUMIN (test code = 2201) 3.9 G/DL CALC GLOBULIN (test code = 2240) 2.8 G/DL CALC A/G RATIO (test code = 2234) 1.4 RATIO BILIRUBIN, TOTAL (test code = 2207) 0.6 MG/DL ALKALINE PHOSPHATASE (test code = 2204) 93 U/L AST (test code = 2218) 13 U/L ALT (test code = 2219) 14 U/L Kaiden aDwsonALBUMIN/CREATININE RATIO, RANDOM [id number] 00:00:00* Test Item Value Reference Range Interpretation Comme nts CREATININE, URINE, CONC. (te st code = 2072) 107.2 MG/DL ALBUMIN, URINE, RANDOM (test code = 25146) 5.2 MG/DL CALC ALBUMIN/CREAT, RND (delta t code = 21518) 49 MG/G Kaiden DawsonHEMOGLOBIN [id number] 00:00:00* Test Item Value Reference Range Interpretation Comme nts HEMOGLOBIN A1c (test code = 88923) 8.0 % Kaiden DawsonLIPID [id number] 00:00:00* Test Item Value Reference Range Interpretation Comme nts CHOLESTEROL (test code = 2210) 168 MG/DL TRIGLYCERIDES (test code = 2232) 144 MG/DL HDL CHOLESTEROL (test code = 2220) 32 MG/DL CALC LDL CHOL (test code = 2237) 110 MG/DL RISK RATIO LDL/HDL (test cod e = 2238) 3.44 RATIO Kaiden DawsonCOMPREHENSIVE METABOLIC [id number] 00:00:00* Test Item Value Reference Range Interpretation Comme nts GLUCOSE (test code = 2217) 256 MG/DL BUN (test code = 2208) 8 MG/DL CREATININE (test code = 2214) 0.45 MG/DL eGFR (2020 CKD-EPI) (test code = 47291) 125 ML/MIN/1.73 CALC BUN/CREAT (test code = 2235) 18 RATIO SODIUM (test code = 2231) 140 MEQ/L POTASSIUM (test code = 2228) 4.5 MEQ/L CHLORIDE (test code = 2215) 101 MEQ/L CARBON DIOXIDE (test code = 2206) 26 MEQ/L CALCIUM (test code = 2209) 9.0 MG/DL PROTEIN, TOTAL (test code = 2229) 6.7 G/DL ALBUMIN (test code = 2201) 3.9 G/DL CALC GLOBULIN (test code = 2240) 2.8 G/DL CALC A/G RATIO (test code = 2234) 1.4 RATIO BILIRUBIN, TOTAL (test code = 2207) 0.6 MG/DL ALKALINE PHOSPHATASE (test code = 2204) 93 U/L AST (test code = 2218) 13 U/L ALT (test code = 2219) 14 U/L Kaiden DawsonALBUMIN/CREATININE RATIO, RANDOM [id number] 00:00:00* Test Item Value Reference Range Interpretation Comme nts CREATININE, URINE, CONC. (te st code = 2072) 107.2 MG/DL ALBUMIN, URINE, RANDOM (test code = 16592) 5.2 MG/DL CALC ALBUMIN/CREAT, RND (delta t code = 09312) 49 MG/G Kaiden DawsonHEMOGLOBIN [id number] 00:00:00* Test Item Value Reference Range Interpretation Comme [facility] A1C (test code = 4548-4) 8.3% HEMOGLOBIN A1C* Test Item Value Reference Range Interpretation Comme nts A1C (test code = 4548-4) 8.2 Notes Date/Time Note Provider Source Kaiden FJovon [facility]2024-05-29 00:00:00 Kaiden Jovon [facility]2024-05-15 00:00:00 [facility]
--- NOTE | 2024-02-21 19:57 | ER ---
Nurse's Notes [facility] Name: Pretty Wilson Age: 39 yrs Sex: Female : 1985 Arrival Date: 02/21/2024 Time: 18:21 Bed 17 Private MD: Diagnosis: Localized swelling, mass and lump, trunk Presentation: 02/20 18:31 Coronavirus screen: Client denies travel out of the [place] in the last 14 days. At this ll1 time, the client does not indicate any symptoms associated with coronavirus-19. Ebola Screen: Patient denies travel to an Ebola-affected area in the 21 days before illness onset. Initial Sepsis Screen: Does the patient meet any 2 criteria? No. Patient's initial sepsis screen is negative. Does the patient have a suspected source of infection? No. Patient's initial sepsis screen is negative. Risk Assessment: Do you want to hurt yourself or someone else? Patient reports no desire to harm self or others. Onset of symptoms was December 22, 2023. 18:31 Method Of Arrival: Ambulatory ll1 18:31 Acuity: MELYSSA 3 ll1 18:31 Chief complaint: Patient states: Lumps to trunk and abdominal area started about 2 ll1 months ago. Some are painful, no fever. States the lumps have increased in number. Triage Assessment: 18:30 General: Appears uncomfortable, Behavior is calm, cooperative, appropriate for age. ll1 Pain: Complains of pain in abdomen Pain currently is 8 out of 10 on a pain scale. Quality of pain is described as aching. GI: Reports lumps to abdominal area getting worse for 2 months. Musculoskeletal: Reports lumps to trunk area. 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 - Social history:: Smoking status: Patient reports the use of cigarette tobacco products, smokes one pack cigarettes per day. Assessment: 19:25 General: Appears in no apparent distress. obese, Behavior is calm, cooperative, rg5 appropriate for age. Pain: Denies pain. Neuro: Level of Consciousness is awake, alert, obeys commands, Oriented to person, place, time, situation. Cardiovascular: Capillary refill < 3 seconds Patient's skin is warm and dry. Respiratory: Airway is patent Trachea midline Respiratory effort is even, unlabored, Respiratory pattern is regular, symmetrical. GI: Abdomen is round obese, Abd is soft and non tender X 4 quads. : No signs and/or symptoms were reported regarding the genitourinary system. EENT: No deficits noted. Derm: Skin is intact, Skin is dry, Skin is normal, Skin temperature is warm. Musculoskeletal: Circulation, motion, and sensation intact. Range of motion: intact in all extremities. Vital Signs: 18:31 BP 159 / 88; Pulse 93; Resp 20; Temp 97.1; Pulse Ox 98% ; Weight 176.9 kg; Height 5 ft. ll1 5 in. ; Pain 8/10; 19:24 BP 112 / 62; Pulse 90; Resp 17; Pulse Ox 97% on R/A; rg5 18:31 Body Mass Index 64.90 (176.90 kg, 165.1 cm) ll1 18:31 Pain Scale: Adult ll1 ED Course: 18:25 Patient arrived in ED. ra3 18:25 Nancy De Anda PA-C is [facility]. sb4 18:25 Reza Moreno MD is Attending Physician. sb4 18:31 Triage completed. ll1 18:31 Arm band placed on Patient placed in an exam room, on a stretcher. ll1 18:33 Carley Tsai, RN is Primary Nurse. mo1 18:42 Door closed. Warm blanket given. Pillow given. ll1 Administered Medications: No medications were administered Outcome: 19:57 Discharge ordered by . sb4 20:00 Patient left the ED. rg5 Signatures: Leonela Diaz RN RN 1 Nancy De Anda PA-C PA-C sb4 Carley Tsai, THIERRY RN mo1 Esther Hernandez ra3 Akbar Bower RN RN rg5
--- NOTE | 2024-02-21 19:57 | EDPHYS ---
Physician Documentation [facility] Name: Pretty Wilson Age: 39 yrs Sex: Female : 1985 Arrival Date: 02/21/2024 Time: 18:21 Bed 17 Private MD: ED Physician Reza Moreno HPI: 02/20 20:55 This 39 yrs old Female presents to ER via Ambulatory with complaints of Lumps on sb4 stomach and back. 20:55 Patient states that she has multiple "lumps "under her skin in her abdominal and back sb4 region. She states that she feels like they move around and she can only feel them when she lays in certain positions. She states that they do not really cause her pain but cause her some discomfort. She denies any redness, drainage, tenderness. 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 - Social history:: Smoking status: Patient reports the use of cigarette tobacco products, smokes one pack cigarettes per day. ROS: 20:55 Constitutional: Negative for fever, chills, and weight loss, sb4 20:55 Skin: Positive for per HPI, Exam: 20:55 Head/Face: Normocephalic, atraumatic. Eyes: Extra-ocular motions intact. Periorbital sb4 areas with no swelling, redness, or edema. ENT: Mucous membranes moist. Abdomen/GI: Soft, non-tender, no distension. Back: No spinal tenderness. No costovertebral tenderness. Full range of motion. Skin: Warm, dry with normal turgor. Normal color with no rashes, no lesions, and no evidence of cellulitis. 20:55 Constitutional: The patient appears in no acute distress, alert, awake, obese, Vital Signs: 18:31 BP 159 / 88; Pulse 93; Resp 20; Temp 97.1; Pulse Ox 98% ; Weight 176.9 kg; Height 5 ft. ll1 5 in. ; Pain 8/10; 19:24 BP 112 / 62; Pulse 90; Resp 17; Pulse Ox 97% on R/A; rg5 18:31 Body Mass Index 64.90 (176.90 kg, 165.1 cm) ll1 18:31 Pain Scale: Adult ll1 MDM: 18:27 Patient medically screened. sb4 20:56 Data reviewed: vital signs, nurses notes, and as a result, I will discharge patient. sb4 Test considered but Not performed: CT: CT abd/pelvis, patient exceeds the weight limit. Counseling: I had a detailed discussion with the patient and/or guardian regarding the need for outpatient follow up, for definitive care. ED course: Offered CT scan but unfortunately patient exceeds the weight limit. I did examine her thoroughly and did not find anything concerning. I did reassure her of this. She requested transfer to a facility that has a larger CT scan but I informed her that this is not an emergent problem and she does not warrant a transfer. She was unhappy with that decision but understands. I did instruct her to follow-up with her primary care so they can obtain it on an outpatient basis. Administered Medications: No medications were administered Disposition Summary: 02/21/24 19:57 Discharge Ordered Notes: Location: Home sb4 Problem: an ongoing problem sb4 Symptoms: are unchanged sb4 Condition: Stable sb4 Diagnosis - Localized swelling, mass and lump, trunk sb4 Followup: sb4 - With: Private Physician - When: As needed - Reason: Further diagnostic work-up, Recheck today's complaints, Re-evaluation by your physician Discharge Instructions: - Discharge Summary Sheet sb4 Forms: - Patient Portal Instructions sb4 - Leadership Thank You Letter sb4 Addendum: 02/23/2024 18:00 I was immediately available for consultation during this patient's visit. I did not e c2 personally see the patient or discuss the patient with the ROSA. . Signatures: Dispatcher [employer] Leonela Schultz, RN RN ll1 Nancy De Anda PA-C PA-C sb4 Reza Moreno MD MD ec2 Corrections: (The following items were deleted from the chart) 02/20 19:37 18:55 Abdomen Pelvis Wo Con+CT.RAD.BRZ ordered. EDMS EDMS
[2024-02-21 23:56] VITALS: TEMP 97.1
[2024-02-21 23:58] VITALS: BP 112/62; O2SAT 97
== END 2024-02-21 20:00 | disposition home or self-care (01) ==
LOC: ER 18:21
DX: R22.2 Localized swelling, mass and lump, trunk (principal)

== ENCOUNTER 2024-12-12 22:10 | Inpatient (IN) | payer OTHER, SELFPAY ==
--- OUTSIDE RECORDS SUMMARY | 2024-12-12 22:16 | XMS REPORT | Continuity of Care Document ---
Author Name Unknown Address [address] [place] [address] [facility] [place] Address [address] [place] [address] Care Team Providers Care Tube Roller Name Role Phone Gregorio Ramos Primary Care Physician Praveena Santana Attending Clinician Unavailable Orin Briscoe Attending Clinician Unavailable Problems Condition Name Condition Details Condition Category Status Onset Date Resolution Date Last Treatment Date Treating Clinician Comments Source Heart disease Heart disease Problem Active [facility] [id number] Morbid obesity Problem Active [facility] [id number] Psoriasis Problem Active [facility] [id number] Uncontroll ed type 2 diabetes mellitus with hyperglyce megan Problem Active [facility] [id number] BMI 70 and over, adult Problem Active [facility] [id number] Snoring Problem Active [facility] [id number] Acute pain of right knee Problem Active [facility] Memory problem Memory problem Problem Active [facility] [id number] Low TSH level Problem Active [facility] [id number] Congestive heart failure, unspecifie d HF chronicity , unspecifie d heart failure type Problem Active [facility] [id number] Hypertensi on, unspecifie d type Problem Active [facility] Cardiac arrhythmia Abnormal heart rhythm Problem Active [facility] [id number] Anemia, unspecifie d type Problem Active [facility] Disorder of cardiovasc ular system Circulatio n problem Problem Active [facility] [id number] Peripheral edema Problem Active [facility] [id number] Tobacco use Problem Active [facility] [id number] Apnea Problem Active [facility] Allergies, Adverse Reactions, Alerts Allergy Name Allergy Type Status Severity Reaction(s) Onset Date Inactive Date Treating Clinician Comments Source ibuprofe n Propensi ty to adverse reaction to drug Active 814 00:00: 00 Kaiden Dawson ibuprofe n ibuprofe n Active swelling of lips [facility] Social History Social Habit Start Date Stop Date Quantity Comments Source History of Tobacco Use Current Smoker [facility] Sex Assigned At [facility] Smoking Status Start Date Stop Date Source Current Smoker 2021-02-10 00:00:00 [facility] Medications Ordered Medication Name Filled Medication Name Start Date Stop Date Current Medication? Ordering Clinician Indication Dosage Frequency Signature (SIG) Comments Components Source diclofenac 1 % topical gel 11-28 00:00: 00 Yes 1% Kaiden Dawson amoxicillin 875 mg-potassiu jerrod clavulanate 125 mg tablet 11-28 00:00: 00 Yes 1mg Kaiden Dawson cyclobenzap rine 10 mg tablet 11-28 00:00: 00 Yes 1mg Kaiden Dawson metoprolol tartrate 25 mg tablet - 00:00: 00 Yes mg Kaiden Dawson lisinopril 20 mg tablet - 00:00: 00 Yes 1mg Kaiden Dawson metformin ER 500 mg tablet,exte nded release 24 hr - 00:00: 00 Yes 2mg Kaiden Dawson cetirizine 10 mg tablet -16 00:00: 00 Yes 1mg Kaiden Dawson Farxiga 10 mg tablet 7-15 00:00: 00 Yes 1mg Kaiden Dawson metoprolol tartrate 25 mg tablet 2-17 00:00: 00 Yes mg Kaiden Dawson cetirizine 10 mg tablet 06-27 00:00: 00 Yes 1mg Kaiden Dawson lisinopril 20 mg tablet 06-27 00:00: 00 Yes 1mg Kaiden Dawson metformin ER 500 mg tablet,exte nded release 24 hr - 00:00: 00 Yes 2mg Kaiden Dawson metoprolol tartrate 25 mg tablet 05-24 00:00: 00 Yes mg Kaiden Dawson cetirizine 10 mg tablet 05-24 00:00: 00 Yes 1mg Kaiden Dawson lisinopril 20 mg tablet 05-24 00:00: 00 Yes 1mg Kaiden Dawson metformin ER 500 mg tablet,exte nded release 24 hr 05-24 00:00: 00 Yes 2mg Kaiden Dawson metoprolol tartrate 25 mg tablet 2023-05 00:00: 00 Yes mg Kaiden Dawson terbinafine HCl 1 % topical cream 2023-05 00:00: 00 Yes 1% Kaiden Dawson cetirizine 10 mg tablet 2023-05 00:00: 00 Yes 1mg Kaiden Dawson lisinopril 20 mg tablet 2023-05 00:00: 00 Yes 1mg Kaiden Dawson terbinafine HCl 250 mg tablet 2023-05 00:00: 00 Yes 1mg Kaiden Dawson metformin ER 500 mg tablet,exte nded release 24 hr 2023-05 00:00: 00 Yes 2mg Kaiden Dawson rosuvastati n 5 mg tablet 2023-05 00:00: 00 Yes 1mg Kaiden Dawson rosuvastati n 5 mg tablet 12-22 00:00: 00 Yes 1mg Kaiden Dawson lidocaine 4 % topical patch 12-22 00:00: 00 Yes 1% Kaiden Dawson metformin 1,000 mg tablet 12-22 00:00: 00 Yes 1mg Kadien Dawson metoprolol tartrate 25 mg tablet 12-22 [...] Metformin HCl 01-08 00:00: 00 Yes Orin Millender 1 tablet with a meal [facility] metFORMIN HCl 1000 MG metFORMIN HCl 1000 MG 01-08 00:00: 00 No 1{table t_with_ a_meal} QD metFORMIN HCl 1000 MG metFORMIN HCl 1000 MG metFORMIN HCl 1000 MG 01-08 00:00: 00 No 1{table t_with_ a_meal} QD metFORMIN HCl 1000 MG Lisinopril Lisinopril Yes Orin Millender 1 tablet [facility] MetFORMIN HCl ER (MOD) MetFORMIN HCl ER (MOD) Yes Orin Millender 1 tablet [facility] Metoprolol Succinate Metoprolol Succinate Yes Orin Millender 1 capsule [facility] Symbicort Symbicort Yes Orin Millender 2 puffs [facility] Xopenex HFA Xopenex HFA Yes Orin Millender 1 puff as needed [facility] Furosemide Furosemide Yes Orin Millender 1 tablet as needed for swelling [facility] ProAir HFA ProAir HFA Yes Orin Millender 2 puffs as needed [facility] Lisinopril 10 MG Lisinopril 10 MG [...] blood pressure systolic 2021-02-11 13:20:00 134 mm[Hg] [facility] blood pressure diastolic 2021-02-11 13:20:00 74 mm[Hg] [facility] height 2021-02-11 13:20:00 64.00 [in_i] Com mon [facility] weight 2021-02-11 13:20:00 425 [lb_av] Comm on [facility] temperature 2021-02-11 13:20:00 97.2 [degF] Com [facility] bmi 2021-02-11 13:20:00 72.94 kg/m2 Comm on [facility] oximetry 2021-02-11 13:20:00 97 % Commo n [facility] respiratory rate 2021-02-11 13:20:00 20 /min [facility] height 2020-08-30 15:20:00 64.00 [in_i] Com [facility] weight 2020-08-30 15:20:00 430 [lb_av] Comm on [facility] temperature 2020-08-30 15:20:00 97.5 [degF] Com [facility] bmi 2020-08-30 15:20:00 73.8 kg/m2 Commo n [facility] oximetry 2020-08-30 15:20:00 97 % Commo n [facility] respiratory rate 2020-08-30 15:20:00 15 /min [facility] blood pressure systolic 2020-08-30 15:20:00 120 mm[Hg] [facility] blood pressure diastolic 2020-08-30 15:20:00 80 mm[Hg] [facility] BP Systolic 2024-11-28 15:40:00 122 mm[Hg] Rubio Dawson BP Diastolic 2024-11-28 15:40:00 80 mm[Hg] Mit[place] Dawson Weight Measured 2024-11-28 15:40:00 403.40 pounds Kaiden Dawson Height Measured 2024-11-28 15:40:00 65.00 inches Kaiden Dawson Body Temperature 2024-11-28 15:40:00 97.90 degrees Kaiden Dawson Heart Rate 2024-11-28 15:40:00 88.00 /min Miriam brett Coronel Samir Respiratory Rate 2024-11-28 15:40:00 Kaiden Dawson BP Systolic 2024-11-22 16:59:00 128 mm[Hg] Step hen F Samir BP Diastolic 2024-11-22 16:59:00 82 mm[Hg] Mitchel phen F Samir Weight Measured 2024-11-22 16:59:00 395.40 pounds Kaiden F Samir Height Measured 2024-11-22 16:59:00 65.00 inches Kaiden F Samir Body Temperature 2024-11-22 16:59:00 98.10 degrees Kaiden F Samir Heart Rate 2024-11-22 16:59:00 97.00 /min Miriam en F Samir Respiratory Rate 2024-11-22 16:59:00 18.00 /min Kaiden F Samir BP Systolic 2024-03-28 10:29:00 123 mm[Hg] Step hen F Samir BP Diastolic 2024-03-28 10:29:00 70 mm[Hg] Mitchel phen F Samir Weight Measured 2024-03-28 10:29:00 400.60 pounds Kaiden F Samir Height Measured 2024-03-28 10:29:00 65.00 inches Kaiden F Samir Body Temperature 2024-03-28 10:29:00 97.80 degrees Kaiden F Samir Heart Rate 2024-03-28 10:29:00 96.00 /min Miriam en F Samir Respiratory Rate 2024-03-28 10:29:00 Kaiden F Samir BP Systolic 2023-12-23 17:42:00 146 mm[Hg] Step [...] 2023-12-23 17:27:00 85 mm[Hg] [place] phen F Samir Weight Measured 2023-12-23 17:27:00 411.00 pounds Kaiden [...] Respiratory Rate 2023-10-07 13:51:00 Kaiden F Samir BP Systolic 2023-10-07 13:34:00 129 mm[Hg] Step hen F Samir BP Diastolic 2023-10-07 13:34:00 77 mm[Hg] [place] phen F Samir Weight Measured 2023-10-07 13:34:00 399.40 pounds Kaiden F Samir Height Measured 2023-10-07 13:34:00 65.00 inches Kaiden F Samir Body Temperature 2023-10-07 13:34:00 97.70 degrees Kaiden F Samir Heart Rate 2023-10-07 13:34:00 91.00 /min Miriam en F Samir Respiratory Rate 2023-10-07 13:34:00 18.00 /min Kaiden F Samir Heart Rate 2023-09-23 14:17:00 100.00 [...] End Date/Time Encounter Type Admission Type Attending Clinicians Care Facility Care Department Encounter ID Source 2021-09-09 11:46:00 Outpatient Praveena Santana [facility] [id number] [facility] 2021-06-05 13:55:56 Outpatient Praveena Santana [facility] [id number] [facility] 2021-06-05 12:40:15 Outpatient Praveena Santana [facility] [id number] [facility] 2021-06-05 12:24:00 Outpatient [facility] [id number] [facility] 2021-06-05 11:42:03 Outpatient Orin Briscoe [facility] [id number] [facility] 2021-06-05 11:14:01 Outpatient Orin Briscoe [facility] [id number] [facility] 2024-11-28 15:39:07 2024-11-28 15:39:07 Outpatient [facility] [id number] Kaiden Dawson 2024-11-28 00:00:00 2024-11-28 00:00:00 Outpatient Visit [facility] [id number] Kaiden Dawson 2024-11-22 16:45:25 2024-11-22 16:45:25 Outpatient S[facility] [id number] Kaiden Dawson 2024-11-22 00:00:00 2024-11-22 00:00:00 Outpatient Visit SFA [id number] Kaiden Dawson 2024-06-27 13:13:35 2024-06-27 13:13:35 Outpatient SFA SFA [id number] Kaiden Dawson 2024-06-27 00:00:00 2024-06-27 00:00:00 Outpatient Visit SFA [id number] Kaiden Dawson 2024-05-24 00:00:00 2024-05-24 00:00:00 Outpatient Visit SFA [id number] Kaiden Dawson 2024-03-28 10:13:26 2024-03-28 10:13:26 Outpatient SFA [facility] [id number] Kaiden Dawson 2024-03-28 00:00:00 2024-03-28 00:00:00 Outpatient Visit SFA [id number] Kaiden Dawson 2023-12-23 17:24:49 2023-12-23 17:24:49 Outpatient SFA SFA [id number] Kaiden Dawson 2023-12-23 00:00:00 2023-12-23 00:00:00 Outpatient Visit SFA [id number] Kaiden Dawson 2023-10-07 13:33:55 2023-10-07 13:33:55 Outpatient SFA SFA [id number] Kaiden Dawson 2023-10-07 00:00:00 2023-10-07 00:00:00 Outpatient Visit SFA [id number] Kaiden Dawson 2023-09-23 13:37:26 2023-09-23 13:37:26 Outpatient SFA SFA [id number] Kaiden Dawson 2023-09-23 00:00:00 2023-09-23 00:00:00 Outpatient Visit SFA [id number] Kaiden Dawson 2023-06-25 17:13:30 2023-06-25 17:13:30 Outpatient SFA SFA [id number] Kaiden Dawson 2021-05-09 00:00:00 2021-05-09 00:00:00 (TEL) [facility]C ST[facility] [id number] [facility] 2021-02-21 00:00:00 2021-02-21 00:00:00 (TEL) STLMLC STLMLC [id number] [facility] 2021-02-11 00:00:00 2021-02-11 00:00:00 OFFICE VISIT EST PT LEVEL 3 STL[facility] STL[facility] [id number] [facility] 2021 00:00:00 2021 00:00:00 (TEL) STLMLC STLMLC [id number] [facility] 2020-11-29 00:00:00 2020-11-29 00:00:00 (TEL) STLMLC STLMLC [id number] [facility] 2020-08-30 00:00:00 2020-08-30 00:00:00 OFFICE VISIT EST PT LEVEL 3 STLMLC STLMLC [id number] [facility] 2020-06-06 00:00:00 2020-06-06 00:00:00 (TEL) STLMLC STLMLC [id number] [facility] 2020-01-09 11:40:00 2020-01-09 11:40:00 Outpatient [facility] [id number] [facility] 2020-01-09 00:00:00 2020-01-09 00:00:00 Outpatient [facility] [id number] [facility] 2019-08-04 14:56:00 2019-08-04 14:56:00 Outpatient [facility] [id number] [facility] 2019-07-25 11:00:00 2019-07-25 11:00:00 Outpatient [facility] [id number] [facility] 2019-07-20 13:53:00 2019-07-20 13:53:00 Outpatient [facility] [id number] [facility] 2018-09-17 08:05:00 2018-09-17 08:05:00 Outpatient [facility] [id number] [facility] 2018-09-03 14:00:00 2018-09-03 14:00:00 Outpatient [facility] [id number] [facility] Results Test Description Test Time Test Comments Results Result Co mments Source Kaiden Coronel AustinLIPID [id number] 00:00:00* Test Item Value Reference Range Interpretation Comme nts CHOLESTEROL (test code = 2210) 149 MG/DL TRIGLYCERIDES (test code = 2232) 109 MG/DL HDL CHOLESTEROL (test code = 2220) 31 MG/DL CALC LDL CHOL (test code = 2237) 97 MG/DL RISK RATIO LDL/HDL (test cod e = 2238) 3.13 RATIO Kaiden DawsonCOMPREHENSIVE METABOLIC [id number] 00:00:00* Test Item Value Reference Range Interpretation Comme nts GLUCOSE (test code = 2217) 170 MG/DL BUN (test code = 2208) 10 MG/DL CREATININE (test code = 2214) 0.49 MG/DL eGFR (2020 CKD-EPI) (test code = 59042) 121 ML/MIN/1.73 CALC BUN/CREAT (test code = 2235) 20 RATIO SODIUM (test code = 2231) 138 MEQ/L POTASSIUM (test code = 2228) 4.5 MEQ/L CHLORIDE (test code = 2215) 103 MEQ/L CARBON DIOXIDE (test code = 2206) 24 MEQ/L CALCIUM (test code = 2209) 9.0 MG/DL PROTEIN, TOTAL (test code = 2229) 6.5 G/DL ALBUMIN (test code = 2201) 4.0 G/DL CALC GLOBULIN (test code = 2240) 2.5 G/DL CALC A/G RATIO (test code = 2234) 1.6 RATIO BILIRUBIN, TOTAL (test code = 2207) 0.5 MG/DL ALKALINE PHOSPHATASE (test code = 2204) 72 U/L AST (test code = 2218) 10 U/L ALT (test code = 2219) 11 U/L Kaiden DawsonHEMOGLOBIN [id number] 00:00:00* Test Item Value Reference Range Interpretation Comme nts HEMOGLOBIN A1c (test code = 46585) 7.8 % Kaiden Coronel AustinLIPID [id number] 00:00:00* Test Item Value Reference Range Interpretation Comme nts CHOLESTEROL (test code = 2210) 149 MG/DL TRIGLYCERIDES (test code = 2232) 109 MG/DL HDL CHOLESTEROL (test code = 2220) 31 MG/DL CALC LDL CHOL (test code = 2237) 97 MG/DL RISK RATIO LDL/HDL (test cod e = 2238) 3.13 RATIO Kaiden DawsonCOMPREHENSIVE METABOLIC [id number] 00:00:00* Test Item Value Reference Range Interpretation Comme nts GLUCOSE (test code = 2217) 170 MG/DL BUN (test code = 2208) 10 MG/DL CREATININE (test code = 2214) 0.49 MG/DL eGFR (2020 CKD-EPI) (test code = 55668) 121 ML/MIN/1.73 CALC BUN/CREAT (test code = 2235) 20 RATIO SODIUM (test code = 2231) 138 MEQ/L POTASSIUM (test code = 2228) 4.5 MEQ/L CHLORIDE (test code = 2215) 103 MEQ/L CARBON DIOXIDE (test code = 2206) 24 MEQ/L CALCIUM (test code = 2209) 9.0 MG/DL PROTEIN, TOTAL (test code = 2229) 6.5 G/DL ALBUMIN (test code = 2201) 4.0 G/DL CALC GLOBULIN (test code = 2240) 2.5 G/DL CALC A/G RATIO (test code = 2234) 1.6 RATIO BILIRUBIN, TOTAL (test code = 2207) 0.5 MG/DL ALKALINE PHOSPHATASE (test code = 2204) 72 U/L AST (test code = 2218) 10 U/L ALT (test code = 2219) 11 U/L Kaiden DawsonHEMOGLOBIN [id number] 00:00:00* Test Item Value Reference Range Interpretation Comme nts HEMOGLOBIN A1c (test code = 53377) 7.8 % Kaiden Coronel AustinLIPID [id number] 00:00:00* Test Item Value Reference Range Interpretation Comme nts CHOLESTEROL (test code = 2210) 149 MG/DL TRIGLYCERIDES (test code = 2232) 109 MG/DL HDL CHOLESTEROL (test code = 2220) 31 MG/DL CALC LDL CHOL (test code = 2237) 97 MG/DL RISK RATIO LDL/HDL (test cod e = 2238) 3.13 RATIO Kaiden DawsonCOMPREHENSIVE METABOLIC [id number] 00:00:00* Test Item Value Reference Range Interpretation Comme nts GLUCOSE (test code = 2217) 170 MG/DL BUN (test code = 2208) 10 MG/DL CREATININE (test code = 2214) 0.49 MG/DL eGFR (2020 CKD-EPI) (test code = 60859) 121 ML/MIN/1.73 CALC BUN/CREAT (test code = 2235) 20 RATIO SODIUM (test code = 2231) 138 MEQ/L POTASSIUM (test code = 2228) 4.5 MEQ/L CHLORIDE (test code = 2215) 103 MEQ/L CARBON DIOXIDE (test code = 2206) 24 MEQ/L CALCIUM (test code = 2209) 9.0 MG/DL PROTEIN, TOTAL (test code = 2229) 6.5 G/DL ALBUMIN (test code = 2201) 4.0 G/DL CALC GLOBULIN (test code = 2240) 2.5 G/DL CALC A/G RATIO (test code = 2234) 1.6 RATIO BILIRUBIN, TOTAL (test code = 2207) 0.5 MG/DL ALKALINE PHOSPHATASE (test code = 2204) 72 U/L AST (test code = 2218) 10 U/L ALT (test code = 2219) 11 U/L Kaiden DawsonHEMOGLOBIN [id number] 00:00:00* Test Item Value Reference Range Interpretation Comme nts HEMOGLOBIN A1c (test code = 51523) 7.8 % Kaiedn DawsonLIPID [id number] 00:00:00* Test Item Value Reference Range Interpretation Comme nts CHOLESTEROL (test code = 2210) 149 MG/DL TRIGLYCERIDES (test code = 2232) 109 MG/DL HDL CHOLESTEROL (test code = 2220) 31 MG/DL CALC LDL CHOL (test code = 2237) 97 MG/DL RISK RATIO LDL/HDL (test cod e = 2238) 3.13 RATIO Kaiden DawsonCOMPREHENSIVE METABOLIC [id number] 00:00:00* Test Item Value Reference Range Interpretation Comme nts GLUCOSE (test code = 2217) 170 MG/DL BUN (test code = 2207) 10 MG/DL CREATININE (test code = 2214) 0.49 MG/DL eGFR (2020 CKD-EPI) (test code = ) 121 ML/MIN/1.73 CALC BUN/CREAT (test code = 2234) 20 RATIO SODIUM (test code = 2231) 138 MEQ/L POTASSIUM (test code = 2228) 4.5 MEQ/L CHLORIDE (test code = 2215) 103 MEQ/L CARBON DIOXIDE (test code = 2206) 24 MEQ/L CALCIUM (test code = 2209) 9.0 MG/DL PROTEIN, TOTAL (test code = 2228) 6.5 G/DL ALBUMIN (test code = 2200) 4.0 G/DL CALC GLOBULIN (test code = 0) 2.5 G/DL CALC A/G RATIO (test code = 2233) 1.6 RATIO BILIRUBIN, TOTAL (test code = 2206) 0.5 MG/DL ALKALINE PHOSPHATASE (test code = 2203) 72 U/L AST (test code = 2217) 10 U/L ALT (test code = 2218) 11 U/L Kaiden DawsonALBUMIN/CREATININE RATIO, URINE, [id number] 06:56:22* Test Item Value Reference Range Interpretation Comme nts CREATININE, URINE, CONC. (test code = 2071) 107.2 MG/DL NOT ESTAB ALBUMIN, URINE, RANDOM (test code = 82106) 5.2 MG/DL NOT ESTAB CALC ALBUMIN/CREAT, RND (test code = 48690) 49 MG/G <30 H Note: Albumin/Cr eatinine ratio reference interval reflects ADA and NKF guidelines. UNLESS OTHERWISE INDICATED, ALL TESTING PERFORMED AT [facility] [address] [place] [address] [employer] OPERATOR: JULIANA SALDAÑA M.D. CLIA NUMBER [id number] [facility] [place]. [id number] LIPID [id number] 05:22:09* Test Item Value Reference Range Interpretation Comme nts CHOLESTEROL (test code = 221) 168 MG/DL <200 TRIGLYCERIDES (test code = 2232) 144 MG/DL <150 HDL CHOLESTEROL (test code = 2219) 32 MG/DL >39 L CALC LDL CHOL (test code = 2237) 110 MG/DL <100 H NOTE: CALCULATED LDL IS BASED ON JAERT-ARAUZ METHOD WHICHINCLUDES ADJUSTABLE TRIGLYCERIDE:VLDL CHOLESTEROL RATIO.THIS FACTOR VARIES BY MEASURED TRIGLYCERIDE AND NON-HDLCHOLESTEROL CONCENTRATIONS WITH INCREASED CALCULATED LDL SEENIN HIGHER TRIGLYCERIDE OR LOWER NON-HDL SPECIMENS. FOR MOREINFORMATION, SEE CLIENT ANNOUNCEMENT AT [email or web address] RISK RATIO LDL/HDL (test code = 2237) 3.44 RATIO <3.22 H COMPREHENSIVE METABOLIC [id number] 05:22:09* Test Item Value Reference Range Interpretation Comme nts GLUCOSE (test code = 2216) 256 MG/DL 70-99 H BUN (test code = 2207) 8 MG/DL 6-20 CREATININE (test code = 2213) 0.45 MG/DL 0.60-1.30 L eGFR (2020 CKD-EPI) (test code = 02985) 125 ML/MIN/1.73 >60 CALC BUN/CREAT (test code = 2234) 18 RATIO 6-28 SODIUM (test code = 2230) 140 MEQ/L 133-146 POTASSIUM (test code = 8) 4.5 MEQ/L 3.5-5.4 CHLORIDE (test code = 5) 101 MEQ/L 95-107 CARBON DIOXIDE (test code = 2206) 26 MEQ/L 19-31 CALCIUM (test code = 2209) 9.0 MG/DL 8.5-10.5 PROTEIN, TOTAL (test code = 2228) 6.7 G/DL 6.1-8.3 ALBUMIN (test code = 2200) 3.9 G/DL 3.5-5.2 CALC GLOBULIN (test code = 2240) 2.8 G/DL 1.9-3.7 CALC A/G RATIO (test code = 223) 1.4 RATIO 1.0-2.6 BILIRUBIN, TOTAL (test code = 2206) 0.6 MG/DL <=1.2 ALKALINE PHOSPHATASE (test code = 2203) 93 U/L 40-112 AST (test code = 2218) 13 U/L 9-40 ALT (test code = 2219) 14 U/L 5-40 HEMOGLOBIN [id number] 03:26:04* Test Item Value Reference Range Interpretation Comme nts HEMOGLOBIN A1c (test code = 55804) 8.0 % 4.2-5.6 H [employer] GUIDELINES FOR HGB A1C: [...] CONSIDER ALTERNATE TESTING OR LABORATORY CONSULTATION. HEMOGLOBIN [id number] 00:00:00* Test Item Value Reference Range Interpretation Comme [facility] HEMOGLOBIN A1c (test code = 49314) 8.0 % Kaiden DawsonLIPID [id number] 00:00:00* Test Item Value Reference Range Interpretation Comme nts CHOLESTEROL (test code = 2210) 168 MG/DL TRIGLYCERIDES (test code = 2232) 144 MG/DL HDL CHOLESTEROL (test code = 2220) 32 MG/DL CALC LDL CHOL (test code = 2237) 110 MG/DL RISK RATIO LDL/HDL (test cod e = 2238) 3.44 RATIO Kaiden DawsonCOMPREHENSIVE METABOLIC [id number] 00:00:00* Test Item Value Reference Range Interpretation Comme nts GLUCOSE (test code = 2217) 256 MG/DL BUN (test code = 2208) 8 MG/DL CREATININE (test code = 2214) 0.45 MG/DL eGFR (2020 CKD-EPI) (test code = 28939) 125 ML/MIN/1.73 CALC BUN/CREAT (test code = [...] 2219) 14 U/L Kaiden DawsonALBUMIN/CREATININE RATIO, RANDOM [id number] 00:00:00* Test Item Value Reference Range Interpretation Comme [facility] CREATININE, URINE, CONC. (te st code = 2072) 107.2 MG/DL ALBUMIN, URINE, RANDOM (test code = 01436) 5.2 MG/DL CALC ALBUMIN/CREAT, RND (delta t code = 47587) 49 MG/G Kaiden DawsonHEMOGLOBIN [id number] 00:00:00* Test Item Value Reference Range Interpretation Comme [facility] HEMOGLOBIN A1c (test code = 85137) 8.0 % Kaiden DawsonLIPID [id number] 00:00:00* Test Item Value Reference Range Interpretation Comme nts CHOLESTEROL (test code = 2210) 168 MG/DL TRIGLYCERIDES (test code = 2232) 144 MG/DL HDL CHOLESTEROL (test code = 2220) 32 MG/DL CALC LDL CHOL (test code = 2237) 110 MG/DL RISK RATIO LDL/HDL (test cod e = 2238) 3.44 RATIO Kaiden DawsonCOMPREHENSIVE METABOLIC [id number] 00:00:00* Test Item Value Reference Range Interpretation Comme nts GLUCOSE (test code = 2217) 256 MG/DL BUN (test code = 2208) 8 MG/DL CREATININE (test code = 2214) 0.45 MG/DL eGFR (2020 CKD-EPI) (test code = 00429) 125 ML/MIN/1.73 CALC BUN/CREAT (test code = [...] 2219) 14 U/L Kaiden DawsonALBUMIN/CREATININE RATIO, RANDOM [id number] 00:00:00* Test Item Value Reference Range Interpretation Comme [facility]ocrates CREATININE, URINE, CONC. (te st code = 2072) 107.2 MG/DL ALBUMIN, URINE, RANDOM (test code = 47414) 5.2 MG/DL CALC ALBUMIN/CREAT, RND (delta t code = 39969) 49 MG/G Kaiden DawsonHEMOGLOBIN [id number] 00:00:00* Test Item Value Reference Range Interpretation Comme socrates HEMOGLOBIN A1c (test code = 66805) 8.0 % Kaiden DawsonLIPID [id number] 00:00:00* Test Item Value Reference Range Interpretation Comme nts CHOLESTEROL (test code = 2210) 168 MG/DL TRIGLYCERIDES (test code = 2232) 144 MG/DL HDL CHOLESTEROL (test code = 2220) 32 MG/DL CALC LDL CHOL (test code = 2237) 110 MG/DL RISK RATIO LDL/HDL (test cod e = 2238) 3.44 RATIO Kaiden DawsonCOMPREHENSIVE METABOLIC [id number] 00:00:00* Test Item Value Reference Range Interpretation Comme nts GLUCOSE (test code = 2217) 256 MG/DL BUN (test code = 2208) 8 MG/DL CREATININE (test code = 2214) 0.45 MG/DL eGFR (2020 CKD-EPI) (test code = 45950) 125 ML/MIN/1.73 CALC BUN/CREAT (test code = [...] 2219) 14 U/L Kaiden DawsonALBUMIN/CREATININE RATIO, RANDOM [id number] 00:00:00* Test Item Value Reference Range Interpretation Comme nts CREATININE, URINE, CONC. (te st code = 2072) 107.2 MG/DL ALBUMIN, URINE, RANDOM (test code = 16996) 5.2 MG/DL CALC ALBUMIN/CREAT, RND (delta t code = 55343) 49 MG/G Kaiden DawsonHEMOGLOBIN [id number] 00:00:00* Test Item Value Reference Range Interpretation Comme socrates HEMOGLOBIN A1c (test code = 06568) 8.0 % Kaiden DawsonLIPID [id number] 00:00:00* Test Item Value Reference Range Interpretation Comme nts CHOLESTEROL (test code = 2210) 168 MG/DL TRIGLYCERIDES (test code = 2232) 144 MG/DL HDL CHOLESTEROL (test code = 2220) 32 MG/DL CALC LDL CHOL (test code = 2237) 110 MG/DL RISK RATIO LDL/HDL (test cod e = 2238) 3.44 RATIO Kaiden DawsonCOMPREHENSIVE METABOLIC [id number] 00:00:00* Test Item Value Reference Range Interpretation Comme nts GLUCOSE (test code = 2217) 256 MG/DL BUN (test code = 2208) 8 MG/DL CREATININE (test code = 2214) 0.45 MG/DL eGFR (2020 CKD-EPI) (test code = 95301) 125 ML/MIN/1.73 CALC BUN/CREAT (test code = [...] (test code = 2219) 14 U/L Kaiden Coronel AustinALBUMIN/CREATININE RATIO, RANDOM [id number] 00:00:00* Test Item Value Reference Range Interpretation Comme socrates CREATININE, URINE, CONC. (te st code = 2072) 107.2 MG/DL ALBUMIN, URINE, RANDOM (test code = 72536) 5.2 MG/DL CALC ALBUMIN/CREAT, RND (delta t code = 49874) 49 MG/G Kaiden DawsonHEMOGLOBIN [id number] 00:00:00* Test Item Value Reference Range Interpretation Comme socrates HEMOGLOBIN A1c (test code = 60869) 8.0 % Kaiden DawsonLIPID [id number] 00:00:00* Test Item Value Reference Range Interpretation Comme nts CHOLESTEROL (test code = 2210) 168 MG/DL TRIGLYCERIDES (test code = 2232) 144 MG/DL HDL CHOLESTEROL (test code = 2220) 32 MG/DL CALC LDL CHOL (test code = 2237) 110 MG/DL RISK RATIO LDL/HDL (test cod e = 2238) 3.44 RATIO Kaiden DawsonCOMPREHENSIVE METABOLIC [id number] 00:00:00* Test Item Value Reference Range Interpretation Comme nts GLUCOSE (test code = 2217) 256 MG/DL BUN (test code = 2208) 8 MG/DL CREATININE (test code = 2214) 0.45 MG/DL eGFR (2020 CKD-EPI) (test code = 75836) 125 ML/MIN/1.73 CALC BUN/CREAT (test code = [...] (test code = 2219) 14 U/L Kaiden Coronel AustinALBUMIN/CREATININE RATIO, RANDOM [id number] 00:00:00* Test Item Value Reference Range Interpretation Comme nts CREATININE, URINE, CONC. (te st code = 2072) 107.2 MG/DL ALBUMIN, URINE, RANDOM (test code = 42964) 5.2 MG/DL CALC ALBUMIN/CREAT, RND (delta t code = 85670) 49 MG/G Kaiden DawsonHEMOGLOBIN [id number] 00:00:00* Test Item Value Reference Range Interpretation Comme socrates HEMOGLOBIN A1c (test code = 19276) 8.0 % Kaiden DawsonLIPID [id number] 00:00:00* Test Item Value Reference Range Interpretation Comme nts CHOLESTEROL (test code = 2210) 168 MG/DL TRIGLYCERIDES (test code = 2232) 144 MG/DL HDL CHOLESTEROL (test code = 2220) 32 MG/DL CALC LDL CHOL (test code = 2237) 110 MG/DL RISK RATIO LDL/HDL (test cod e = 2238) 3.44 RATIO Kaiden DawsonCOMPREHENSIVE METABOLIC [id number] 00:00:00* Test Item Value Reference Range Interpretation Comme nts GLUCOSE (test code = 2217) 256 MG/DL BUN (test code = 2208) 8 MG/DL CREATININE (test code = 2214) 0.45 MG/DL eGFR (2020 CKD-EPI) (test code = 81172) 125 ML/MIN/1.73 CALC BUN/CREAT (test code = [...] 2219) 14 U/L Kaiden DawsonALBUMIN/CREATININE RATIO, RANDOM [id number] 00:00:00* Test Item Value Reference Range Interpretation Comme nts CREATININE, URINE, CONC. (te st code = 2072) 107.2 MG/DL ALBUMIN, URINE, RANDOM (test code = 78663) 5.2 MG/DL CALC ALBUMIN/CREAT, RND (delta t code = 27958) 49 MG/G Kaiden DawsonHEMOGLOBIN [id number] 00:00:00* Test Item Value Reference Range Interpretation Comme socrates HEMOGLOBIN A1c (test code = 53673) 8.0 % Kaiden DawsonLIPID [id number] 00:00:00* Test Item Value Reference Range Interpretation Comme nts CHOLESTEROL (test code = 2210) 168 MG/DL TRIGLYCERIDES (test code = 2232) 144 MG/DL HDL CHOLESTEROL (test code = 2220) 32 MG/DL CALC LDL CHOL (test code = 2237) 110 MG/DL RISK RATIO LDL/HDL (test cod e = 2238) 3.44 RATIO Kaiden DawsonCOMPREHENSIVE METABOLIC [id number] 00:00:00* Test Item Value Reference Range Interpretation Comme nts GLUCOSE (test code = 2217) 256 MG/DL BUN (test code = 2208) 8 MG/DL CREATININE (test code = 2214) 0.45 MG/DL eGFR (2020 CKD-EPI) (test code = 57494) 125 ML/MIN/1.73 CALC BUN/CREAT (test code = [...] 2219) 14 U/L Kaiden DawsonALBUMIN/CREATININE RATIO, RANDOM [id number] 00:00:00* Test Item Value Reference Range Interpretation Comme nts CREATININE, URINE, CONC. (te st code = 2072) 107.2 MG/DL ALBUMIN, URINE, RANDOM (test code = 99054) 5.2 MG/DL CALC ALBUMIN/CREAT, RND (delta t code = 48845) 49 MG/G Kaiden DaswonHEMOGLOBIN [id number] 00:00:00* Test Item Value Reference Range Interpretation Comme nts A1C (test code = 4548-4) 8.3% HEMOGLOBIN A1C* Test Item Value Reference Range Interpretation Comme nts A1C (test code = 4548-4) 8.2 Notes Date/Time Note Provider Source [facility]2025-07-15 00:00:00 [facility]2025-02-17 00:00:00 [facility]2025-01-14 00:00:00 [facility]2024-11-18 00:00:00 [facility]2024-08-14 00:00:00 [facility]2024-05-29 00:00:00 [facility]2024-05-15 00:00:00 [facility]
[2024-12-12] MEDS ORDERED: NA CHLORIDE 0.9% 500 ML ONE (22:40)
[2024-12-12 23:22] LABS: Absolute Lymphocytes (CBC) 1.5 K/uL (0.7-4.9); Hematocrit 35.6 % (36.0-45.0); Hemoglobin 11.1 g/dL (12.0-15.0); MCH 21.4 pg (27.0-35.0); MCHC 31.0 g/dL (32.0-36.0); MCV 69.0 fL (80-100); MPV 8.7 fL (7.6-11.3); Nucleated RBC Absolute Count 0.1 (0-0); Nucleated Red Blood Cells % 0.9 % (0-0); PT Prothrombin Time 13.2 SECONDS (10-13.0); Protime INR 1.17; RBC Red Blood Cell Count 5.17 M/uL (3.86-4.86); White Blood Count 6.60 thou/uL (4.3-10.9)
[2024-12-12 23:32] LABS: Urine Culture Reflex Order REFLEXED; Urine Microscopic Reflex YN ORDER UMIC; Urine Yeast (Budding) Trace /HPF (None Seen)
[2024-12-12 23:35] LABS: ALT/SGPT 20 U/L (13-56); Albumin 3.2 g/dL (3.4-5.0); Albumin/Globulin Ratio 0.9 (1.1-1.8); Alkaline Phosphatase 82 U/L (45-117); Anion Gap 7.8 mEq/L (5.0-15.0); BUN Blood Urea Nitrogen 11 mg/dL (7-18); Bilirubin Indirect, Calculated 0.4 mg/dL (0.2-0.8); Globulin 3.5 g/dL (2.3-3.5); Glucose Level 258 mg/dL (74-106); Magnesium 1.9 mg/dL (1.6-2.4); NT PRO-BNP 1002 pg/mL (<125); Potassium 3.8 mEq/L (3.5-5.1); Troponin High Sensitivity 20.5 pg/mL (<58.9)
[2024-12-12 23:37] LABS: Influenza A Ag Negative; Influenza B Ag Negative; SARS-CoV-2 Antigen Rapid Res Negative (Negative)
[2024-12-12 23:38] LABS: AST/SGOT < 10 U/L (15-37)
--- NOTE | 2024-12-12 23:49 | EDPHYS ---
Physician Documentation [facility] Name: Pretty Wilson Age: 39 yrs Sex: Female : 1985 Arrival Date: 12/12/2024 Time: 22:10 Bed 20 Private MD: ED Physician Daniel Sánchez HPI: 12/12 23:30 This 39 yrs old Female presents to ER via Ambulatory with complaints of melissa Breathing Difficulty. 23:30 The patient has shortness of breath at rest, with light activity. Onset: The melissa symptoms/episode began/occurred 2 day(s) ago. Duration: The symptoms are continuous, and are steadily getting worse. The patient's shortness of breath is aggravated by coughing, exertion, light activity, supine position. Associated signs and symptoms: Pertinent positives: productive cough. Severity of symptoms: At their worst the symptoms were moderate this morning, in the emergency department the symptoms have improved mildly. The patient has experienced similar episodes in the past, multiple times. 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 - Infectious Disease History:: Denies. - Social history:: Smoking status: Patient/guardian denies using tobacco, Patient/guardian denies using alcohol, street drugs. ROS: 23:36 Constitutional: Negative for fever, chills, and weight loss, Eyes: Negative for injury, melissa pain, redness, and discharge, ENT: Negative for injury, pain, and discharge, Neck: Negative for injury, pain, and swelling, Cardiovascular: Negative for chest pain, palpitations, and edema, Abdomen/GI: Negative for abdominal pain, nausea, vomiting, diarrhea, and constipation, Back: Negative for injury and pain, : Negative for injury, bleeding, discharge, and swelling, MS/Extremity: Negative for injury and deformity, Skin: Negative for injury, rash, and discoloration, Neuro: Negative for headache, weakness, numbness, tingling, and seizure, Psych: Negative for depression, anxiety, suicide ideation, homicidal ideation, and hallucinations, Allergy/Immunology: Negative for hives, rash, and allergies, Endocrine: Negative for neck swelling, polydipsia, polyuria, polyphagia, and marked weight changes, Hematologic/Lymphatic: Negative for swollen nodes, abnormal bleeding, and unusual bruising, 23:36 Respiratory: Positive for cough, shortness of breath, wheezing, inspiratory, expiratory, 23:36 : Positive for urinary symptoms, burning with urination, Exam: 23:36 Constitutional: This is a well developed, well nourished patient who is awake, alert, melissa and in no acute distress. Head/Face: Normocephalic, atraumatic. Eyes: Pupils equal round and reactive to light, extra-ocular motions intact. Lids and lashes normal. Conjunctiva and sclera are non-icteric and not injected. Cornea within normal limits. Periorbital areas with no swelling, redness, or edema. ENT: Nares patent. No nasal discharge, no septal abnormalities noted. Tympanic membranes are normal and external auditory canals are clear. Oropharynx with no redness, swelling, or masses, exudates, or evidence of obstruction, uvula midline. Mucous membranes moist. Neck: Trachea midline, no thyromegaly or masses palpated, and no cervical lymphadenopathy. Supple, full range of motion without nuchal rigidity, or vertebral point tenderness. No Meningismus. Chest/axilla: Normal chest wall appearance and motion. Nontender with no deformity. No lesions are appreciated. Abdomen/GI: Soft, non-tender, with normal bowel sounds. No distension or tympany. No guarding or rebound. No evidence of tenderness throughout. Back: No spinal tenderness. No costovertebral tenderness. Full range of motion. Skin: Warm, dry with normal turgor. Normal color with no rashes, no lesions, and no evidence of cellulitis. MS/ Extremity: Pulses equal, no cyanosis. Neurovascular intact. Full, normal range of motion., bilateral aka Neuro: Awake and alert, GCS 15, oriented to person, place, time, and situation. Cranial nerves II-XII grossly intact. Motor strength 5/5 in all extremities. Sensory grossly intact. Cerebellar exam normal. Normal gait. Psych: Awake, alert, with orientation to person, place and time. Behavior, mood, and affect are within normal limits. 23:36 Cardiovascular: Rate: tachycardic, actual rate is 111 bpm, Rhythm: regular, Pulses: Pulses are 4+ in bilateral radial, brachial, femoral, popliteal, posterior tibial and and dorsalis pedis arteries.. Heart sounds: normal, Edema: is not appreciated, JVD: is not appreciated, 23:36 ECG was reviewed by the Attending Physician. Vital Signs: 22:24 BP 143 / 99; Pulse 111; Resp 24 S; Temp 97.1; Pulse Ox 90% on R/A; Weight 181.44 kg; br2 Height 5 ft. 6 in. ; Pain 02/17; 12/13 00:02 BP 125 / 88; Pulse 98; Resp 20; Pulse Ox 97% on R/A; sd4 04:38 ss12 12/12 22:24 Body Mass Index 64.56 (181.44 kg, 167.64 cm) br2 12/12 22:24 Pain Scale: Adult br2 04:38 Pt refusing vital signs ss12 MDM: 12/12 22:19 Medical Screening Exam initiated [facility] 23:40 Differential diagnosis: Anemia Anxiety Reaction asthma, Bronchitis CHF exacerbation, melissa Chronic Obstructive Pulmonary Disease obstructed airway, tracheal injury, bronchitis, flu, URI, Myocardial Infarction pneumonia, Pneumothorax Psychogenic pulmonary edema, Pulmonary Embolism reactive airway disease, Sepsis Unstable Angina. Antibiotic administration: Levaquin given. Differential Diagnosis: Obstructed Airway Bronchitis Influenza Upper Respiratory Infection Sinusitis Pharyngitis Asthma Exacerbation Viral Syndrome Pneumonia. Data reviewed: vital signs, nurses notes, lab test result(s), EKG, radiologic studies, CT scan, plain films. Consideration of Admission/Observation Patient was admitted/placed on observation. Escalation of care including admission/observation considered. I considered the following discharge prescriptions or medication management in the emergency department Medications were administered in the Emergency Department. See MAR. Independent interpretation of the following test(s) in the Emergency Department EKG: See my EKG interpretation above. Test considered but Not performed: Ultrasound no 2 d echo. Historians other than the Patient: pt well informed. Care significantly affected by the following chronic conditions: Diabetes, Hypertension, Congestive Heart Failure, Chronic Obstructive Pulmonary Disease, Obesity, Liver Disease. 23:50 Counseling: I had a detailed discussion with the patient and/or guardian regarding the [facility] historical points, exam findings, and any diagnostic results supporting the discharge/admit diagnosis, the presence of at least one elevated blood pressure reading (>120/80) during this emergency department visit, lab results, radiology results, the need for further work-up and treatment in the hospital. 12/13 02:06 Post IV fluid administration reassessment for Sepsis: Client not prescribed the 30 melissa mL/kg IVF due to: Lungs: Crackles noted. hx of chf. 12/12 22:20 Order name: Basic Metabolic Panel; Complete Time: 23:42 [facility] 12/12 22:20 Order name: CBC with Diff; Complete Time: 00:47 [facility] 12/12 22:20 Order name: LFT's; Complete Time: 23:42 [facility] 12/12 22:20 Order name: Magnesium; Complete Time: 23:42 [facility] 12/12 22:20 Order name: NT PRO-BNP; Complete Time: 23:42 [facility] 12/12 22:20 Order name: PT-INR; Complete Time: 23:27 [facility] 12/12 22:20 Order name: Troponin HS; Complete Time: 23:42 [facility] 12/12 22:20 Order name: COVID-19 Ag + Flu A+B Ag; Complete Time: 23:42 [facility] 12/12 22:20 Order name: UA Rfx Dano Cult if indicated; Complete Time: 23:35 [facility] 12/12 23:27 Order name: Blood Culture Adult (2) [facility] 12/12 23:27 Order name: Lactate w/ 2H reflex if indic.; Complete Time: 02:04 [facility] 12/12 23:32 Order name: CBC Smear Scan; Complete Time: 00:47 [facility] 12/12 23:37 Order name: Urine Culture EDMS 12/13 01:38 Order name: Ghost Lactate-NO COLLECT Timer EDMS 12/13 03:34 Order name: CBC with Automated Diff EDMS 12/13 03:34 Order name: CBC with Automated Diff EDMS 12/13 03:34 Order name: CBC with Automated Diff EDMS 12/13 03:34 Order name: CBC with Automated Diff EDMS 12/13 03:34 Order name: CBC with Automated Diff EDMS 12/13 03:34 Order name: Comprehensive Metabolic Panel EDMS 12/13 03:34 Order name: Comprehensive Metabolic Panel EDMS 12/13 03:34 Order name: Comprehensive Metabolic Panel EDMS 12/13 03:34 Order name: Comprehensive Metabolic Panel EDMS 12/13 03:34 Order name: Comprehensive Metabolic Panel EDMS 12/13 04:56 Order name: Lactate Sepsis 2 HR Follow-up [facility] 12/12 22:20 Order name: XRAY Chest (1 view) [facility] 12/12 23:34 Order name: CT Chest For PE Angio [facility] 12/12 22:20 Order name: Cardiac monitoring; Complete Time: 22:42 [facility] 12/12 22:20 Order name: EKG - Nurse/Tech; Complete Time: 22:42 [facility] 12/12 22:20 Order name: IV Saline Lock; Complete Time: 22:57 [facility] 12/12 22:20 Order name: Labs collected and sent; Complete Time: 22:56 [facility] 12/12 22:20 Order name: O2 Per Protocol; Complete Time: 22:43 [facility] 12/12 22:20 Order name: O2 Sat Monitoring; Complete Time: 22:43 [facility] 12/13 02:41 Order name: Misc. Order: strict bed rest [facility] EC/04 23:36 Rate is 104 beats/min. Rhythm is regular. QRS [place] is Normal. IA interval is normal. [facility] QRS interval is normal. QT interval is normal. No Q waves. T waves are Normal. No ST changes noted. Clinical impression: Sinus tachycardia and No evidence of ischemia. Interpreted by me. Reviewed by me. Administered Medications: 23:41 CANCELLED (Duplicate Order): ns 0.9% 500 ml 500 ml IV at 1 bolus once; to be given as a melissa bolus over 30 minutes 23:44 Drug: NS 0.9% IV 500 ml 500 ml IV at 1 bolus once; to be given as a bolus over 30 sd4 minutes Volume: 500 ml; Route: IV; Rate: 1 bolus; Site: right hand; 12/13 04:47 Follow up: Response: No adverse reaction; IV Status: Completed infusion [facility] 12/12 23:52 CANCELLED (Duplicate Order): ns 0.9% 1000 ml IV at 125 ml/hr once [facility] 12/13 02:01 Drug: Famotidine IVP 20 mg IVP once; dilute with 10 mL 0.9% NaCl; give over 2 minutes sd4 Route: IVP; Site: right forearm; 04:46 Follow up: Response: No adverse reaction [facility] 02:01 Drug: Rocephin IV 1 grams IV at per protocol once; Given slow IV push per pharmacy sd4 instructions Route: IV; Rate: per protocol; Site: right forearm; 04:46 Follow up: Response: No adverse reaction; IV Status: Completed infusion ss12 02:01 Drug: LevOfloxacin PO 750 mg PO once Route: PO; sd4 04:45 Follow up: Response: No adverse reaction ss12 02:01 Drug: Furosemide IVP 20 mg IVP once; give over 2 minutes Route: IVP; Site: right sd4 femoral; 04:44 Follow up: Response: No adverse reaction ss12 02:01 Drug: Potassium PO Effervescent Tablet 25 mEq PO once; dissolve in 4 ounces of water or sd4 juice Route: PO; 04:44 Follow up: Response: No adverse reaction ss12 02:02 Drug: Lovenox Sub-Q 40 mg Sub-Q once Route: Sub-Q; Site: right lower abdomen; sd4 04:46 Follow up: Response: No adverse reaction ss12 02:03 Drug: MethylPrednisoLONE IVP 125 mg IVP once Route: IVP; Site: right forearm; sd4 04:47 Follow up: Response: No adverse reaction ss12 02:03 Drug: Levalbuterol Inhalation 3.75 mg Inhalation once Route: Inhalation; sd4 02:03 Drug: Ipratropium Inhalation Aerosol 0.5 mg Inhalation once Route: Inhalation; sd4 02:06 CANCELLED (Duplicate Order): ns 0.9% (30 ml/kg) 30 ml/kg IV at bolus once; Sepsis melissa Protocol; to be given as a bolus over 90 minutes 03:24 Drug: Heparin (DVT/PE- Bolus per protocol) - HEParin IVP 80 units/kg IVP once; Max ss12 8,000 units {Co-Signature: br2 (Tori Vaughan RN).} Route: IVP; Site: right forearm; 04:43 Follow up: Response: No adverse reaction ss12 03:26 Drug: Heparin (DVT/PE Drip) 18 units/kg/hr - ([place] [address] units, D5W IV 500 ml) IV ss12 at per protocol Per protocol; Max initial rate 1800 units/hr {Co-Signature: br2 (oTri Vaughan RN).} Route: IV; Rate: per protocol; Site: right forearm; 04:44 Follow up: Response: No adverse reaction; IV Status: Infusion continued upon admission ss12 Disposition: 12/12 23:50 Critical Care:. melissa Disposition Summary: 12/12/24 23:48 Hospitalization Ordered Notes: Hospitalization Status: Inpatient Admission melissa Provider: Heriberto Villavicencio cha Condition: Stable melissa Problem: new melissa Symptoms: have improved melissa Bed/Room Type: Standard melissa Location: Intensive Care Unit(12/13/24 03:38) vk Room Assignment: 1-(12/13/24 03:41) cg Diagnosis - Obesity, unspecified melissa - COPD/ Chronic obstructive pulmonary disease with (acute) exacerbation melissa - Hypoxemia melissa - Cardiomegaly melissa - Type 2 diabetes mellitus with hyperglycemia melissa - UTI/ Urinary tract infection, site not specified melissa - Severe sepsis without septic shock melissa - Other pulmonary embolism with acute cor pulmonale - bilateral, significant , no melissa saddle Forms: - Medication Reconciliation Form melissa - SBAR form melissa - Leadership Thank You Letter melissa Critical care time excluding procedures: 23:50 Critical care time: Bedside Care: 30 minutes, Consultation: 10 minutes, Family melissa Intervention: 5 minutes. Total time: 45 minutes Signatures: Dispatcher [employer] EDMS Daniel Sánchez MD MD cha Garcia, Cindy, RN RN Tila Molina Belinda, RN RN br2 Phuc Friend, RN RN ss12 Ro Ornelas, RN RN sd4 Tori Vaughan RN br2 Corrections: (The following items were deleted from the chart) 22:21 22:21 BASIC METABOLIC PANEL+C.LAB.BRZ ordered. EDMS EDMS 22:21 22:21 CBC+H.LAB.BRZ ordered. EDMS EDMS 22:21 22:21 HEPATIC FUNCTION+C.LAB.BRZ ordered. EDMS EDMS 22:21 22:21 MAGNESIUM+C.LAB.BRZ ordered. EDMS EDMS 22:21 22:21 PROBNP+C.LAB.BRZ ordered. EDMS EDMS 22:21 22:21 PROTIME (+INR)+COAG.LAB.BRZ ordered. EDMS EDMS 22:21 22:21 Troponin High Sensitivity+C.LAB.BRZ ordered. EDMS EDMS 22:21 22:21 COVID-19 Ag + Flu A+B Ag+I.LAB.BRZ ordered. EDMS EDMS 22:21 22:21 UA Rfx Dano Cult if indicated+U.LAB.BRZ ordered. EDMS EDMS 22:21 22:21 Chest Single View+RAD.RAD.BRZ ordered. EDMS EDMS 22:29 22:27 Social history: Smoking status: Patient/guardian denies using tobacco, Stopped _ br2 months ago .25 br2 23:28 23:28 BLOOD CULTURE*+BA.LAB.BRZ ordered. EDMS EDMS 23:28 23:28 LACTATE+C.LAB.BRZ ordered. EDMS EDMS 23:41 23:36 NS 0.9% IV 500 ml 500 ml IV at 1 bolus once; to be given as a bolus over 30 melissa minutes ordered. melissa 23:52 23:36 NS 0.9% IV 1000 ml IV at 125 ml/hr once ordered. melissa melissa 12/13 02:06 02:05 NS 0.9% IV (30 ml/kg) 30 ml/kg IV at bolus once; Sepsis Protocol; to be given as melissa a bolus over 90 minutes ordered. melissa 02:40 08/04 23:48 Telemetry/MedSurg (Inpatient) melissa melissa 12/13 02:40 08/ 23:48 melissa melissa 12/13 03:36 02:40 Intensive Care Unit melissa vk 03:36 02:40 melissa vk 03:38 03:36 Telemetry/MedSurg (observation) vk vk 03:38 03:36 228 vk vk 03:41 03:38 vk cg
--- NOTE | 2024-12-12 23:49 | ER ---
Nurse's Notes [facility] Name: Pretty Wilson Age: 39 yrs Sex: Female : 1985 Arrival Date: 12/12/2024 Time: 22:10 Bed 20 Private MD: Diagnosis: Obesity, unspecified;COPD/ Chronic obstructive pulmonary disease with (acute) exacerbation;Hypoxemia;Cardiomegaly;Type 2 diabetes mellitus with hyperglycemia;UTI/ Urinary tract infection, site not specified;Severe sepsis without septic shock;Other pulmonary embolism with acute cor pulmonale-bilateral, significant , no saddle Presentation: 12/12 22:24 Chief complaint: Patient states: SOB FOR APPROX 1 WEEK WITH A COUGH. PT ALSO C/O PAIN br2 TO LEFT FOREARM AND RIGHT KNEE. DENIES INJURY. Coronavirus screen: Client denies travel out of the [place] in the last 14 days. Ebola Screen: Patient denies exposure to infectious person. Initial Sepsis Screen: Does the patient meet any 2 criteria? No. Patient's initial sepsis screen is negative. Does the patient have a suspected source of infection? No. Patient's initial sepsis screen is negative. Risk Assessment: Do you want to hurt yourself or someone else? Patient reports no desire to harm self or others. Onset of symptoms was December 05, 2024. 22:24 Method Of Arrival: Ambulatory br2 22:24 Acuity: MELYSSA 3 br2 Triage Assessment: 22:28 General: Appears uncomfortable, obese, Behavior is calm, cooperative. Pain: Complains br2 of pain in LEFT FOREARM AND RIGHT KNEE Pain currently is 10 out of 10 on a pain scale. Respiratory: Reports shortness of breath cough that is Onset: The symptoms/episode began/occurred 1 WEEK. 12/13 04:43 Respiratory: the patient has moderate shortness of breath. ss12 DEVELOPER ADVOCATE: 04:42 Not ss12 Historical: - Allergies: 12/12 22:27 Ibuprofen; br2 - PMHx: 22:27 CHF; Diabetes - NIDDM; Diabetes - NIDDM; frequent bronchitis; Hypertension; psoriasis; br2 - PSHx: 22:27 section; Ligation of fallopian tube; br2 - Immunization history:: Adult Immunizations not up to date. - Infectious Disease History:: Denies. - Social history:: Smoking status: Patient/guardian denies using tobacco, Patient/guardian denies using alcohol, street drugs. Screenin:46 [facility] ED Fall Risk Assessment (Adult) History of falling in the last 3 months, sd4 including since admission No falls in past 3 months (0 pts) Confusion or Disorientation No (0 pts) Intoxicated or Sedated No (0 pts) Impaired Gait No (0 pts) Mobility Assist Device Used No (0 pt) Altered Elimination No (0 pt) Score/Fall Risk Level 0 - 2 = Low Risk Oriented to surroundings, Maintained a safe environment, Educated pt \T\ family on fall prevention, incl call for assistance when getting out of bed. 12/13 04:39 Abuse screen: Denies threats or abuse. Denies injuries from another. Nutritional ss12 screening: No deficits noted. Tuberculosis screening: No symptoms or risk factors identified. Assessment: 12/12 23:46 General: Appears in no apparent distress. Behavior is anxious, Smells of Reports. Pain: sd4 Denies pain. Neuro: No deficits noted. Level of Consciousness is alert, Oriented to person, place, time, situation, Reports. Cardiovascular: Rhythm is regular. Respiratory: Reports shortness of breath cough that is Airway is patent Respiratory effort is even, unlabored, Respiratory pattern is regular, symmetrical, Breath sounds are diminished bilaterally. GI: Abdomen is round obese. : No deficits noted. No signs and/or symptoms were reported regarding the genitourinary system. EENT: No deficits noted. No signs and/or symptoms were reported regarding the EENT system. Derm: No deficits noted. No signs and/or symptoms reported regarding the dermatologic system. Musculoskeletal: No deficits noted. No signs and/or symptoms reported regarding the musculoskeletal system. 12/13 02:19 Reassessment: No changes from previously documented assessment. Patient and/or family sd4 updated on plan of care and expected duration. Pain level reassessed. Vital Signs: 12/12 22:24 BP 143 / 99; Pulse 111; Resp 24 S; Temp 97.1; Pulse Ox 90% on R/A; Weight 181.44 kg; br2 Height 5 ft. 6 in. ; Pain 10/10; 12/13 00:02 BP 125 / 88; Pulse 98; Resp 20; Pulse Ox 97% on R/A; sd4 04:38 ss12 12/12 22:24 Body Mass Index 64.56 (181.44 kg, 167.64 cm) br2 12/12 22:24 Pain Scale: Adult br2 04:38 Pt refusing vital signs ss12 ED Course: 12/12 22:13 Patient arrived in ED. gm2 22:19 Daniel Sánchez MD is Attending Physician. melissa 22:27 Triage completed. br2 22:28 Arm band placed on right wrist. br2 22:47 XRAY Chest (1 view) In Process Unspecified. EDMS 22:56 Initial lab(s) drawn, by me, sent to lab. Inserted saline lock: 20 gauge in right rk3 antecubital area, using aseptic technique. Blood collected. Flushed with 10 mL NS. 23:46 Patient has correct armband on for positive identification. Provided Education on: sd4 Difficulty breathing . 23:46 No provider procedures requiring assistance completed. Inserted saline lock: 20 gauge sd4 in right hand, using aseptic technique. 23:47 Heriberto Villavicencio MD is Hospitalizing Provider. [facility] 12/13 00:47 Ro Ornelas RN is Primary Nurse. sd4 01:14 Inserted saline lock: 20 gauge in right forearm, using aseptic technique. ,using bm8 aseptic technique. ultrasound guided. 01:25 CT Chest For PE Angio In Process Unspecified. EDMS 04:39 Patient admitted, IV remains in place. 12 Administered Medications: 12/12 23:41 CANCELLED (Duplicate Order): ns 0.9% 500 ml 500 ml IV at 1 bolus once; to be given as a melissa bolus over 30 minutes 23:44 Drug: NS 0.9% IV 500 ml 500 ml IV at 1 bolus once; to be given as a bolus over 30 sd4 minutes Volume: 500 ml; Route: IV; Rate: 1 bolus; Site: right hand; 12/13 04:47 Follow up: Response: No adverse reaction; IV Status: Completed infusion 12 12/12 23:52 CANCELLED (Duplicate Order): ns 0.9% 1000 ml IV at 125 ml/hr once [facility] 12/13 02:01 Drug: Famotidine IVP 20 mg IVP once; dilute with 10 mL 0.9% NaCl; give over 2 minutes sd4 Route: IVP; Site: right forearm; 04:46 Follow up: Response: No adverse reaction [facility] 02:01 Drug: Rocephin IV 1 grams IV at per protocol once; Given slow IV push per pharmacy sd4 instructions Route: IV; Rate: per protocol; Site: right forearm; 04:46 Follow up: Response: No adverse reaction; IV Status: Completed infusion ss12 02:01 Drug: LevOfloxacin PO 750 mg PO once Route: PO; sd4 04:45 Follow up: Response: No adverse reaction ss12 02:01 Drug: Furosemide IVP 20 mg IVP once; give over 2 minutes Route: IVP; Site: right sd4 femoral; 04:44 Follow up: Response: No adverse reaction ss12 02:01 Drug: Potassium PO Effervescent Tablet 25 mEq PO once; dissolve in 4 ounces of water or sd4 juice Route: PO; 04:44 Follow up: Response: No adverse reaction ss12 02:02 Drug: Lovenox Sub-Q 40 mg Sub-Q once Route: Sub-Q; Site: right lower abdomen; sd4 04:46 Follow up: Response: No adverse reaction ss12 02:03 Drug: MethylPrednisoLONE IVP 125 mg IVP once Route: IVP; Site: right forearm; sd4 04:47 Follow up: Response: No adverse reaction ss12 02:03 Drug: Levalbuterol Inhalation 3.75 mg Inhalation once Route: Inhalation; sd4 02:03 Drug: Ipratropium Inhalation Aerosol 0.5 mg Inhalation once Route: Inhalation; sd4 02:06 CANCELLED (Duplicate Order): ns 0.9% (30 ml/kg) 30 ml/kg IV at bolus once; Sepsis melissa Protocol; to be given as a bolus over 90 minutes 03:24 Drug: Heparin (DVT/PE- Bolus per protocol) - HEParin IVP 80 units/kg IVP once; Max ss12 8,000 units {Co-Signature: br2 (Tori Vaughan RN).} Route: IVP; Site: right forearm; 04:43 Follow up: Response: No adverse reaction ss12 03:26 Drug: Heparin (DVT/PE Drip) 18 units/kg/hr - ([place] [address] units, D5W IV 500 ml) IV ss12 at per protocol Per protocol; Max initial rate 1800 units/hr {Co-Signature: br2 (Tori Vaughan RN).} Route: IV; Rate: per protocol; Site: right forearm; 04:44 Follow up: Response: No adverse reaction; IV Status: Infusion continued upon admission ss12 Medication: 12/12 23:46 VIS not applicable for this client. sd4 Outcome: 23:48 Decision to Hospitalize by Provider. melissa 12/13 04:39 Admitted to ICU accompanied by nurse, via wheelchair, Report called to Nivia GUADARRAMA ss12 04:41 Condition: stable ss 04:41 Discharge instructions given to 05:31 Patient left the ED. ss12 Signatures: Dispatcher [employer] EDDE Daniel Sánchez MD MD cha Mitchell, Ginger 2 Adolfo Gonsales, RN RN bm8 Tori Vaughan RN RN br2 Cole Hinojosa rk3 Phuc Friend RN RN ss12 Ro Ornelas RN RN sd4 Tori Vaughan RN br2 Corrections: (The following items were deleted from the chart) 12/12 22:29 22:27 Social history: Smoking status: Patient/guardian denies using tobacco, Stopped _ br2 months ago .25 br2 12/13 05:31 04:39 Admitted to ICU accompanied by nurse, via wheelchair, Report called to Nicole GUADARRAMA ss12 ss12
[2024-12-12 23:55] LABS: Anisocytosis 3+; Blood Morphology Comment NOTED (NOT SEEN); Hypochromasia 1+; Microcytosis 1+; Polychromasia 1+; White Blood Cell Scan OK (OK)
[2024-12-13] MEDS ORDERED: IPRATROPIUM BROM 0.5MG/2.5ML ONE (00:59)
[2024-12-13] MEDS ORDERED: CEFTRIAXONE 1000 MG/VIAL ONE (00:59)
[2024-12-13] MEDS ORDERED: METHYLPREDNISOLONE 125 MG INJ ONE (00:59)
[2024-12-13] MEDS ORDERED: LEVALBUTEROL 1.25 MG/3 ML NEB ONE (01:00)
[2024-12-13] MEDS ORDERED: POTASSIUM 25 MEQ EFFERV TAB ONE (01:00)
[2024-12-13] MEDS ORDERED: FUROSEMIDE 20 MG/ 2ML VIAL ONE (01:00)
[2024-12-13] MEDS ORDERED: FAMOTIDINE 20 MG/2 ML VIAL IV ONE (01:01)
[2024-12-13] MEDS ORDERED: ENOXAPARIN 40 MG/0.4 ML SQ ONE (01:01)
--- NOTE | 2024-12-13 02:28 | RAD REPORT ---
ADDENDUM #1 THIS REPORT CONTAINS FINDINGS THAT MAY BE CRITICAL TO PATIENT CARE: The findings were verbally discus sed via telephone conference with Dr. Daniel Sánchez on 12/13/2024 2:29 AM CDT. The results were acknowledged and understood. Electronically signed by: Patrick Zuniga MD 12/13/2024 02:53 AM CDT End of Addendum EXAM: CT Angiography Chest With Intravenous Contrast CLINICAL HISTORY: Cough; Dyspnea TECHNIQUE: Axial computed tomographic angiography images of the chest with intravenous contrast. Sagittal and coronal reformatted images were created and reviewed. This CT exam was performed using one or more of the following dose reduction techniques: automated exposure control, adjustment of the mA a nd/or kV according to patient size, and/or use of iterative reconstruction technique. MIP reconstructed images were created and reviewed. COMPARISON: No relevant prior studies available. FINDINGS: Pulmonary arteries: Central, segmental and subsegmental pulmonary arterial filling defects througho ut all lobes bilaterally. No saddle embolus. Aorta: No acute findings. No thoracic aortic aneurysm. Lungs and pleural spaces: Focal peripheral right middle lobe consolidation with air bronchograms. No significant effusion. Heart: The heart is mildly enlarged. Flattening of the interventricular septum. Coronary artery zeynep cification. No significant pericardial effusion. Bones/joints: Multilevel spondylosis. No acute fracture. No dislocation. Soft tissues: Unremarkable. Lymph nodes: Unremarkable. No enlarged lymph nodes. Liver: The liver is enlarged. Spleen: The spleen is enlarged. IMPRESSION: 1. Bilateral pulmonary embolic disease with suspected right heart strain. 2. Focal right middle lobe consolidation with air bronchograms (atelectasis and/or infiltrate and/o r pulmonary infarct). 3. Other findings as above. Electronically signed by: Patrick Zuniga MD 12/13/2024 02:20 AM CDT Due to temporary technical issues with the [employer]ACS[employer] reporting system, reports are being bebe d by the in-house radiologist without review as a courtesy to ensure prompt reporting the interpreting radiologist is fully responsible for the content of the report. Transcribed Date/Time: 12/13/2024 3:11 AM
[2024-12-13] MEDS ORDERED: HEPARIN 5000 UNIT/ML 1 ML VIAL ONE (03:10)
[2024-12-13] MEDS ORDERED: HEPARIN/D5W 25,000 UNIT/500 ML BAG IV ONE (03:11)
[2024-12-13] MEDS ORDERED: ACETAMINOPHEN 500 MG TAB PO PRN (03:28)
[2024-12-13] MEDS: HEPARIN/D5W 25,000 UNIT/500 ML BAG IV SCH (05:25)
--- NOTE | 2024-12-13 06:13 | RAD REPORT ---
EXAM: XR Chest, 1 View CLINICAL HISTORY: The patient is 39 years old and is Female; Cough;Dyspnea TECHNIQUE: Frontal view of the chest. COMPARISON: No relevant prior studies available. FINDINGS: LUNGS: Unremarkable. No consolidation. PLEURAL SPACE: Unremarkable. No pneumothorax. HEART: Unremarkable. No cardiomegaly. MEDIASTINUM: Unremarkable. Normal mediastinal contour. BONES/JOINTS: Unremarkable. No acute fracture. UPPER ABDOMEN: Unremarkable as visualized. IMPRESSION: No acute cardiopulmonary process. Electronically signed by: Maris Villafana MD 12/12/2024 11:51 PM CDT RP Due to temporary technical issues with the PACS/[employer] reporting system, reports are being bebe d by the in-house radiologist without review as a courtesy to ensure prompt reporting the interpreting radiologist is fully responsible for the content of the report. Transcribed Date/Time: 12/13/2024 6:13 AM
--- NOTE | 2024-12-13 07:20 | P.HP ---
Certification for Inpatient Patient admitted to: Inpatient With expected LOS: >2 Midnights Patient will require the following post-hospital care: None Practitioner: I am a practitioner with admitting privileges, knowledge of patient current condition, hospital course, and medical plan of care. Services: Services provided to patient in accordance with Admission requirements found in Title 42 Section 412.3 of the Code of Federal Regulations Patient History Date of Service: 12/13/24 Reason for admission: Bilateral pulmonary embolism none saddle. History of Present Illness: Patient is a 39 years old female with past medical history of type 2 diabetes mellitus, CHF, morbid obesity, essential hypertension, psoriasis, who presents to the ER this morning complaining of worsening shortness of breath, with no associated chest pain. Patient states about 4 days ago she started having shortness of breath mostly with activities, states prior to arrival to ER, her shortness of breath progressively worsened both at rest and with activities which then prompted her to report to ER.. Patient woke up in the ER CT angiogram chest impression: Bilateral pulmonary embolic disease with suspected right heart strain. Focal right middle lobe consolidation with air bronchograms (atelectasis and/or infiltrate and/or pulmonary infarct. According to report received from ER Dr. Sánchez, he states he called and spoke to wood machinist apprentice Dr. Rhodes, requested patient to be admitted and started on heparin drip. During admission assessment, patient has shortness of breath mostly on exertion, denies of any chest pain, patient vital signs remained stable at this time. Allergies ibuprofen Allergy (Verified 09/11/11 18:26) Itching/Hives/Rash Home Medications: Metformin ER [Glucophage ER*] 1,000 mg PO LUNCH 11/09/24 Metoprolol Tartrate [Lopressor] 25 mg PO BID 11/09/24 lisinopriL [Lisinopril] 20 mg PO DAILY 11/09/24 Budesonide [Pulmicort*] 0.5 mg NEB BIDRESP 30 Days #60 amp 11/14/24 Ferrous Sulfate [Iron] 325 mg PO DAILY 30 Days #30 tab 11/14/24 Furosemide [Lasix*] 40 mg PO DAILY 10 Days #10 tab 11/14/24 Guaif/Dm [Robitussin Dm*] 10 ml PO Q6H PRN 10 Days #1 bottle 11/14/24 Mometasone/Formoterol [Dulera 100 Mcg/5 Mcg Inhaler] 2 puff IH BID inhaler 11/14/24 Nebulizer and Compressor [All-in-One Nebulizer System] 1 each MC BID 30 Days #1 ea 11/14/24 levoFLOXacin [Levaquin*] 750 mg PO DAILY 5 Days #5 tab 11/14/24 predniSONE [Deltasone*] 10 mg PO DAILY 10 Days #10 tab 11/14/24 - Past Medical/Surgical History Has patient received pneumonia vaccine in the past: No Diabetic: Yes -: HTN -: frequent Bronchitis -: CHF -: Diabetes mellitus type 2 -: x 3 -: Tubal Psychosocial/ Personal History: Unemployed, lives with family - Family History Father -: Heart disease, Hypertension, Diabetes Mother -: Heart disease, Hypertension, Diabetes, Kidney disease - Social History Smoking Status: Former smoker Alcohol use: No CD- Drugs: No Caffeine use: Yes Place of Residence: Home Review of Systems 10-point ROS is otherwise unremarkable Respiratory: Cough (Nonproductive), Shortness of Breath (At rest as well.), SOB with Excertion Physical Examination - Vital Signs Temperature: 97.1 F Blood Pressure: 120/80 Pulse: 96 Respirations: 22 Pulse Ox (%): 92 - Physical Exam General: Alert, Oriented x3, Cooperative HEENT: Atraumatic, Normocephalic, PERRLA, Mucous membr. moist/pink, Sclerae nonicteric Neck: Supple, 2+ carotid pulse no bruit, No LAD, Without JVD or thyroid abnormality Respiratory: Clear to auscultation bilaterally, Normal air movement Cardiovascular: No edema, Normal pulses, Regular rate/rhythm, Normal S1 S2, No gallops, No rubs, No murmurs Capillary refill: <2 Seconds Gastrointestinal: Normal bowel sounds, W/out hepatomegaly, No ascites, No tenderness, No masses, No rebound, No guarding, Distended (Secondary to morbid obesity.) Musculoskeletal: No clubbing, No swelling, No contractures, No erythema, No tenderness, No warmth Integumentary: No rashes, No breakdown, No significant lesion, No tenderness/swelling, No erythema, No warmth, No cyanosis Neurological: Normal gait, Normal speech, Normal strength at 5/5 x4 extr, Normal tone, Sensation intact, Cranial nerves 3-12 intact, Normal reflexes 2+, Normal affect Lymphatics: No axilla or inguinal lymphadenopathy - Studies Laboratory Data (last 24 hrs) 12/12/24 12/12/24 12/12/24 22:55 22:55 22:55 WBC 6.60 Hgb 11.1 L Hct 35.6 L Plt Count 169 PT 13.2 H INR 1.17 Sodium 139 Potassium 3.8 BUN 11 Creatinine 0.77 Glucose 258 H Magnesium 1.9 Total Bilirubin 0.6 AST < 10 L ALT 20 Alkaline Phosphatase 82 Female Exam - Breasts Breasts: Normal configuration Assessment and Plan - Plan Patient is a 39-year-old female who reports to the ER complaint of worsening shortness of breath, patient diagnosed with bilateral pulmonary embolism, with heart strain. Patient vital signs remain stable at this time. (1)Bilateral pulmonary embolisms. Patient received a loading dose of heparin 8000 units in the ER. -Heparin infusion 18 units/Kg/Hr -Consult wood machinist apprentice Dr. Rhodes. -Order echocardiogram. -Order ultrasound bilateral lower extremities venous. - Oxygen supplement 4 L. -Albuterol 2.5 mg nebulizer every 6 as needed. (2) UTI. Patient states for the past couple of days she has been having urgency and frequent burning urination. - Ceftriaxone 2 g IV daily. (3)Chronic type 2 diabetes mellitus. - ACHS. - Moderate sliding scale coverage. - Will hold metformin for [address] hours since patient had CT angio of the chest with contrast. (4)Chronic hypertension. - Metoprolol 25 mg p.o. twice daily. -Lisinopril 20 mg p.o. daily. (5)Explained the entire treatment plan to the patient, solicit questions answered and voiced understanding. Discharge Plan: Home Plan to discharge in: Greater than 2 days - Advance Directives Does patient have a Living Will: No Does patient have a Durable POA for Healthcare: No - Code Status/Comfort Care Code Status Assessed: Yes Code Status: Full Code Critical Care: Yes Time Spent Managing Pts Care (In Minutes): 55
[2024-12-13 07:43] LABS: Absolute Lymphocytes (CBC) 0.5 K/uL (0.7-4.9); Hematocrit 35.4 % (36.0-45.0); Hemoglobin 10.9 g/dL (12.0-15.0); MCH 21.3 pg (27.0-35.0); MCHC 30.7 g/dL (32.0-36.0); MCV 69.3 fL (80-100); MPV 9.3 fL (7.6-11.3); Nucleated RBC Absolute Count 0.0 (0-0); Nucleated Red Blood Cells % 0.0 % (0-0); RBC Red Blood Cell Count 5.11 M/uL (3.86-4.86); White Blood Count 6.90 thou/uL (4.3-10.9)
[2024-12-13] MEDS: ALBUTEROL 2.5 MG/3 ML NEB SOL NEB PRN (08:04)
[2024-12-13 08:06] LABS: Anion Gap 11.8 mEq/L (5.0-15.0); BUN Blood Urea Nitrogen 17.0 mg/dL (7-18); Glucose Level 389.0 mg/dL (74-106); Potassium 4.8 mEq/L (3.5-5.1)
[2024-12-13] MEDS: APIXABAN 5 MG TABLET PO SCH (08:14)
[2024-12-13] MEDS: INSULIN REGULAR (HUMAN) 100 UNIT/ML SQ SCH (08:14)
[2024-12-13] MEDS: DULERA 200/5 (MOMETASONE/FORMOTEROL) INHALER IH SCH (08:52)
--- NOTE | 2024-12-13 12:11 | P.CNS ---
Date of Consult: 12/13/24 Reason for Consult: Pulmonary embolism Chief Complaint: Bilateral pulmonary embolism none saddle. History of Present Illness: Patient is 39 years of age admitted to the hospital with acute on chronic shortness of breath apparently she got a pneumonia about a month ago then became worse for the past 4 to 5 days dyspnea on mild exertion patient has a history of COPD active smoker does not have insurance does not take any inhalers at home was diagnosed to have bilateral pulmonary emboli currently patient is stable Allergies ibuprofen Allergy (Verified 09/11/11 18:26) Itching/Hives/Rash Home Medications: Metformin ER [Glucophage ER*] 1,000 mg PO LUNCH 11/09/24 Metoprolol Tartrate [Lopressor] 25 mg PO BID 11/09/24 lisinopriL [Lisinopril] 20 mg PO DAILY 11/09/24 Budesonide [Pulmicort*] 0.5 mg NEB BIDRESP 30 Days #60 amp 11/14/24 Ferrous Sulfate [Iron] 325 mg PO DAILY 30 Days #30 tab 11/14/24 Mometasone/Formoterol [Dulera 100 Mcg/5 Mcg Inhaler] 2 puff IH BID inhaler 11/14/24 - Past Medical/Surgical History Diabetic: Yes -: HTN -: frequent Bronchitis -: CHF -: Diabetes mellitus type 2 -: x 3 -: Tubal Psychosocial/ Personal History: Unemployed, lives with family - Family History Father Medical History: Heart disease, Hypertension, Diabetes Mother Medical History: Heart disease, Hypertension, Diabetes, Kidney disease - Social History Smoking Status: Current every day smoker Alcohol use: No CD- Drugs: No Caffeine use: Yes Place of Residence: Home Review of Systems 10-point ROS is otherwise unremarkable Respiratory: Shortness of Breath Physical Examination Temp Pulse Resp BP Pulse Ox 96.8 F 58 13 124/50 L 96 12/13/24 08:00 12/13/24 10:00 12/13/24 10:00 12/13/24 10:00 12/13/24 10:00 General: Alert, Oriented x3 Respiratory: Clear to auscultation bilaterally Cardiovascular: No edema, Regular rate/rhythm, Normal S1 S2 Gastrointestinal: Normal bowel sounds, Soft and benign Laboratory Data (last 24 hrs) 12/12/24 12/12/24 12/12/24 22:55 22:55 22:55 WBC 6.60 Hgb 11.1 L Hct 35.6 L Plt Count 169 PT 13.2 H INR 1.17 Sodium 139 Potassium 3.8 BUN 11 Creatinine 0.77 Glucose 258 H Magnesium 1.9 Total Bilirubin 0.6 AST < 10 L ALT 20 Alkaline Phosphatase 82 - Problems (1) Pulmonary embolism Current Visit: Yes Status: Acute Plan: Patient is 39 years of age admitted with bilateral pulmonary emboli he is curren tly doing well oxygenation is satisfactory apparently has a history of obstructive airways disease does not use any bronchodilators DC IV heparin start patient on Eliquis use an inhaled bronchodilator chest x-ray shows some right middle lobe consolidation labs chemistries reviewed white count is normal no evidence of active sepsis there is no indication for thrombolytic therapy plan to ambulate possible discharge follow-up with me in 2 weeks
[2024-12-13] MEDS: METOPROLOL TAR 25 MG TAB PO SCH (16:53)
[2024-12-13] MEDS: CEFTRIAXONE 2,000 MG in NA CHLORIDE 0.9% 100 ML IV SCH (21:02)
[2024-12-14] MEDS: HYDROCODONE/APAP 7.5/325 MG TAB PO PRN (02:07)
[2024-12-14] MEDS: ZOLPIDEM TARTRATE 5 MG TABLET PO PRN (02:08)
--- NOTE | 2024-12-14 03:14 | P.PN ---
Date of Service: 12/13/24
[2024-12-14 03:40] VITALS: BMI 64.5
[2024-12-14 06:05] LABS: Absolute Lymphocytes (CBC) 1.3 K/uL (0.7-4.9); Hematocrit 32.4 % (36.0-45.0); Hemoglobin 10.0 g/dL (12.0-15.0); MCH 21.2 pg (27.0-35.0); MCHC 30.9 g/dL (32.0-36.0); MCV 68.7 fL (80-100); MPV 8.9 fL (7.6-11.3); Nucleated RBC Absolute Count 0.0 (0-0); Nucleated Red Blood Cells % 0.2 % (0-0); RBC Red Blood Cell Count 4.72 M/uL (3.86-4.86); White Blood Count 6.90 thou/uL (4.3-10.9)
[2024-12-14 06:31] LABS: ALT/SGPT 16.0 U/L (13-56); AST/SGOT 13.0 U/L (15-37); Albumin 3.0 g/dL (3.4-5.0); Albumin/Globulin Ratio 0.9 (1.1-1.8); Alkaline Phosphatase 69.0 U/L (45-117); Anion Gap 10.0 mEq/L (5.0-15.0); BUN Blood Urea Nitrogen 19.0 mg/dL (7-18); Globulin 3.2 g/dL (2.3-3.5); Glucose Level 280.0 mg/dL (74-106); Potassium 4.0 mEq/L (3.5-5.1)
--- NOTE | 2024-12-14 10:07 | ECHO ---
HEIGHT: 5 ft 6 in WEIGHT: 400 lb 2.24 oz DATE OF STUDY: 12/13/[address]: Westley Lamar NP 2-DIMENSIONAL: YES M.MODE: YES DOPPLER: YES COLOR FLOW: YES TDS: YES PORTABLE: YES DEFINITY: BUBBLE STUDY: DIAGNOSIS: BILATERAL PLEURAL EFFUSION WITH HEART STRAIN CARDIAC HISTORY: CATHERIZATION: NO SURGERY: NO PROSTHETIC VALVE: NO PACEMAKER: NO MEASUREMENTS (cm) DIASTOLIC (NORMALS) SYSTOLIC (NORMALS) IVSd 1.2 (0.6-1.2) LA Diam 3.7 (1.9-4.0) LVEF 60-65% LVIDd 4.1 (3.5-5.7) LVIDs 2.8 (2.0-3.5) %FS 30% LVPWd 1.2 (0.6-1.2) Ao Diam 2.7 (2.0-3.7) 2 DIMENSIONAL ASSESSMENT: RIGHT ATRIUM: NORMAL LEFT ATRIUM: NORMAL RIGHT VENTRICLE: NORMAL LEFT VENTRICLE: NORMAL TRICUSPID VALVE: MILD TRICUSPID REGURITATION MITRAL VALVE: NORMAL PULMONIC VALVE: NORMAL AORTIC VALVE: NORMAL PERICARDIAL EFFUSION: NONE AORTIC ROOT: NORMAL LEFT VENTRICULAR WALL MOTION: NORMAL DOPPLER/COLOR FLOW: NORMAL COMMENTS: 1. NORMAL LEFT VENTRICULAR SYSTOLIC FUNCTION, EJECTION FRACTION 60-65%, NORMAL WALL MOTION 2. NORMAL DIASTOLIC FUNCTION 3. NORMAL RIGHT VENTRICULAR FUNCTION 4. SEVERE PULMONARY HYPERTENSION (RIGHT VENTRICULAR SYSTOLIC PRESSURE GREATER THAN 60 mmHg) TECHNOLOGIST: TRUDY BELTRAN
--- NOTE | 2024-12-14 13:47 | RAD REPORT ---
EXAMINATION: US Extrem Venous W Compress Lan CLINICAL INDICATION: [facility] MAIN TO r/o DVT. Patient has Lan PE with heart strain Y TECHNIQUE: Complete bilateral duplex sonography of the BILATERAL lower extremity veins was performed. The examination included compression for vein patency, color Doppler imaging and flow augmentation in response to distal compression of the distal external iliac, common femoral, femoral, popliteal, t ibial, and great and small saphenous veins. COMPARISON: No prior exam. FINDINGS: Duplex sonography testing of the veins of the BILATERAL lower extremity was performed. Color flow efren ging shows all veins to be compressible with [id number] color filling. Pulsatile and phasic flow is present within all lower extremity deep and superficial veins examined. IMPRESSION: Technically chanllenging exam, with no evidence of deep vein or superficial vein thrombosis.
[2024-12-15 05:09] LABS: Absolute Lymphocytes (CBC) 1.7 K/uL (0.7-4.9); Hematocrit 31.7 % (36.0-45.0); Hemoglobin 9.7 g/dL (12.0-15.0); MCH 21.1 pg (27.0-35.0); MCHC 30.5 g/dL (32.0-36.0); MPV 9.0 fL (7.6-11.3); Nucleated RBC Absolute Count 0.0 (0-0); Nucleated Red Blood Cells % 0.0 % (0-0); RBC Red Blood Cell Count 4.58 M/uL (3.86-4.86); White Blood Count 6.20 thou/uL (4.3-10.9)
[2024-12-15 05:13] LABS: MCV 69.2 fL (80-100)
[2024-12-15 05:22] LABS: ALT/SGPT 23 U/L (13-56); Albumin 2.9 g/dL (3.4-5.0); Albumin/Globulin Ratio 1.0 (1.1-1.8); Alkaline Phosphatase 58 U/L (45-117); Anion Gap 7.9 mEq/L (5.0-15.0); BUN Blood Urea Nitrogen 19 mg/dL (7-18); Globulin 3.0 g/dL (2.3-3.5); Glucose Level 218 mg/dL (74-106); Potassium 3.9 mEq/L (3.5-5.1)
[2024-12-15 05:39] LABS: AST/SGOT < 10 U/L (15-37)
[2024-12-15] MEDS: POTASSIUM CL SA 10 MEQ TAB PO ONE (09:34)
--- NOTE | 2024-12-15 12:24 | P.PN ---
Subjective Date of Service: 12/15/24 Chief Complaint: Bilateral pulmonary embolism Subjective: Improving (Patient is improving no new complaints still has some dyspnea on exertion) Review of Systems General: Weakness Respiratory: Shortness of Breath Physical Examination - Vital Signs Temperature: 98.5 F Blood Pressure: 140/73 Pulse: 85 Respirations: 17 Pulse Ox (%): 94 - Physical Exam General: Alert, Oriented x3 Respiratory: Clear to auscultation bilaterally, Diminished Cardiovascular: No edema, Normal S1 S2 Assessment And Plan - Current Problems (Diagnosis) (1) Pulmonary embolism Current Visit: Yes Status: Acute Plan: Pulmonary is the patient is 39 years of age admitted with bilateral pulmonary embolism patient has severe pulmonary hypertension absence of right ventricular dilatation probably secondary to pulmonary emboli currently not an indication for thrombolytic therapy blood pressure is stable she is hypoxic may have underlying obesity hypoventilation syndrome patient has been encouraged to take some deep breaths she uses very shallow breathing plan to ambulate the patient labs chemistries reviewed mildly anemic patient does have a microcytic anemia check iron levels
[2024-12-15 13:31] LABS: Ferritin 8.8 ng/mL (8-252); Iron 16.0 ug/dL (50-170); Transferrin 269.0 mg/dL (200-360)
[2024-12-15 14:20] VITALS: O2SAT 94
[2024-12-15 16:59] VITALS: BP 121/79; TEMP 98.9
== END 2024-12-15 17:31 | disposition home or self-care (01) | DRG 176 ==
LOC: ER 22:10 → 2ND 12-13 03:24 → 3RD-ICU 12-13 03:47 → 4TH 12-13 11:12
PROVIDERS: ADMIT Hospitalist; ATTEND Hospitalist
DX: I26.99 Other pulmonary embolism without acute cor pulmonale (principal); N39.0 Urinary tract infection, site not specified; J44.1 Chronic obstructive pulmonary disease with (acute) exacerbation; Z68.44 Body mass index [BMI] 60.0-69.9, adult; Z11.52 Encounter for screening for COVID-19; Z88.8 Allergy status to other drugs, medicaments and biological substances; Z79.84 Long term (current) use of oral hypoglycemic drugs; Z79.52 Long term (current) use of systemic steroids; Z79.2 Long term (current) use of antibiotics; Z98.51 Tubal ligation status; Z98.890 Other specified postprocedural states; I11.0 Hypertensive heart disease with heart failure; I50.9 Heart failure, unspecified; Z87.01 Personal history of pneumonia (recurrent); D64.9 Anemia, unspecified; I27.20 Pulmonary hypertension, unspecified; Z72.0 Tobacco use; E66.01 Morbid (severe) obesity due to excess calories; E11.65 Type 2 diabetes mellitus with hyperglycemia
CPT/HCPCS: 36415; 71045; 71275; 80048; 80053; 80076; 81001; 82728; 82947; 83036; 83540; 83605; 83735; 83880; 84466; 84484; 85025; 85610; 85730; 87040; 87077; 87086; 87088; 87186; 87428; 93005; 93306; 93970; 96372; 99285; J0696; J1644; J1650; J1815; J1938; J2919; J3535; J7040; J7613; J7614; J7644; Q9967

== ENCOUNTER 2024-12-17 22:56 | Emergency (ER) | payer OTHER, SELFPAY ==
--- OUTSIDE RECORDS SUMMARY | 2024-12-17 23:00 | XMS REPORT | Continuity of Care Document ---
Author Name Unknown Address [address] [facility] [address] [place] [address] [facility] [place] Address [address] [facility] [address] [place] [address] Care Team Providers Care Refining Supervisor Name Role Phone Gregorio Ramos Primary Care Physician [phone] Praveena Santana Attending Clinician Unavailable Orin Briscoe Attending Clinician Unavailable Problems Condition Name Condition Details Condition Category Status Onset Date Resolution Date Last Treatment Date Treating Clinician Comments Source Heart disease Heart disease Problem Active [facility] [id number] Morbid obesity Problem Active [facility] [id number] Psoriasis Problem Active Commo n [facility] [id number] Uncontroll ed type 2 diabetes mellitus with hyperglyce megan Problem Active [facility] [id number] BMI 70 and over, adult Problem Active [facility] [id number] Snoring Problem Active [facility] [id number] Acute pain of right knee Problem Active [facility] Memory problem Memory problem Problem Active [facility] [id number] Low TSH level Problem Active [facility] [id number] Congestive heart failure, unspecifie d HF chronicity , unspecifie d heart failure type Problem Active [facility] [id number] Hypertensi on, unspecifie d type Problem Active [facility] Cardiac arrhythmia Abnormal heart rhythm Problem Active [facility] [id number] Anemia, unspecifie d type Problem Active [facility] Disorder of cardiovasc ular system Circulatio n problem Problem Active [facility] [id number] Peripheral edema Problem Active [facility] [id number] Tobacco use Problem Active [facility] [id number] Apnea Problem Active [facility] Allergies, Adverse Reactions, Alerts Allergy Name Allergy Type Status Severity Reaction(s) Onset Date Inactive Date Treating Clinician Comments Source ibuprofe n Propensi ty to adverse reaction to drug Active 814 00:00: 00 Kaiden Dawson ibuprofe n ibuprofe n Active swelling of lips [facility] Social History Social Habit Start Date Stop Date Quantity Comments Source History of Tobacco Use Current Smoker [facility] Sex Assigned At [facility] Smoking Status Start Date Stop Date Source Current Smoker 2021-02-10 00:00:00 [facility] Medications Ordered Medication Name Filled [...] Orin Millender 1 tablet with a meal [facility] metFORMIN HCl 1000 MG metFORMIN HCl 1000 MG 01-08 00:00: 00 No 1{table t_with_ a_meal} QD metFORMIN HCl 1000 MG metFORMIN HCl 1000 MG metFORMIN HCl 1000 MG 01-08 00:00: 00 No 1{table t_with_ a_meal} QD metFORMIN HCl 1000 MG Lisinopril Lisinopril Yes Orin Millender 1 tablet [facility] MetFORMIN HCl ER (MOD) MetFORMIN HCl ER (MOD) Yes Orin Millender 1 tablet [facility] Metoprolol Succinate Metoprolol Succinate Yes Orin Millender 1 capsule [facility] Symbicort Symbicort Yes Orin Millender 2 puffs [facility] Xopenex HFA Xopenex HFA Yes Orin Millender 1 puff as needed [facility] Furosemide Furosemide Yes Orin Millender 1 tablet as needed for swelling [facility] ProAir HFA ProAir HFA Yes Orin Millender 2 puffs as needed [facility] Lisinopril 10 MG Lisinopril 10 [...] blood pressure systolic 2021-02-11 13:20:00 134 mm[Hg] [facility] blood pressure diastolic 2021-02-11 13:20:00 74 mm[Hg] [facility] height 2021-02-11 13:20:00 64.00 [in_i] Com mon [facility] weight 2021-02-11 13:20:00 425 [lb_av] Comm on [facility] temperature 2021-02-11 13:20:00 97.2 [degF] Com [facility] bmi 2021-02-11 13:20:00 72.94 kg/m2 Comm on [facility] oximetry 2021-02-11 13:20:00 97 % Commo n [facility] respiratory rate 2021-02-11 13:20:00 20 /min [facility] height 2020-08-30 15:20:00 64.00 [in_i] Com [facility] weight 2020-08-30 15:20:00 430 [lb_av] Comm on [facility] temperature 2020-08-30 15:20:00 97.5 [degF] Com [facility] bmi 2020-08-30 15:20:00 73.8 kg/m2 Commo n [facility] oximetry 2020-08-30 15:20:00 97 % Commo n [facility] respiratory rate 2020-08-30 15:20:00 15 /min [facility] blood pressure systolic 2020-08-30 15:20:00 120 mm[Hg] [facility] blood pressure diastolic 2020-08-30 15:20:00 80 mm[Hg] [facility] BP Systolic 2024-11-28 15:40:00 122 [...] Source 2021-09-09 11:46:00 Outpatient [facility] Santana [facility] [id number] [facility] 2021-06-05 13:55:56 Outpatient [facility] Sant[facility] [id number] [facility] 2021-06-05 12:40:15 Outpatient Praveena Santana [facility] [id number] [facility] 2021-06-05 12:24:00 Outpatient [facility] [id number] [facility] 2021-06-05 11:42:03 Outpatient Orin Briscoe [facility] [id number] [facility] 2021-06-05 11:14:01 Outpatient Orin Briscoe [facility] [id number] [facility] 2024-11-28 15:39:07 2024-11-28 15:39:07 Outpatient SFA SFA [id number] Kaiden Dawson 2024-11-28 00:00:00 2024-11-28 00:00:00 Outpatient Visit SFA [id number] Kaiden Dawson 2024-11-22 16:45:25 2024-11-22 16:45:25 Outpatient SFA [id number] Kaiden Dawson 2024-11-22 00:00:00 2024-11-22 00:00:00 Outpatient Visit SFA [id number] Kaiden Dawson 2024-06-27 13:13:35 2024-06-27 13:13:35 Outpatient SFA SFA [id number] Kaiden Dawson 2024-06-27 00:00:00 2024-06-27 00:00:00 Outpatient Visit SFA [id number] Kaiden Dawson 2024-05-24 00:00:00 2024-05-24 00:00:00 Outpatient Visit SFA [id number] Kaiden Dawson 2024-03-28 10:13:26 2024-03-28 10:13:26 Outpatient SFA SFA [id number] Kaiden Dawson 2024-03-28 00:00:00 2024-03-28 00:00:00 Outpatient Visit SFA [id number] Kaiden Dawson 2023-12-23 17:24:49 2023-12-23 17:24:49 Outpatient SFA SFA [id number] Kaiden Dawson 2023-12-23 00:00:00 2023-12-23 00:00:00 Outpatient Visit SFA [id number] Kaiden Dawson 2023-10-07 13:33:55 2023-10-07 13:33:55 Outpatient SFA SFA [id number] Kaiden Dawson 2023-10-07 00:00:00 2023-10-07 00:00:00 Outpatient Visit SFA [id number] Kaiden Dawson 2023-09-23 13:37:26 2023-09-23 13:37:26 Outpatient SFA SFA [id number] Kaiden Dawson 2023-09-23 00:00:00 2023-09-23 00:00:00 Outpatient Visit SFA [id number] Kaiden Dawson 2023-06-25 17:13:30 2023-06-25 17:13:30 Outpatient SFA SFA [id number] Kaiden Dawson 2021-05-09 00:00:00 2021-05-09 00:00:00 (TEL) STLMLC [facility] [id number] [facility] 2021-02-21 00:00:00 2021-02-21 00:00:00 (TEL) STLMLC STLMLC [id number] [facility] 2021-02-11 00:00:00 2021-02-11 00:00:00 OFFICE VISIT EST PT LEVEL 3 STLMLC STLMLC [id number] [facility] 2021 00:00:00 2021 00:00:00 (TEL) STLMLC STLMLC [id number] [facility] 2020-11-29 00:00:00 2020-11-29 00:00:00 (TEL) STLMLC STLMLC [id number] [facility] 2020-08-30 00:00:00 2020-08-30 00:00:00 OFFICE VISIT EST PT LEVEL 3 STLMLC STLMLC [id number] [facility] 2020-06-06 00:00:00 2020-06-06 00:00:00 (TEL) STLMLC STLMLC [id number] [facility] 2020-01-09 11:40:00 2020-01-09 11:40:00 Outpatient [facility] [id number] [facility] 2020-01-09 00:00:00 2020-01-09 00:00:00 Outpatient [facility] [id number] [facility] 2019-08-04 14:56:00 2019-08-04 14:56:00 Outpatient [facility] [id number] [facility] 2019-07-25 11:00:00 2019-07-25 11:00:00 Outpatient [facility] [id number] [facility] 2019-07-20 13:53:00 2019-07-20 13:53:00 Outpatient [facility] [id number] [facility] 2018-09-17 08:05:00 2018-09-17 08:05:00 Outpatient [facility] [id number] [facility] 2018-09-03 14:00:00 2018-09-03 14:00:00 Outpatient [facility] [id number] [facility] Results Test Description Test Time Test Comments Results Result Co mments Source Kaiden Coronel AustinLIPID [id number] 00:00:00* Test Item Value Reference Range Interpretation Comme nts CHOLESTEROL (test code = 2210) 149 MG/DL TRIGLYCERIDES (test code = 2232) 109 MG/DL HDL CHOLESTEROL (test code = 2220) 31 MG/DL CALC LDL CHOL (test code = 2237) 97 MG/DL RISK RATIO LDL/HDL (test cod e = 2238) 3.13 RATIO Kaiden DawsonCOMPREHENSIVE METABOLIC [id number] 00:00:00* Test Item Value Reference Range Interpretation Comme nts GLUCOSE (test code = 2217) 170 MG/DL BUN (test code = 2208) 10 MG/DL CREATININE (test code = 2214) 0.49 MG/DL eGFR (2020 CKD-EPI) (test code = 62401) 121 ML/MIN/1.73 CALC BUN/CREAT (test code = [...] code = 2219) 11 U/L Kaiden DawsonHEMOGLOBIN [id number] 00:00:00* Test Item Value Reference Range Interpretation Comme nts HEMOGLOBIN A1c (test code = 96469) 7.8 % Kaiden Coronel AustinLIPID [id number] 00:00:00* Test Item Value Reference Range Interpretation Comme nts CHOLESTEROL (test code = 2210) 149 MG/DL TRIGLYCERIDES (test code = 2232) 109 MG/DL HDL CHOLESTEROL (test code = 2220) 31 MG/DL CALC LDL CHOL (test code = 2237) 97 MG/DL RISK RATIO LDL/HDL (test cod e = 2238) 3.13 RATIO Kaiden DawsonCOMPREHENSIVE METABOLIC [id number] 00:00:00* Test Item Value Reference Range Interpretation Comme nts GLUCOSE (test code = 2217) 170 MG/DL BUN (test code = 2208) 10 MG/DL CREATININE (test code = 2214) 0.49 MG/DL eGFR (2020 CKD-EPI) (test code = 96028) 121 ML/MIN/1.73 CALC BUN/CREAT (test code = [...] code = 2219) 11 U/L Kaiden DawsonHEMOGLOBIN [id number] 00:00:00* Test Item Value Reference Range Interpretation Comme nts HEMOGLOBIN A1c (test code = 02696) 7.8 % Kaiden Coronel AustinLIPID [id number] 00:00:00* Test Item Value Reference Range Interpretation Comme nts CHOLESTEROL (test code = 2210) 149 MG/DL TRIGLYCERIDES (test code = 2232) 109 MG/DL HDL CHOLESTEROL (test code = 2220) 31 MG/DL CALC LDL CHOL (test code = 2237) 97 MG/DL RISK RATIO LDL/HDL (test cod e = 2238) 3.13 RATIO Kaiden DawsonCOMPREHENSIVE METABOLIC [id number] 00:00:00* Test Item Value Reference Range Interpretation Comme nts GLUCOSE (test code = 2217) 170 MG/DL BUN (test code = 2208) 10 MG/DL CREATININE (test code = 2214) 0.49 MG/DL eGFR (2020 CKD-EPI) (test code = 63397) 121 ML/MIN/1.73 CALC BUN/CREAT (test code = [...] code = 2219) 11 U/L Kaiden DawsonHEMOGLOBIN [id number] 00:00:00* Test Item Value Reference Range Interpretation Comme nts HEMOGLOBIN A1c (test code = 06859) 7.8 % Kaiden DawsonLIPID [id number] 00:00:00* Test Item Value Reference Range Interpretation Comme nts CHOLESTEROL (test code = 2210) 149 MG/DL TRIGLYCERIDES (test code = 2232) 109 MG/DL HDL CHOLESTEROL (test code = 2220) 31 MG/DL CALC LDL CHOL (test code = 2237) 97 MG/DL RISK RATIO LDL/HDL (test cod e = 2238) 3.13 RATIO Kaiden DawsonCOMPREHENSIVE METABOLIC [id number] 00:00:00* Test Item Value Reference Range Interpretation [...] 2218) 11 U/L Kaiden DawsonALBUMIN/CREATININE RATIO, URINE, [id number] 06:56:22* Test Item Value Reference Range Interpretation Comme nts CREATININE, URINE, CONC. (test code = 2071) 107.2 MG/DL NOT ESTAB ALBUMIN, URINE, RANDOM (test code = 45192) 5.2 MG/DL NOT ESTAB CALC ALBUMIN/CREAT, RND (test code = 32765) 49 MG/G <30 H Note: Albumin/Cr eatinine ratio reference interval reflects ADA and NKF guidelines. UNLESS OTHERWISE INDICATED, ALL TESTING PERFORMED AT [facility] [address] [place] [address] INFANT CHILDCARE PROVIDER: JULIANA SALDAÑA M.D. CLIA NUMBER [id number] [facility] [place]. [id number] LIPID [id number] 05:22:09* Test Item Value Reference Range Interpretation [...] SPECIMENS. FOR MOREINFORMATION, SEE CLIENT ANNOUNCEMENT AT [email or web address] RISK RATIO LDL/HDL (test code = 2237) 3.44 RATIO <3.22 H COMPREHENSIVE METABOLIC [id number] 05:22:09* Test Item Value Reference Range Interpretation Comme nts GLUCOSE (test code = 2216) 256 MG/DL 70-99 H BUN (test code = 2207) 8 MG/DL 6-20 CREATININE (test code = 2213) 0.45 MG/DL 0.60-1.30 L eGFR (2020 CKD-EPI) (test code = 03671) 125 ML/MIN/1.73 >60 CALC BUN/CREAT (test code [...] code = 2219) 14 U/L 5-40 HEMOGLOBIN [id number] 03:26:04* Test Item Value Reference Range Interpretation Comme nts HEMOGLOBIN A1c (test code = 07210) 8.0 % 4.2-5.6 H [employer] GUIDELINES FOR HGB A1C: [...] CONSIDER ALTERNATE TESTING OR LABORATORY CONSULTATION. HEMOGLOBIN [id number] 00:00:00* Test Item Value Reference Range Interpretation Comme [facility] HEMOGLOBIN A1c (test code = 38611) 8.0 % Kaiden DawsonLIPID [id number] 00:00:00* Test Item Value Reference Range Interpretation Comme nts CHOLESTEROL (test code = 2210) 168 MG/DL TRIGLYCERIDES (test code = 2232) 144 MG/DL HDL CHOLESTEROL (test code = 2220) 32 MG/DL CALC LDL CHOL (test code = 2237) 110 MG/DL RISK RATIO LDL/HDL (test cod e = 2238) 3.44 RATIO Kaiden DawsonCOMPREHENSIVE METABOLIC [id number] 00:00:00* Test Item Value Reference Range Interpretation Comme nts GLUCOSE (test code = 2217) 256 MG/DL BUN (test code = 2208) 8 MG/DL CREATININE (test code = 2214) 0.45 MG/DL eGFR (2020 CKD-EPI) (test code = 55075) 125 ML/MIN/1.73 CALC BUN/CREAT (test code = [...] 2219) 14 U/L Kaiden DawsonALBUMIN/CREATININE RATIO, RANDOM [id number] 00:00:00* Test Item Value Reference Range Interpretation Comme [facility] CREATININE, URINE, CONC. (te st code = 2072) 107.2 MG/DL ALBUMIN, URINE, RANDOM (test code = 34641) 5.2 MG/DL CALC ALBUMIN/CREAT, RND (delta t code = 34462) 49 MG/G Kaiden DawsonHEMOGLOBIN [id number] 00:00:00* Test Item Value Reference Range Interpretation Comme [facility] HEMOGLOBIN A1c (test code = 65757) 8.0 % Kadien DawsonLIPID [id number] 00:00:00* Test Item Value Reference Range Interpretation Comme nts CHOLESTEROL (test code = 2210) 168 MG/DL TRIGLYCERIDES (test code = 2232) 144 MG/DL HDL CHOLESTEROL (test code = 2220) 32 MG/DL CALC LDL CHOL (test code = 2237) 110 MG/DL RISK RATIO LDL/HDL (test cod e = 2238) 3.44 RATIO Kaiden DawsonCOMPREHENSIVE METABOLIC [id number] 00:00:00* Test Item Value Reference Range Interpretation Comme nts GLUCOSE (test code = 2217) 256 MG/DL BUN (test code = 2208) 8 MG/DL CREATININE (test code = 2214) 0.45 MG/DL eGFR (2020 CKD-EPI) (test code = 85344) 125 ML/MIN/1.73 CALC BUN/CREAT (test code = [...] 2219) 14 U/L Kaiden DawsonALBUMIN/CREATININE RATIO, RANDOM [id number] 00:00:00* Test Item Value Reference Range Interpretation Comme [facility] CREATININE, URINE, CONC. (te st code = 2072) 107.2 MG/DL ALBUMIN, URINE, RANDOM (test code = 13567) 5.2 MG/DL CALC ALBUMIN/CREAT, RND (delta t code = 26511) 49 MG/G Kaiden DawsonHEMOGLOBIN [id number] 00:00:00* Test Item Value Reference Range Interpretation Comme [facility] HEMOGLOBIN A1c (test code = 96123) 8.0 % Kaiden DawsonLIPID [id number] 00:00:00* Test Item Value Reference Range Interpretation Comme nts CHOLESTEROL (test code = 2210) 168 MG/DL TRIGLYCERIDES (test code = 2232) 144 MG/DL HDL CHOLESTEROL (test code = 2220) 32 MG/DL CALC LDL CHOL (test code = 2237) 110 MG/DL RISK RATIO LDL/HDL (test cod e = 2238) 3.44 RATIO Kaiden DawsonCOMPREHENSIVE METABOLIC [id number] 00:00:00* Test Item Value Reference Range Interpretation Comme nts GLUCOSE (test code = 2217) 256 MG/DL BUN (test code = 2208) 8 MG/DL CREATININE (test code = 2214) 0.45 MG/DL eGFR (2020 CKD-EPI) (test code = 15007) 125 ML/MIN/1.73 CALC BUN/CREAT (test code = [...] 2219) 14 U/L Kaiden DawsonALBUMIN/CREATININE RATIO, RANDOM [id number] 00:00:00* Test Item Value Reference Range Interpretation Comme nts CREATININE, URINE, CONC. (te st code = 2072) 107.2 MG/DL ALBUMIN, URINE, RANDOM (test code = 69342) 5.2 MG/DL CALC ALBUMIN/CREAT, RND (delta t code = 51840) 49 MG/G Kaiden DawsonHEMOGLOBIN [id number] 00:00:00* Test Item Value Reference Range Interpretation Comme [facility] HEMOGLOBIN A1c (test code = 99009) 8.0 % Kaiden DawsonLIPID [id number] 00:00:00* Test Item Value Reference Range Interpretation Comme nts CHOLESTEROL (test code = 2210) 168 MG/DL TRIGLYCERIDES (test code = 2232) 144 MG/DL HDL CHOLESTEROL (test code = 2220) 32 MG/DL CALC LDL CHOL (test code = 2237) 110 MG/DL RISK RATIO LDL/HDL (test cod e = 2238) 3.44 RATIO Kaiden DawsonCOMPREHENSIVE METABOLIC [id number] 00:00:00* Test Item Value Reference Range Interpretation Comme nts GLUCOSE (test code = 2217) 256 MG/DL BUN (test code = 2208) 8 MG/DL CREATININE (test code = 2214) 0.45 MG/DL eGFR (2020 CKD-EPI) (test code = 07958) 125 ML/MIN/1.73 CALC BUN/CREAT (test code = [...] 14 U/L Kaiden Coronel AustinALBUMIN/CREATININE RATIO, RANDOM [id number] 00:00:00* Test Item Value Reference Range Interpretation Comme [facility] CREATININE, URINE, CONC. (te st code = 2072) 107.2 MG/DL ALBUMIN, URINE, RANDOM (test code = 56840) 5.2 MG/DL CALC ALBUMIN/CREAT, RND (delta t code = 27556) 49 MG/G Kaiden DawsonHEMOGLOBIN [id number] 00:00:00* Test Item Value Reference Range Interpretation Comme [facility] HEMOGLOBIN A1c (test code = 56305) 8.0 % Kaiden DawsonLIPID [id number] 00:00:00* Test Item Value Reference Range Interpretation Comme nts CHOLESTEROL (test code = 2210) 168 MG/DL TRIGLYCERIDES (test code = 2232) 144 MG/DL HDL CHOLESTEROL (test code = 2220) 32 MG/DL CALC LDL CHOL (test code = 2237) 110 MG/DL RISK RATIO LDL/HDL (test cod e = 2238) 3.44 RATIO Kaiden DawsonCOMPREHENSIVE METABOLIC [id number] 00:00:00* Test Item Value Reference Range Interpretation Comme nts GLUCOSE (test code = 2217) 256 MG/DL BUN (test code = 2208) 8 MG/DL CREATININE (test code = 2214) 0.45 MG/DL eGFR (2020 CKD-EPI) (test code = 37374) 125 ML/MIN/1.73 CALC BUN/CREAT (test code = [...] 14 U/L Kaiden Coronel AustinALBUMIN/CREATININE RATIO, RANDOM [id number] 00:00:00* Test Item Value Reference Range Interpretation Comme nts CREATININE, URINE, CONC. (te st code = 2072) 107.2 MG/DL ALBUMIN, URINE, RANDOM (test code = 40707) 5.2 MG/DL CALC ALBUMIN/CREAT, RND (delta t code = 39677) 49 MG/G Kaiden DawsonHEMOGLOBIN [id number] 00:00:00* Test Item Value Reference Range Interpretation Comme [facility] HEMOGLOBIN A1c (test code = 90708) 8.0 % Kaiden DawsonLIPID [id number] 00:00:00* Test Item Value Reference Range Interpretation Comme nts CHOLESTEROL (test code = 2210) 168 MG/DL TRIGLYCERIDES (test code = 2232) 144 MG/DL HDL CHOLESTEROL (test code = 2220) 32 MG/DL CALC LDL CHOL (test code = 2237) 110 MG/DL RISK RATIO LDL/HDL (test cod e = 2238) 3.44 RATIO Kaiden DawsonCOMPREHENSIVE METABOLIC [id number] 00:00:00* Test Item Value Reference Range Interpretation Comme nts GLUCOSE (test code = 2217) 256 MG/DL BUN (test code = 2208) 8 MG/DL CREATININE (test code = 2214) 0.45 MG/DL eGFR (2020 CKD-EPI) (test code = 09373) 125 ML/MIN/1.73 CALC BUN/CREAT (test code = [...] 2219) 14 U/L Kaiden DawsonALBUMIN/CREATININE RATIO, RANDOM [id number] 00:00:00* Test Item Value Reference Range Interpretation Comme nts CREATININE, URINE, CONC. (te st code = 2072) 107.2 MG/DL ALBUMIN, URINE, RANDOM (test code = 86261) 5.2 MG/DL CALC ALBUMIN/CREAT, RND (delta t code = 61057) 49 MG/G Kaiden DawsonHEMOGLOBIN [id number] 00:00:00* Test Item Value Reference Range Interpretation Comme [facility] HEMOGLOBIN A1c (test code = 25103) 8.0 % Kaiden DawsonLIPID [id number] 00:00:00* Test Item Value Reference Range Interpretation Comme nts CHOLESTEROL (test code = 2210) 168 MG/DL TRIGLYCERIDES (test code = 2232) 144 MG/DL HDL CHOLESTEROL (test code = 2220) 32 MG/DL CALC LDL CHOL (test code = 2237) 110 MG/DL RISK RATIO LDL/HDL (test cod e = 2238) 3.44 RATIO Kaiden DawsonCOMPREHENSIVE METABOLIC [id number] 00:00:00* Test Item Value Reference Range Interpretation Comme nts GLUCOSE (test code = 2217) 256 MG/DL BUN (test code = 2208) 8 MG/DL CREATININE (test code = 2214) 0.45 MG/DL eGFR (2020 CKD-EPI) (test code = 47038) 125 ML/MIN/1.73 CALC BUN/CREAT (test code = [...] 2219) 14 U/L Kaiden DawsonALBUMIN/CREATININE RATIO, RANDOM [id number] 00:00:00* Test Item Value Reference Range Interpretation Comme nts CREATININE, URINE, CONC. (te st code = 2072) 107.2 MG/DL ALBUMIN, URINE, RANDOM (test code = 25941) 5.2 MG/DL CALC ALBUMIN/CREAT, RND (delta t code = 07541) 49 MG/G Kaiden DawsonHEMOGLOBIN [id number] 00:00:00* Test Item Value Reference Range Interpretation Comme nts A1C (test code = 4548-4) 8.3% HEMOGLOBIN A1C* Test Item Value Reference Range Interpretation Comme nts A1C (test code = 4548-4) 8.2 Notes Date/Time Note Provider Source [facility]2025-07-15 00:00:00 [facility]2025-02-17 00:00:00 [facility]2025-01-14 00:00:00 [facility]2024-11-18 00:00:00 [facility]2024-08-14 00:00:00 [facility]2024-05-29 00:00:00 [facility]2024-05-15 00:00:00 [facility]
[2024-12-18 01:14] LABS: Absolute Lymphocytes (CBC) 1.7 K/uL (0.7-4.9); Hematocrit 34.1 % (36.0-45.0); Hemoglobin 10.7 g/dL (12.0-15.0); MCH 21.2 pg (27.0-35.0); MCHC 31.4 g/dL (32.0-36.0); MCV 67.6 fL (80-100); MPV 8.5 fL (7.6-11.3); Nucleated RBC Absolute Count 0.0 (0-0); Nucleated Red Blood Cells % 0.0 % (0-0); RBC Red Blood Cell Count 5.05 M/uL (3.86-4.86); White Blood Count 7.80 thou/uL (4.3-10.9)
[2024-12-18 01:23] LABS: D-Dimer 1.211 FEUug/mL (0-0.500); PT Prothrombin Time 14.0 SECONDS (10-13.0); Protime INR 1.25
[2024-12-18 01:57] LABS: Anisocytosis 3+; Blood Morphology Comment NOTED (NOT SEEN); Hypochromasia 1+; Microcytosis 1+; Polychromasia SLIGHT; White Blood Cell Scan OK (OK)
[2024-12-18] MEDS ORDERED: LIDOCAINE VISCOUS 2% 10ML ORAL SOLN ONE (02:01)
[2024-12-18] MEDS ORDERED: MAGNES/ALUMIN/SIMET 30ML UCUP ONE (02:01)
--- NOTE | 2024-12-18 02:19 | RAD REPORT ---
PROCEDURE: XR Chest, 1 View CLINICAL INDICATION: The patient is 39 years old and is Female; SOB. TECHNIQUE: Frontal view of the chest. COMPARISON: XR Chest 12/12/2024. 12/13/2024 CTA chest FINDINGS: LUNGS: Prominence of the bilateral interstitial lung markings diffusely, similar to prior exam, wit h no discrete focal consolidation. PLEURAL SPACE: No appreciable pleural effusion or pneumothorax. MEDIASTINUM: Stable prominence of the cardiomediastinal silhouette, likely exaggerated secondary to portable technique, lordotic positioning, and patient body habitus. BONES/JOINTS: No acute osseous abnormality. IMPRESSION: Prominence of the bilateral interstitial lung markings diffusely, similar to prior exam, with no disc rete focal consolidation. Suspected to be artifactual secondary to underpenetration, given lordotic positioning and patient body habitus. However, interstitial pulmonary edema or atypical pneumonia cou ld appear similarly. Correlation with proBNP levels recommended. No sequela of previously demonstrated pulmonary embolism identified, allowing for patient positioning . Electronically signed by: Cholo Reza MD 12/18/2024 02:14 AM CDT Due to temporary technical issues with the PACS/HowDo reporting system, reports are being bebe d by the in-house radiologist without review as a courtesy to ensure prompt reporting the interpreting radiologist is fully responsible for the content of the report. Transcribed Date/Time: 12/18/2024 2:18 AM
[2024-12-18 02:21] LABS: ALT/SGPT 23.0 U/L (13-56); AST/SGOT 9.0 U/L (15-37); Alkaline Phosphatase 78.0 U/L (45-117); Anion Gap 11.0 mEq/L (5.0-15.0); BUN Blood Urea Nitrogen 10.0 mg/dL (7-18); Bilirubin Indirect, Calculated 0.5 mg/dL (0.2-0.8); Glucose Level 208.0 mg/dL (74-106); Potassium 4.0 mEq/L (3.5-5.1)
[2024-12-18 02:22] LABS: Albumin 3.3 g/dL (3.4-5.0); Albumin/Globulin Ratio 1.0 (1.1-1.8); Globulin 3.4 g/dL (2.3-3.5); Magnesium 1.8; NT PRO-BNP 256.0 pg/mL (<125); Troponin High Sensitivity 5.7 (<58.9)
--- NOTE | 2024-12-18 05:09 | RAD REPORT ---
ADDENDUM #1 Critical results were called by Dr. Nelson to Abelardo Baird on 12/18/2024 4:21 AM CDT. The findings were d iscussed personally by phone with, and an understanding was acknowledged. Compared to the previous examination clot burden and right heart strain is similar from 12/13/2024 CTA chest exam. Electronically signed by: Mark Nelson MD 12/18/2024 04:22 AM CDT RP End of Addendum EXAMINATION: CT CHEST ANGIOGRAPHY WITH IV CONTRAST INDICATION: 39 years old Female 1985 Shortness of breath. COMPARISON(S): XR Chest 12/17/2024 and CTA Chest 12/13/2024. TECHNIQUE: This examination was performed according to an angiographic protocol with 3D post-processi ng. This involves 3D reconstructions, MIPs, volume rendered images and/or shaded surface rendering. One or more of the following dose reduction techniques were used: Automated exposure control, adjustm ent of the mA and/or kV according to patient size, and/or iterative reconstruction. CONTRAST: As stated in examination. FINDINGS: Lower Neck: Visualized thyroid gland and soft tissues are normal. Lungs and Airways: Airways are clear. No evidence of airspace or interstitial process. No nodules. Pleura: No pleural effusion. No pneumothorax. Hemidiaphragms are normally positioned. Mediastinum and Lymph Nodes: No mediastinal mass or fluid collection. Normal size mediastinal, hilar, and axillary lymph nodes. Thoracic Aorta: Normal caliber and configuration. Pulmonary Arteries: Less than optimal quality examination. There are there are bilateral first second and third order pulmonary thromboemboli in the lower lobes left and right. Heart: Normal heart size. No pericardial effusion. Evidence of right heart strain with RV LV ratio 1. 45. No bowing of the septum. Osseous Structures and Chest Wall: There is a chronic appearing rib deformity involving the left late ral 10th rib. 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 IMPRESSION: Bilateral extensive lower lobe pulmonary emboli with right heart strain. Critical result communication pathway initiated. Electronically signed by: Mark Nelson MD 12/18/2024 04:16 AM CDT RP Due to temporary technical issues with the PACS/Powerscribe reporting system, reports are being bebe d by the in-house radiologist without review as a courtesy to ensure prompt reporting the interpreting radiologist is fully responsible for the content of the report. Transcribed Date/Time: 12/18/2024 5:08 AM
--- NOTE | 2024-12-18 06:34 | RAD REPORT ---
Extremity Venous Uni Ltd CLINICAL INDICATION: Female, 39 years old.shortness of breath TECHNIQUE: Complete duplex sonography of the lower extremity veins was performed of the affected limb . The examination included compression for vein patency, color Doppler imaging and flow augmentation in response to distal compression of the distal external iliac, common femoral, femoral, popliteal, peroneal, tibial and great saphenous veins. [id number]. COMPARISON: No prior exams FINDINGS: Duplex sonography imaging demonstrates all deep veins examined to be fully compressible with spontane ous, phasic and augmented flow in the affected limb. Note that the distal common femoral vein was difficult to visualize. IMPRESSION: No evidence of deep venous thrombosis in the left lower extremity. Distal common femoral vein difficu lt to assess, however due to body habitus.
--- NOTE | 2024-12-18 07:02 | EDPHYS ---
Physician Documentation [facility] Name: Pretty Wilson Age: 39 yrs Sex: Female : 1985 Arrival Date: 12/17/2024 Time: 22:56 Bed 19 Private MD: ED Physician Abelardo Baird HPI: 12/18 02:15 This 39 yrs old Female presents to ER via Ambulatory with complaints of Shortness Of ms3 Breath, Leg Swelling. 02:15 39-year-old female with past medical history of congestive heart failure, diabetes, ms3 frequent bronchitis, hypertension, psoriasis, pulmonary embolism presents to the emergency department for left leg and foot swelling that began yesterday. Patient states she is experiencing pain in the back of her leg. Patient also notes at 12 PM she began experiencing chest discomfort which has resolved. Patient endorses shortness of breath on walking into the emergency department tonight. Patient states she is compliant with her Eliquis.. 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 - Infectious Disease History:: Denies. - Social history:: Smoking status: Patient denies any tobacco usage or history of. ROS: 12/18 02:15 Constitutional: Negative for fever, and chills. ms3 Cardiovascular: Negative for chest pain, and palpitations. Respiratory: Negative for shortness of breath, cough, wheezing, and pleuritic chest pain, Abdomen/GI: Negative for abdominal pain, nausea, vomiting, diarrhea, and constipation, Cardiovascular: Positive for chest pain, Respiratory: Positive for shortness of breath, MS/extremity: Positive for Left leg pain and swelling, Exam: 02:15 Cardiovascular: Regular rate and rhythm with a normal S1 and S2. No gallops, murmurs, ms3 or rubs. Normal PMI, no JVD. No pulse deficits. Respiratory: Lungs have equal breath sounds bilaterally, clear to auscultation and percussion. No rales, rhonchi or wheezes noted. No increased work of breathing, no retractions or nasal flaring. Abdomen/GI: Soft, non-tender, with normal bowel sounds. No distension or tympany. No guarding or rebound. No evidence of tenderness throughout. Skin: Warm, dry with normal turgor. Normal color with no rashes, no lesions, and no evidence of cellulitis. MS/ Extremity: Pulses equal, no cyanosis. Neurovascular intact. Full, normal range of motion. 02:15 Constitutional: The patient appears in no acute distress, alert, awake, comfortable, non-toxic, obese, 02:21 ECG was reviewed by the Attending Physician. ms3 Vital Signs: 12/17 23:12 BP 171 / 86; Pulse 101; Resp 20; Temp 97.2(TE); Pulse Ox 95% on R/A; Weight 181.44 kg jb4 (R); Height 5 ft. 5 in. (R); 12/18 00:30 BP 144 / 82; Pulse 94; Resp 20 S; Pulse Ox 100% on R/A; ss12 02:40 BP 147 / 82; Pulse 93; Resp 18 S; Pulse Ox 96% on R/A; ss12 03:44 BP 131 / 73; Pulse 90; Resp 18 S; Pulse Ox 98% on R/A; ss12 05:01 BP 138 / 94; Pulse 96; Resp 18; Pulse Ox 94% ; ss12 06:12 BP 140 / 70; Pulse 92; Resp 16; Pulse Ox 94% on R/A; ss12 12/17 23:12 Body Mass Index 66.56 (181.44 kg, 165.1 cm) jb4 [place] Coma Score: 01:00 Eye Response: spontaneous(4). Motor Response: obeys commands(6). Verbal Response: ss12 oriented(5). Total: 15. 03:44 Eye Response: spontaneous(4). Motor Response: obeys commands(6). Verbal Response: ss12 oriented(5). Total: 15. MDM: 12/17 23:12 Medical Screening Exam initiated ms3 12/18 02:15 Differential diagnosis: Anxiety Reaction CHF exacerbation, Myocardial Infarction ms3 pulmonary edema, Pulmonary Embolism. 07:03 Data reviewed: vital signs, nurses notes, lab test result(s), EKG, radiologic studies, ms3 and as a result, I will discharge patient. I considered the following discharge prescriptions or medication management in the emergency department Medications were administered in the Emergency Department. See MAR. Independent interpretation of the following test(s) in the Emergency Department EKG: See my EKG interpretation above. Counseling: I had a detailed discussion with the patient and/or guardian regarding the historical points, exam findings, and any diagnostic results supporting the discharge/admit diagnosis, lab results, radiology results, the need for outpatient follow up, to return to the emergency department if symptoms worsen or persist or if there are any questions or concerns that arise at home. Special discussion: I discussed with the patient/guardian in detail that at this point there is no indication for admission to the hospital. It is understood, however, that if the symptoms persist or worsen the patient needs to return immediately for re-evaluation. ED course: Discussed unchanged CT and negative left lower extremity DVT ultrasound with patient. Patient's labs with negative troponin and mildly elevated BNP. Patient to follow-up with her primary care physician in 2 to 3 days. Return precautions discussed to include shortness of breath, chest pain, worsening symptoms, or any other concerns. At time of discharge patient questioning her diagnosis. At bedside I explained each lab, CT and US results. Patient unhappy her legs are swollen and would like them fixed prior to discharge. Explained with patient US did not reveal DVT and leg swelling could be pedal edema vs venous insufficiency vs other causes that can be worked up as an outpatient. Patient requesting Lasix rx. Lasix rx given.. 12/17 23:06 Order name: Basic Metabolic Panel; Complete Time: 02:32 ms3 12/17 23:06 Order name: CBC with Diff; Complete Time: 02:19 ms3 12/17 23:06 Order name: D-Dimer; Complete Time: 02:19 ms3 12/17 23:06 Order name: LFT's; Complete Time: 02:32 ms3 12/17 23:06 Order name: Magnesium; Complete Time: 02:32 ms3 12/17 23:06 Order name: NT PRO-BNP; Complete Time: 02:32 ms3 12/17 23:06 Order name: PT-INR; Complete Time: 02:19 ms3 12/17 23:06 Order name: Troponin HS; Complete Time: 02:32 ms3 12/18 01:20 Order name: CBC Smear Scan; Complete Time: 02:19 EDMS 12/17 23:06 Order name: XRAY Chest (1 view) ms3 12/17 23:13 Order name: CT Chest For PE Angio ms3 12/17 23:14 Order name: US Extremity Venous Unilateral Ltd; Complete Time: 06:39 ms3 12/17 23:06 Order name: Cardiac monitoring; Complete Time: 00:11 ms3 12/17 23:06 Order name: EKG - Nurse/Tech; Complete Time: 00:26 ms3 12/17 23:06 Order name: IV Saline Lock; Complete Time: 00:11 ms3 12/17 23:06 Order name: Labs collected and sent; Complete Time: 05:17 ms3 12/17 23:06 Order name: O2 Per Protocol; Complete Time: 00:10 ms3 12/17 23:06 Order name: O2 Sat Monitoring; Complete Time: 00:11 ms3 EC:21 Rate is 94 beats/min. Rhythm is regular. QRS [place] is Normal. DC interval is normal. QRS ms3 interval is normal. Clinical impression: NSR w/ Non-specific ST/T Changes. Interpreted by me. Reviewed by me. Administered Medications: 01:50 Drug: GI Cocktail without - (Maalox PO 30 ml, Lidocaine Mucous Membrane 2 % 15 ss12 ml) PO once Route: PO; 02:30 Follow up: Response: No adverse reaction ss12 07:15 Drug: Furosemide PO 20 mg PO once Route: PO; bp 07:37 Follow up: Response: No adverse reaction bp Disposition Summary: 12/18/24 07:01 Discharge Ordered Notes: Location: Home ms3 Condition: Stable ms3 Diagnosis - Pulmonary Embolism ms3 - Pedal Edema ms3 Followup: ms3 - With: Grady Rivera DO - When: 1 - 2 days - Reason: Recheck today's complaints Discharge Instructions: - Discharge Summary Sheet ms3 - Pulmonary Embolism ms3 - Peripheral Edema ms3 Forms: - Medication Reconciliation Form ms3 - Antibiotic Education ms3 - Prescription Opioid Use ms3 - Patient Portal Instructions ms3 - Leadership Thank You Letter ms3 Prescriptions: - Lasix 20 mg Oral tablet - take 1 tablet ORAL route once daily; 5 tablet; Refills: 0, Product Selection ms3 Permitted Signatures: Dispatcher [employer] Chandra Molina RN RN jb4 Hernan Miles RN RN bp Baird, Abelardo, DO DO ms3 Phuc Friend, RN RN ss12 Corrections: (The following items were deleted from the chart) 12/17 23:06 23:06 BASIC METABOLIC PANEL+C.LAB.BRZ ordered. EDMS EDMS 23:06 23:06 CBC+H.LAB.BRZ ordered. EDMS EDMS 23:06 23:06 D-DIMER+COAG.LAB.BRZ ordered. EDMS EDMS 23:06 23:06 HEPATIC FUNCTION+C.LAB.BRZ ordered. EDMS EDMS 23:06 23:06 MAGNESIUM+C.LAB.BRZ ordered. EDMS EDMS 23:06 23:06 PROBNP+C.LAB.BRZ ordered. EDMS EDMS 23:06 23:06 PROTIME (+INR)+COAG.LAB.BRZ ordered. EDMS EDMS 23:06 23:06 Troponin High Sensitivity+C.LAB.BRZ ordered. EDMS EDMS 23:06 23:06 Chest Single View+RAD.RAD.BRZ ordered. EDMS EDMS 12/18 07:16 07:03 ED course: Discussed unchanged CT and negative left lower extremity DVT ms3 ultrasound with patient. Patient's labs with negative troponin and mildly elevated BNP. Patient requesting Lasix for her lower extremity pedal edema. Patient to follow-up with her primary care physician in 2 to 3 days. All questions were answered. Return precautions discussed to include shortness of breath, chest pain, worsening symptoms, or any other concerns.. ms3
--- NOTE | 2024-12-18 07:02 | ER ---
Nurse's Notes [facility] Name: Pretty Wilson Age: 39 yrs Sex: Female : 1985 Arrival Date: 12/17/2024 Time: 22:56 Bed 19 Private MD: Diagnosis: Pulmonary Embolism;Pedal Edema Presentation: 12/17 23:12 Chief complaint: Patient states: I am having left leg swelling and I currently have ANISA jb4 PE's that I was diagnosed with the other day. Today my shortness of breath is worsening. Coronavirus screen: At this time, the client does not indicate any symptoms associated with coronavirus-19. Ebola Screen: No symptoms or risks identified at this time. Initial Sepsis Screen: Does the patient meet any 2 criteria? HR > 90 bpm. Yes Does the patient have a suspected source of infection? No. Patient's initial sepsis screen is negative. Risk Assessment: Do you want to hurt yourself or someone else? Patient reports no desire to harm self or others. Onset of symptoms was December 17, 2024. Transition of care: patient was not received from another setting of care. 23:12 Method Of Arrival: Ambulatory 4 23:12 Acuity: MELYSSA 2 jb4 Triage Assessment: 12/18 02:30 Respiratory: the patient has mild shortness of breath. ss12 02:30 Respiratory: Reports shortness of breath on exertion. ss12 02:30 Respiratory: Onset: The symptoms/episode began/occurred gradually. 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 - Infectious Disease History:: Denies. - Social history:: Smoking status: Patient denies any tobacco usage or history of. Screenin/10 02:29 [place] ED Fall Risk Assessment (Adult) History of falling in the last 3 months, ss12 including since admission No falls in past 3 months (0 pts) Confusion or Disorientation No (0 pts) Intoxicated or Sedated No (0 pts) Impaired Gait No (0 pts) Mobility Assist Device Used No (0 pt) Altered Elimination No (0 pt) Score/Fall Risk Level 0 - 2 = Low Risk Oriented to surroundings, Maintained a safe environment, Educated pt \T\ family on fall prevention, incl call for assistance when getting out of bed, Assessed \T\ reinforced patient's understanding of fall precautions. Abuse screen: Denies threats or abuse. Denies injuries from another. Nutritional screening: No deficits noted. Tuberculosis screening: No symptoms or risk factors identified. Assessment: 12/17 23:15 General: Appears in no apparent distress. comfortable, Behavior is calm, cooperative, ss12 quiet. Pain: Denies pain. Neuro: No deficits noted. Level of Consciousness is awake, alert, obeys commands, Oriented to person, place, time, situation. Cardiovascular: No deficits noted. Denies chest pain, Patient's skin is warm and dry. Rhythm is sinus rhythm. Respiratory: Airway is patent Respiratory effort is even, unlabored, Respiratory pattern is regular, symmetrical. GI: No deficits noted. Abdomen is round non-distended. : No deficits noted. No signs and/or symptoms were reported regarding the genitourinary system. EENT: No deficits noted. No signs and/or symptoms were reported regarding the EENT system. Derm: Skin is intact, Skin is dry, Skin is pink, warm \T\ dry. normal, Rash noted that is eczema like rash on bilateral arm. Musculoskeletal: Swelling present in lower leg Reports leg swelling. 12/18 00:30 Reassessment: Patient appears in no apparent distress at this time. Patient and/or ss12 family updated on plan of care and expected duration. Pain level reassessed. Patient is alert, oriented x 3, equal unlabored respirations, skin warm/dry/pink. 01:30 Reassessment: Patient appears in no apparent distress at this time. Patient and/or ss12 family updated on plan of care and expected duration. Pain level reassessed. Patient is alert, oriented x 3, equal unlabored respirations, skin warm/dry/pink. 03:00 Reassessment: Patient appears in no apparent distress at this time. Patient and/or ss12 family updated on plan of care and expected duration. Pain level reassessed. Patient is alert, oriented x 3, equal unlabored respirations, skin warm/dry/pink. 04:11 Reassessment: Patient appears in no apparent distress at this time. Patient and/or ss12 family updated on plan of care and expected duration. Pain level reassessed. Patient is alert, oriented x 3, equal unlabored respirations, skin warm/dry/pink. 05:01 Reassessment: Patient appears in no apparent distress at this time. Patient and/or ss12 family updated on plan of care and expected duration. Pain level reassessed. Patient is alert, oriented x 3, equal unlabored respirations, skin warm/dry/pink. 06:12 Reassessment: Patient appears in no apparent distress at this time. Patient and/or ss12 family updated on plan of care and expected duration. Pain level reassessed. Patient is alert, oriented x 3, equal unlabored respirations, skin warm/dry/pink. Vital Signs: 12/17 23:12 BP 171 / 86; Pulse 101; Resp 20; Temp 97.2(TE); Pulse Ox 95% on R/A; Weight 181.44 kg jb4 (R); Height 5 ft. 5 in. (R); 12/18 00:30 BP 144 / 82; Pulse 94; Resp 20 S; Pulse Ox 100% on R/A; ss12 02:40 BP 147 / 82; Pulse 93; Resp 18 S; Pulse Ox 96% on R/A; ss12 03:44 BP 131 / 73; Pulse 90; Resp 18 S; Pulse Ox 98% on R/A; ss12 05:01 BP 138 / 94; Pulse 96; Resp 18; Pulse Ox 94% ; ss12 06:12 BP 140 / 70; Pulse 92; Resp 16; Pulse Ox 94% on R/A; ss12 12/17 23:12 Body Mass Index 66.56 (181.44 kg, 165.1 cm) jb4 [place] Coma Score: 01:00 Eye Response: spontaneous(4). Motor Response: obeys commands(6). Verbal Response: ss12 oriented(5). Total: 15. 03:44 Eye Response: spontaneous(4). Motor Response: obeys commands(6). Verbal Response: ss12 oriented(5). Total: 15. ED Course: 12/17 23:00 Patient arrived in ED. gm2 23:04 Abelardo Baird DO is Attending Physician. ms3 23:15 Triage completed. jb4 23:15 Arm band placed on right wrist. jb4 23:55 XRAY Chest (1 view) In Process Unspecified. EDMS 12/18 00:03 Phuc Friend, THIERRY is Primary Nurse. ss12 02:29 No provider procedures requiring assistance completed. ss12 02:30 Patient has correct armband on for positive identification. Provided Education on: plan ss12 of care. 03:29 US Extremity Venous Unilateral Ltd In Process Unspecified. EDMS 03:36 CT Chest For PE Angio In Process Unspecified. EDMS 07:00 Grady Rivera DO is Referral Physician. ms3 07:28 Primary Nurse role handed off by Phuc Friend, THIERRY bp 07:28 Hernan Miles, THIERRY is Primary Nurse. bp 07:37 IV discontinued, intact, bleeding controlled, No redness/swelling at site. Pressure bp dressing applied. Administered Medications: 01:50 Drug: GI Cocktail without - (Maalox PO 30 ml, Lidocaine Mucous Membrane 2 % 15 ss12 ml) PO once Route: PO; 02:30 Follow up: Response: No adverse reaction ss12 07:15 Drug: Furosemide PO 20 mg PO once Route: PO; bp 07:37 Follow up: Response: No adverse reaction bp Medication: 02:30 VIS not applicable for this client. ss12 Outcome: 07:01 Discharge ordered by MD. ms3 07:37 Discharged to home ambulatory, bp 07:37 Condition: stable 07:37 Discharge instructions given to patient, Instructed on discharge instructions, follow up and referral plans. medication usage, Demonstrated understanding of instructions, follow-up care, medications, Prescriptions given X 1, 07:38 Patient left the ED. bp Signatures: Dispatcher [employer] EDMS Chandra Ayoub, RN RN jb4 Hernan Miles, RN RN bp Abelardo Baird DO DO ms3 Luciana Laurent gm2 Phuc Friend RN RN ss12 Corrections: (The following items were deleted from the chart) 02:45 01:00 BP 113 / 73; Pulse 82bpm; Resp 20bpm; Pulse Ox 98%; ss12 ss12 02:45 02:00 BP 121 / 81; Pulse 84bpm; Resp 20bpm; Spontaneous; Pulse Ox 97% RA; ss12 ss12 02:45 00:34 BP 122 / 79; Pulse 82bpm; Resp 20bpm; Spontaneous; Pulse Ox 98% RA; ss12 ss12
[2024-12-18] MEDS ORDERED: FUROSEMIDE 20 MG TABLET ONE (07:31)
[2024-12-18 08:08] VITALS: TEMP 97.2
[2024-12-18 08:14] VITALS: O2SAT 94
[2024-12-18 08:16] VITALS: BP 140/70
== END 2024-12-18 07:38 | disposition home or self-care (01) ==
LOC: ER 22:56
DX: I26.99 Other pulmonary embolism without acute cor pulmonale (principal)
CPT/HCPCS: 36415; 71045; 71275; 80048; 80076; 83735; 83880; 84484; 85025; 85379; 85610; 93005; 93971; 99283; Q9967